=== PATIENT | female | born 1955 | race Caucasian/White ===

== ENCOUNTER 2020-09-09 10:23 | Outpatient (REF) | payer MEDICARE, OTHER, SELFPAY ==
--- NOTE | 2020-09-09 | US_ITS ---
EXAMINATION: US RETROPERITONEAL LIMITED (RENAL ONLY) CLINICAL INFORMATION: Renal stones. COMPARISON: Ultrasound renals only dated 03/08/2020 and 02/06/2020. KUB dated 02/14/2020 and 11/29/2019. CT abdomen and pelvis without contrast dated 02/22/2019. TECHNIQUE: Real-time imaging of the kidneys. FINDINGS: RIGHT KIDNEY: 11 x 3.8 x 4.5 cm (SAG x AP x TRV). The kidney is normal in size, contour, and echogenicity. Renal cortical thickness is normal. No focal parenchymal lesions or hydronephrosis. There are innumerable echogenic stones in the medulla questioning medullary calcinosis. The largest stone measures 1.9 x 0.8 x 0.7 cm in the upper pole. No caliectasis seen. LEFT KIDNEY: 10.3 x 4.2 x 5.2 cm (SAG x AP x TRV). The kidney is normal in size, contour, and echogenicity. Renal cortical thickness is normal. No focal parenchymal lesions or hydronephrosis. There are innumerable echogenic stones in the medulla questioning medullary calcinosis. The largest midpole stone measures 0.7 x 1.0 x 0.8 cm. US/US renal BI IMPRESSION: Bilateral medullary sponge kidney. Largest upper pole right renal and largest midpole left renal stones, as described above, without caliectasis or hydronephrosis.
== END 2020-09-09 10:24 | disposition home or self-care (01) ==
LOC: HO.US 10:23
PROVIDERS: Visit Provider Urology
DX: N20.0 Calculus of kidney (principal)
CPT/HCPCS: 76775

== ENCOUNTER → 2020-09-24 15:11 | Outpatient (BNVA) | payer MEDICARE, OTHER, SELFPAY | PROVIDERS: Visit Provider Urology | DX: Z13.89 Encounter for screening for other disorder (principal) | CPT/HCPCS: Q3014 ==

== ENCOUNTER 2020-10-02 06:51 | Day surgery (SDC) | payer MEDICARE, OTHER, SELFPAY ==
[2020-09-26 10:54] VITALS: BMI 29.9
--- NOTE | 2020-10-02 06:57 | XR_ITS ---
EXAMINATION: XR ABDOMEN KUB CLINICAL INDICATION: Stones COMPARISON: Previous KUB January 2020 and renal ultrasound August 2020 are not appreciated by KUB. and CT of the abdomen and pelvis January 2019 TECHNIQUE: AP view of the abdomen. FINDINGS: No renal stone is seen. The bilateral renal stones seen on ultrasound are not appreciated by KUB. There is a stable pelvic calcification, which when compared with previous CT scan represents a uterine calcification. There is a small stable left pelvic calcification probably representing a calcified phlebolith. Bowel gas pattern is normal. There is scoliosis and degenerative change of the spine. XR/XR KUB IMPRESSION: No renal stone appreciated by KUB
[2020-10-02 07:36] VITALS: BP 115/73; PULSE 76; RESP 16; TEMP 37; O2SAT 96
--- NOTE | 2020-10-02 08:17 | HO.ANESPROP2 ---
[facility], [facility] Past Medical History Medical History Arthritis Back pain Cervical cancer Elevated cholesterol Herniated disc, cervical History of colitis Renal stones Sleep apnea Thyroid disease Surgical History Surgical History H/O colonoscopy History of Hx of cystoscopy Hx of tonsillectomy Hx of total knee arthroplasty Social History Social History Alcohol intake: never Smoking Status: Never smoker Use of substances other than those prescribed or required for medical reasons: No Advance Directives Information Provided: No Meds Allergies Allergy/AdvReac Type Severity Reaction Status Date / Time celecoxib [From CELEBREX] Allergy Intermediate HIVES Unverified 05/16/20 16:30 ciprofloxacin [From CIPRO] Allergy Intermediate HIVES Verified 10/02/20 07:35 clindamycin [CLINDAMYCIN] Allergy Intermediate C-DIF Verified 10/02/20 07:35 hydrochlorothiazide Allergy Intermediate HIVES Unverified 05/16/20 16:30 [HYDROCHLOROTHIAZIDE] levofloxacin [From LEVAQUIN] Allergy Intermediate HIVES Unverified 05/16/20 16:30 Penicillins [PENICILLINS] Allergy Intermediate HIVES Unverified 05/16/20 16:30 Sulfa (Sulfonamide Allergy Intermediate HIVES Unverified 05/16/20 16:30 Antibiotics) [SULFA (SULFONAMIDE ANTIBIOTICS)] phenazopyridine [Pyridium] Allergy Mild Rash Verified 10/02/20 07:35 From TORADOL Allergy Intermediate ? LETHARGY Uncoded 05/16/20 16:30 Home Medications Medication Instructions Recorded Confirmed Type chlorthalidone 1 tab PO DAILY 09/26/20 09/26/20 History cyclobenzaprine 1 tab PO TID 09/26/20 09/26/20 History gabapentin 1 cap PO TID 09/26/20 09/26/20 History levothyroxine 25 mcg PO DAILY 09/26/20 09/26/20 History potassium citrate 1 tab PO TID 09/26/20 09/26/20 History pravastatin 1 tab PO DAILY 09/26/20 09/26/20 History Exam Exam Date and Time: October 02, 2020 0817 Height,Weight and Vital Signs: Height 5 ft 5 in Weight 81.647 kg Last Vital Signs Temp 98.6 F 10/02/20 07:36 Pulse 76 10/02/20 07:36 Resp 16 10/02/20 07:36 BP 115/73 10/02/20 07:36 Pulse Ox 96 10/02/20 07:36
--- NOTE | 2020-10-02 08:47 | MHC.SHP ---
Pre-Procedural Eval Section A The patient is an INPATIENT: No Changes since office visit: No Cold of Flu in the past 2 weeks, No New Medical Problems, No Changes in Medication and No Patient answered all questions Section B Chief Complaint: kidney stone Allergies: Allergies Allergy/AdvReac Type Severity Reaction Status Date / Time celecoxib [From CELEBREX] Allergy Intermediate HIVES Unverified 05/16/20 16:30 ciprofloxacin [From CIPRO] Allergy Intermediate HIVES Verified 10/02/20 07:35 clindamycin [CLINDAMYCIN] Allergy Intermediate C-DIF Verified 10/02/20 07:35 hydrochlorothiazide Allergy Intermediate HIVES Unverified 05/16/20 16:30 [HYDROCHLOROTHIAZIDE] levofloxacin [From LEVAQUIN] Allergy Intermediate HIVES Unverified 05/16/20 16:30 Penicillins [PENICILLINS] Allergy Intermediate HIVES Unverified 05/16/20 16:30 Sulfa (Sulfonamide Allergy Intermediate HIVES Unverified 05/16/20 16:30 Antibiotics) [SULFA (SULFONAMIDE ANTIBIOTICS)] phenazopyridine [Pyridium] Allergy Mild Rash Verified 10/02/20 07:35 From TORADOL Allergy Intermediate ? LETHARGY Uncoded 05/16/20 16:30 Plan Diagnosis/Plan: Unchanged I have reviewed the history and physical and performed a pertinent physical examination on my patient. No changes have occurred unless specified. Right ESWL
[2020-10-02] MEDS: Lactated Ringers 1,000 ML 20 ML IVCONT (08:48)
--- NOTE | 2020-10-02 09:03 | PM.OP ---
Brief Operative Note Date of Service: 10/02/20 Pre-op diagnosis: right renal stone Post-op diagnosis: same Procedure: right eswl Surgeon: Beau Cuevas MD Anesthesia: MAC Estimated blood loss (mL): 0 Pathology: none sent Condition: stable Disposition: same day
--- NOTE | 2020-10-02 09:05 | P.CONAN_ITS ---
[facility] Past Medical History Medical History Arthritis Back pain Cervical cancer Elevated cholesterol Herniated disc, cervical History of colitis Renal stones Sleep apnea Thyroid disease Surgical History Surgical History H/O colonoscopy History of Hx of cystoscopy Hx of tonsillectomy Hx of total knee arthroplasty Social History Social History Alcohol intake: never Smoking Status: Never smoker Use of substances other than those prescribed or required for medical reasons: No Advance Directives Information Provided: No Meds Allergies Allergy/AdvReac Type Severity Reaction Status Date / Time celecoxib [From CELEBREX] Allergy Intermediate HIVES Unverified 05/16/20 16:30 ciprofloxacin [From CIPRO] Allergy Intermediate HIVES Verified 10/02/20 07:35 clindamycin [CLINDAMYCIN] Allergy Intermediate C-DIF Verified 10/02/20 07:35 hydrochlorothiazide Allergy Intermediate HIVES Unverified 05/16/20 16:30 [HYDROCHLOROTHIAZIDE] levofloxacin [From LEVAQUIN] Allergy Intermediate HIVES Unverified 05/16/20 16:30 Penicillins [PENICILLINS] Allergy Intermediate HIVES Unverified 05/16/20 16:30 Sulfa (Sulfonamide Allergy Intermediate HIVES Unverified 05/16/20 16:30 Antibiotics) [SULFA (SULFONAMIDE ANTIBIOTICS)] phenazopyridine [Pyridium] Allergy Mild Rash Verified 10/02/20 07:35 From TORADOL Allergy Intermediate ? LETHARGY Uncoded 05/16/20 16:30 Home Medications Medication Instructions Recorded Confirmed Type chlorthalidone 1 tab PO DAILY 09/26/20 09/26/20 History cyclobenzaprine 1 tab PO TID 09/26/20 09/26/20 History gabapentin 1 cap PO TID 09/26/20 09/26/20 History levothyroxine 25 mcg PO DAILY 09/26/20 09/26/20 History potassium citrate 1 tab PO TID 09/26/20 09/26/20 History pravastatin 1 tab PO DAILY 09/26/20 09/26/20 History Exam Exam Date and Time: October 02, 2020 0905 Height,Weight and Vital Signs: Height 5 ft 5 in Weight 81.647 kg Last Vital Signs Temp 98.6 F 10/02/20 07:36 Pulse 76 10/02/20 07:36 Resp 16 10/02/20 07:36 BP 115/73 10/02/20 07:36 Pulse Ox 96 10/02/20 07:36 Airway Mallampati Class: II TM Dist: >3cm Neck ROM: Full Assessment and Plan Assessment Anesthesia Assessment: Anesthesia Plan Discussed and Chart Reviewed Final Anesthetic Review NPO: Yes ASA Class: II Final Preanesthetic Review: No Changes in Pt Med Stat, Meds/Allgs Chart Reviewed, Consent Obtained/Reviewed and Anes Risks/Benef Reviewed Patient Risk: Low Procedure Risk: Low Assessment/Block/Sedation in SS: Assess/Block/Sedation-SS Anesthetic Plan Anesthetic Plan: MAC: Disposition: Standard PACU
--- NOTE | 2020-10-02 09:09 | W.PM.OPN ---
Operative Note Operative Note Date of Service: 10/02/20 Narrative: PreOperative Diagnosis: right Renal stones Post Operative Diagnosis: right Renal stones Procedure: right ESWL Surgeon: Dr Beau Cuevas Anesthesia: mac/sedation Indications for procedure: They understand ESWL may be a staged procedure and subsequent intervention may be required based on imaging after ESWL. They also understand there is a risk of bleeding, infection, damage to adjacent organs. Procedure: After informed consent was verified the patient was brought to the operating room and placed in a supine position. Anesthesia was performed per protocol. Safety pause time-out was performed. Imaging was in the room and laterality confirmed. ESWL was performed. The 1st 500 shocks were performed at 60 hertz. These were performed with increasing power. Once maximum power was reached the rate was increased to 180 hertz. A total of 2500 shocks were given. Fluoroscopy showed stone disintegration. They tolerated procedure well and was transferred to the recovery area upon completion. linear ston on righty side in setting of MSK
[2020-10-02 09:26] VITALS: BP 101/67; PULSE 58; RESP 16; TEMP 36.6; O2SAT 95
[2020-10-02 09:41] VITALS: BP 110/70; PULSE 56; RESP 18; O2SAT 95
[2020-10-02 09:56] VITALS: BP 109/67; PULSE 53; RESP 18; O2SAT 94
[2020-10-02 10:11] VITALS: BP 105/75; PULSE 69; RESP 18; O2SAT 96
[2020-10-02 10:30] VITALS: TEMP 36.6
--- NOTE | 2020-10-02 10:43 | HO.POSTANES ---
Post Anesthesia Evaluation Post Anesthesia Evaluation Vital Signs: Vital Signs Temp Pulse Resp BP Pulse Ox 10/02/20 10:30 97.8 F 10/02/20 10:11 69 18 105/75 96 10/02/20 09:56 53 18 109/67 94 10/02/20 09:41 56 18 110/70 95 10/02/20 09:26 97.8 F 58 16 101/67 95 10/02/20 07:36 98.6 F 76 16 115/73 96 Anesthesia: Monitored Mental Status: Awake Pain Control: Satisfactory Nausea/Vomiting: None Hydration: Adequate Anesthesia-Related Issues: No Anes. Related Issues
== END 2020-10-02 11:09 | disposition home or self-care (01) ==
PROVIDERS: PCP Internal Medicine; Visit Provider Urology
PROC: (CPT 50590; principal; 2020-10-02 08:40)
DX: N20.0 Calculus of kidney (principal); Z87.442 Personal history of urinary calculi; G47.33 Obstructive sleep apnea (adult) (pediatric); Z99.89 Dependence on other enabling machines and devices; Z79.899 Other long term (current) drug therapy; Z88.0 Allergy status to penicillin; Z88.1 Allergy status to other antibiotic agents; Z88.2 Allergy status to sulfonamides; Z88.8 Allergy status to other drugs, medicaments and biological substances
CPT/HCPCS: 50590; 74018; J1885; J2405; J3010

== ENCOUNTER → 2020-10-29 08:55 | Outpatient (BNVA) | payer MEDICARE, OTHER, SELFPAY | PROVIDERS: PCP Internal Medicine; Visit Provider Urology | DX: N20.0 Calculus of kidney (principal) | CPT/HCPCS: 99212; Q3014 ==

== ENCOUNTER 2020-10-30 06:03 | Day surgery (SDC) | payer MEDICARE, OTHER, SELFPAY ==
[2020-10-24 12:21] VITALS: BMI 29.9
--- NOTE | 2020-10-29 10:08 | HO.ANESPROP2 ---
Documented by User: Alma Rosa Lyn 10/29/20 10:16 HPI - Anesthesia Eval Consult details Narrative: 65yo F for Left ESWL Last ESWL 10/02/20 with MAC: Fent 100, Prop 200, Zofran 4 PMFSH Active Problems Active Problems: All Active Problems (Updated 09/26/20 @ 10:53 by Manuela Lam) Renal stones (Acute) Past Medical History Medical History Arthritis Back pain Cervical cancer Elevated cholesterol Herniated disc, cervical History of colitis Renal stones Sleep apnea Thyroid disease Surgical History Surgical History H/O colonoscopy History of Hx of cystoscopy Hx of lithotripsy Hx of tonsillectomy Hx of total knee arthroplasty Social History Social History Alcohol intake: never Smoking Status: Never smoker Have you been hit, kicked, punched, or otherwise hurt by someone within the past year? If so, by whom?: No Advance Directives Information Provided: No Meds Allergies Allergy/AdvReac Type Severity Reaction Status Date / Time celecoxib [From CELEBREX] Allergy Intermediate HIVES Verified 10/30/20 06:10 ciprofloxacin [From CIPRO] Allergy Intermediate HIVES Verified 10/02/20 07:35 clindamycin [CLINDAMYCIN] Allergy Intermediate C-DIF Verified 10/02/20 07:35 hydrochlorothiazide Allergy Intermediate HIVES Verified 10/30/20 06:11 [HYDROCHLOROTHIAZIDE] levofloxacin [From LEVAQUIN] Allergy Intermediate HIVES Verified 10/30/20 06:10 Penicillins [PENICILLINS] Allergy Intermediate HIVES Verified 10/30/20 06:10 Sulfa (Sulfonamide Allergy Intermediate HIVES Verified 10/30/20 06:11 Antibiotics) [SULFA (SULFONAMIDE ANTIBIOTICS)] phenazopyridine [Pyridium] Allergy Mild Rash Verified 10/02/20 07:35 From TORADOL Allergy Intermediate ? LETHARGY Uncoded 05/16/20 16:30 Home Medications Medication Instructions Recorded Confirmed Last Taken Type chlorthalidone 1 tab PO DAILY 09/26/20 10/24/20 Unknown History cyclobenzaprine 1 tab PO TID 09/26/20 10/24/20 Unknown History gabapentin 1 cap PO TID 09/26/20 10/24/20 Unknown History levothyroxine 25 mcg PO DAILY 09/26/20 10/24/20 10/30/20 History potassium citrate 1 tab PO TID 09/26/20 10/24/20 Unknown History pravastatin 1 tab PO DAILY 09/26/20 10/24/20 Unknown History Tylenol 500 10/30/20 10/30/20 History Exam Exam Date and Time: October 29, 2020 1008 Height,Weight and Vital Signs: Height 5 ft 5 in Weight 81.647 kg Assessment and Plan Assessment Anesthesia Assessment: Chart Reviewed Documented by User: Sridhar Middleton 10/30/20 07:28 PMF Past Medical History Medical History Arthritis Back pain Cervical cancer Elevated cholesterol Herniated disc, cervical History of colitis Renal stones Sleep apnea Thyroid disease Surgical History Surgical History H/O colonoscopy History of Hx of cystoscopy Hx of lithotripsy Hx of tonsillectomy Hx of total knee arthroplasty Social History Social History Alcohol intake: never Smoking Status: Never smoker Have you been hit, kicked, punched, or otherwise hurt by someone within the past year? If so, by whom?: No Advance Directives Information Provided: No Meds Allergies Allergy/AdvReac Type Severity Reaction Status Date / Time celecoxib [From CELEBREX] Allergy Intermediate HIVES Verified 10/30/20 06:10 ciprofloxacin [From CIPRO] Allergy Intermediate HIVES Verified 10/02/20 07:35 clindamycin [CLINDAMYCIN] Allergy Intermediate C-DIF Verified 10/02/20 07:35 hydrochlorothiazide Allergy Intermediate HIVES Verified 10/30/20 06:11 [HYDROCHLOROTHIAZIDE] levofloxacin [From LEVAQUIN] Allergy Intermediate HIVES Verified 10/30/20 06:10 Penicillins [PENICILLINS] Allergy Intermediate HIVES Verified 10/30/20 06:10 Sulfa (Sulfonamide Allergy Intermediate HIVES Verified 10/30/20 06:11 Antibiotics) [SULFA (SULFONAMIDE ANTIBIOTICS)] phenazopyridine [Pyridium] Allergy Mild Rash Verified 10/02/20 07:35 From TORADOL Allergy Intermediate ? LETHARGY Uncoded 05/16/20 16:30 Home Medications Medication Instructions Recorded Confirmed Last Taken Type chlorthalidone 1 tab PO DAILY 09/26/20 10/24/20 Unknown History cyclobenzaprine 1 tab PO TID 09/26/20 10/24/20 Unknown History gabapentin 1 cap PO TID 09/26/20 10/24/20 Unknown History levothyroxine 25 mcg PO DAILY 09/26/20 10/24/20 10/30/20 History potassium citrate 1 tab PO TID 09/26/20 10/24/20 Unknown History pravastatin 1 tab PO DAILY 09/26/20 10/24/20 Unknown History Tylenol 500 10/30/20 10/30/20 History Exam Airway Mallampati Class: II TM Dist: >3cm Neck ROM: Full Loose/Missing/Broken Teeth: No Heart: [id number] Lungs: cta b/l Assessment and Plan Assessment Anesthesia Assessment: Anesthesia Plan Discussed, PAT Visit and Chart Reviewed Final Anesthetic Review NPO: Yes ASA Class: II Final Preanesthetic Review: No Changes in Pt Med Stat, Meds/Allgs Chart Reviewed, Consent Obtained/Reviewed and Anes Risks/Benef Reviewed Patient Risk: Low Procedure Risk: Low Assessment/Block/Sedation in SS: Assess/Block/Sedation-SS Anesthetic Plan Anesthetic Plan: GA and Agree w/ Assess. and Plan Disposition: Standard PACU
--- NOTE | ~2020-10-30 | XR_ITS ---
EXAMINATION: XR ABDOMEN KUB CLINICAL INDICATION: Nephrolithiasis. COMPARISON: None TECHNIQUE: AP view of the abdomen. FINDINGS: There is scattered stool and gas seen throughout the colon without any significant distention. No organomegaly. No radiopaque calculi. There is mild levoscoliosis at dorsolumbar junction. Mild facet joint arthropathy seen on the left at L4-L5 and L5-S1 disc levels. No lytic process. The paravertebral soft tissues are normal. XR/XR KUB IMPRESSION: Mild constipation. Levoscoliosis at dorsal lumbar junction.
[2020-10-30 06:25] VITALS: BP 124/76; PULSE 75; RESP 18; TEMP 36.6; O2SAT 98; BMI 11.0
[2020-10-30] MEDS: Lactated Ringers 1,000 ML 100 ML IVCONT (06:41)
--- NOTE | 2020-10-30 07:34 | MHC.SHP ---
Pre-Procedural Eval Section A Changes since office visit: No Cold of Flu in the past 2 weeks, No New Medical Problems, No Changes in Medication and No Patient answered all questions The History & Physical has been completed within 30 days and I have reviewed it.: Yes Section B Chief Complaint: kidnet stone Allergies: Allergies Allergy/AdvReac Type Severity Reaction Status Date / Time celecoxib [From CELEBREX] Allergy Intermediate HIVES Verified 10/30/20 06:10 ciprofloxacin [From CIPRO] Allergy Intermediate HIVES Verified 10/02/20 07:35 clindamycin [CLINDAMYCIN] Allergy Intermediate C-DIF Verified 10/02/20 07:35 hydrochlorothiazide Allergy Intermediate HIVES Verified 10/30/20 06:11 [HYDROCHLOROTHIAZIDE] levofloxacin [From LEVAQUIN] Allergy Intermediate HIVES Verified 10/30/20 06:10 Penicillins [PENICILLINS] Allergy Intermediate HIVES Verified 10/30/20 06:10 Sulfa (Sulfonamide Allergy Intermediate HIVES Verified 10/30/20 06:11 Antibiotics) [SULFA (SULFONAMIDE ANTIBIOTICS)] phenazopyridine [Pyridium] Allergy Mild Rash Verified 10/02/20 07:35 From TORADOL Allergy Intermediate ? LETHARGY Uncoded 05/16/20 16:30 Plan Diagnosis/Plan: Unchanged I have reviewed the history and physical and performed a pertinent physical examination on my patient. No changes have occurred unless specified. Left ESWL
--- NOTE | 2020-10-30 07:46 | PM.OP ---
Brief Operative Note Date of Service: 10/30/20 Pre-op diagnosis: left renal stone Post-op diagnosis: same Procedure: left eswl Surgeon: Beau Cuevas MD Anesthesia: MAC Estimated blood loss (mL): 0 Pathology: none sent Condition: stable Disposition: same day
--- NOTE | 2020-10-30 07:47 | W.PM.OPN ---
Operative Note Operative Note Date of Service: 10/30/20 Narrative: PreOperative Diagnosis: left Renal stones Post Operative Diagnosis: Renal stones Procedure: left ESWL Surgeon: Dr Beau Cuevas Anesthesia: mac/sedation Indications for procedure: They understand ESWL may be a staged procedure and subsequent intervention may be required based on imaging after ESWL. They also understand there is a risk of bleeding, infection, damage to adjacent organs. Medullary sponge kidney Procedure: After informed consent was verified the patient was brought to the operating room and placed in a supine position. Anesthesia was performed per protocol. Safety pause time-out was performed. Imaging was in the room and laterality confirmed. ESWL was performed. The 1st 500 shocks were performed at 60 hertz. These were performed with increasing power. Once maximum power was reached the rate was increased to 180 hertz. A total of 2500 shocks were given. Fluoroscopy showed stone disintegration. They tolerated procedure well and was transferred to the recovery area upon completion.
[2020-10-30 08:21] VITALS: BP 106/70; PULSE 61; RESP 20; TEMP 36.5; O2SAT 99
[2020-10-30 08:35] VITALS: BP 116/71; PULSE 59; RESP 20
[2020-10-30] MEDS: ondansetron HCL 4 MG/2 ML VIAL IVPUSH (08:45)
[2020-10-30] MEDS: Acetaminophen 325 MG TABLET 650 MG PO (08:54)
[2020-10-30 08:59] VITALS: BP 129/72; PULSE 56; RESP 20; O2SAT 98
[2020-10-30 09:35] VITALS: BP 133/85; PULSE 57; RESP 16; TEMP 36.5; O2SAT 97
== END 2020-10-30 10:10 | disposition home or self-care (01) ==
PROVIDERS: PCP Internal Medicine; Visit Provider Urology
PROC: (CPT 50590; principal; 2020-10-30 07:30)
DX: N20.0 Calculus of kidney (principal); Z87.442 Personal history of urinary calculi; Q61.5 Medullary cystic kidney; G47.33 Obstructive sleep apnea (adult) (pediatric); Z99.89 Dependence on other enabling machines and devices; Z79.899 Other long term (current) drug therapy; Z88.0 Allergy status to penicillin; Z88.1 Allergy status to other antibiotic agents; Z88.8 Allergy status to other drugs, medicaments and biological substances
CPT/HCPCS: 50590; 74018; J2250; J2405; J3010

== ENCOUNTER 2020-11-14 10:49 | Outpatient (REF) | payer MEDICARE, OTHER, SELFPAY ==
--- NOTE | ~2020-11-14 | US_ITS ---
EXAMINATION: US RETROPERITONEAL LIMITED (RENAL ONLY) CLINICAL INFORMATION: Calculus of kidney. COMPARISON: X-ray abdomen KUB 10/30/2020 and 10/02/2020. Renal ultrasound 09/09/2020 and 03/08/2020. CT abdomen and pelvis 02/22/2019. TECHNIQUE: Real-time imaging of the kidneys. FINDINGS: RIGHT KIDNEY: 10.5 x 4.5 x 4.7 cm (SAG x AP x TRV). The kidney is normal in size, contour, and echogenicity. Renal cortical thickness is normal. No focal parenchymal lesions. There are multiple echogenic stones. The largest stone measures 1.2 x 0.5 x 1.0 cm in the upper pole. No caliectasis or hydronephrosis seen. LEFT KIDNEY: 10.8 x 4.4 x 4.0 cm (SAG x AP x TRV). The kidney is normal in size, contour, and echogenicity. Renal cortical thickness is normal. No focal parenchymal lesions or hydronephrosis. There are multiple echogenic stones measuring 0.9 x 0.5 x 0.9 cm. The largest echogenic stone measures 0.9 x 0.5 x 0.9 cm. US/US renal BI IMPRESSION: Multiple small echogenic calculi and echogenic renal pyramids suggestive of medullary sponge kidney and medullary calcinosis. The largest calculus as measured above. No caliectasis or hydronephrosis seen.
== END 2020-11-14 10:50 | disposition home or self-care (01) ==
LOC: HO.US 10:49
PROVIDERS: Visit Provider Urology
DX: N20.0 Calculus of kidney (principal)
CPT/HCPCS: 76775

== ENCOUNTER → 2020-11-21 09:10 | Outpatient (BNVA) | payer MEDICARE, OTHER, SELFPAY | PROVIDERS: PCP Internal Medicine; Visit Provider Urology | DX: N20.0 Calculus of kidney (principal); Q61.5 Medullary cystic kidney | CPT/HCPCS: Q3014 ==

== ENCOUNTER 2020-12-02 10:55 | Day surgery (SDC) | payer MEDICARE, OTHER, SELFPAY ==
--- NOTE | 2020-11-29 13:40 | P.CONAN_ITS ---
Documented by User: Alma Rosa Lyn 11/29/20 13:41 HPI - Anesthesia Eval Consult details Narrative: 65yo F for Cystoscopy, Ureteroscopy, Laser Ablation s/p ESWL with TIVA 10/30/20 PMFSH Active Problems Active Problems: All Active Problems (Updated 11/21/20 @ 09:38 by Beau Cuevas MD) Medullary sponge kidney (Acute) Renal stones (Acute) Past Medical History Medical History Arthritis Back pain Cervical cancer Elevated cholesterol Herniated disc, cervical History of colitis Renal stones Sleep apnea Thyroid disease Surgical History Surgical History H/O colonoscopy History of Hx of cystoscopy Hx of lithotripsy Hx of tonsillectomy Hx of total knee arthroplasty Social History Social History Alcohol intake: never Smoking Status: Never smoker Use of substances other than those prescribed or required for medical reasons: No Have you been hit, kicked, punched, or otherwise hurt by someone within the past year? If so, by whom?: No Advance Directives: No Advance Directives Information Provided: Yes Meds Allergies Allergy/AdvReac Type Severity Reaction Status Date / Time celecoxib [From CELEBREX] Allergy Intermediate HIVES Verified 12/02/20 11:29 ciprofloxacin [From CIPRO] Allergy Intermediate HIVES Verified 12/02/20 11:29 clindamycin [CLINDAMYCIN] Allergy Intermediate C-DIF Verified 12/02/20 11:29 hydrochlorothiazide Allergy Intermediate HIVES Verified 12/02/20 11:29 [HYDROCHLOROTHIAZIDE] levofloxacin [From LEVAQUIN] Allergy Intermediate HIVES Verified 12/02/20 11:29 Penicillins [PENICILLINS] Allergy Intermediate HIVES Verified 12/02/20 11:29 Sulfa (Sulfonamide Allergy Intermediate HIVES Verified 12/02/20 11:29 Antibiotics) [SULFA (SULFONAMIDE ANTIBIOTICS)] phenazopyridine [Pyridium] Allergy Mild Rash Verified 12/02/20 11:29 From TORADOL Allergy Intermediate ? LETHARGY Uncoded 12/02/20 11:29 Home Medications Medication Instructions Recorded Confirmed Last Taken Type chlorthalidone 1 tab PO DAILY 09/26/20 10/24/20 Unknown History cyclobenzaprine 1 tab PO TID 09/26/20 10/24/20 Unknown History gabapentin 1 cap PO TID 09/26/20 10/24/20 Unknown History levothyroxine 25 mcg PO DAILY 09/26/20 10/24/20 10/30/20 History potassium citrate 1 tab PO TID 09/26/20 10/24/20 Unknown History pravastatin 1 tab PO DAILY 09/26/20 10/24/20 Unknown History Tylenol 500 10/30/20 10/30/20 History methylprednisolone 4 mg tablets in mg PO 11/21/20 Unknown History a dose pack Exam Exam Date and Time: November 29, 2020 1340 Assessment and Plan Assessment Anesthesia Assessment: Chart Reviewed Documented by User: Ena Thomas 12/02/20 13:34 [facility] Past Medical History Medical History Arthritis Back pain Cervical cancer Elevated cholesterol Herniated disc, cervical History of colitis Renal stones Sleep apnea Thyroid disease Surgical History Surgical History H/O colonoscopy History of Hx of cystoscopy Hx of lithotripsy Hx of tonsillectomy Hx of total knee arthroplasty Social History Social History Alcohol intake: never Smoking Status: Never smoker Use of substances other than those prescribed or required for medical reasons: No Have you been hit, kicked, punched, or otherwise hurt by someone within the past year? If so, by whom?: No Advance Directives: No Advance Directives Information Provided: Yes Meds Allergies Allergy/AdvReac Type Severity Reaction Status Date / Time celecoxib [From CELEBREX] Allergy Intermediate HIVES Verified 12/02/20 11:29 ciprofloxacin [From CIPRO] Allergy Intermediate HIVES Verified 12/02/20 11:29 clindamycin [CLINDAMYCIN] Allergy Intermediate C-DIF Verified 12/02/20 11:29 hydrochlorothiazide Allergy Intermediate HIVES Verified 12/02/20 11:29 [HYDROCHLOROTHIAZIDE] levofloxacin [From LEVAQUIN] Allergy Intermediate HIVES Verified 12/02/20 11:29 Penicillins [PENICILLINS] Allergy Intermediate HIVES Verified 12/02/20 11:29 Sulfa (Sulfonamide Allergy Intermediate HIVES Verified 12/02/20 11:29 Antibiotics) [SULFA (SULFONAMIDE ANTIBIOTICS)] phenazopyridine [Pyridium] Allergy Mild Rash Verified 12/02/20 11:29 From TORADOL Allergy Intermediate ? LETHARGY Uncoded 12/02/20 11:29 Home Medications Medication Instructions Recorded Confirmed Last Taken Type chlorthalidone 1 tab PO DAILY 09/26/20 10/24/20 Unknown History cyclobenzaprine 1 tab PO TID 09/26/20 10/24/20 Unknown History gabapentin 1 cap PO TID 09/26/20 10/24/20 Unknown History levothyroxine 25 mcg PO DAILY 09/26/20 10/24/20 10/30/20 History potassium citrate 1 tab PO TID 09/26/20 10/24/20 Unknown History pravastatin 1 tab PO DAILY 09/26/20 10/24/20 Unknown History Tylenol 500 10/30/20 10/30/20 History methylprednisolone 4 mg tablets in mg PO 11/21/20 Unknown History a dose pack Exam Airway Mallampati Class: II TM Dist: >3cm Neck ROM: Full Assessment and Plan Assessment Anesthesia Assessment: Anesthesia Plan Discussed and Chart Reviewed Final Anesthetic Review NPO: Yes ASA Class: II Final Preanesthetic Review: No Changes in Pt Med Stat, Meds/Allgs Chart Reviewed, Consent Obtained/Reviewed and Anes Risks/Benef Reviewed Patient Risk: Intermediate Procedure Risk: Low Assessment/Block/Sedation in SS: Assess/Block/Sedation-SS Anesthetic Plan Anesthetic Plan: GA Disposition: Standard PACU
[2020-12-02] VITALS (13 sets, daily range): BP systolic 119–158; BP diastolic 65–84; PULSE 62–74; RESP 10–20; TEMP 36.4–36.9; O2SAT 88–98; BMI 29.9
[2020-12-02] MEDS: Lactated Ringers 1,000 ML 100 ML IVCONT (12:05)
--- NOTE | 2020-12-02 13:38 | MHC.SHP ---
Pre-Procedural Eval Section A The patient is an INPATIENT: No Changes since office visit: No Cold of Flu in the past 2 weeks, No New Medical Problems, No Changes in Medication and No Patient answered all questions The History & Physical has been completed within 30 days and I have reviewed it.: Yes Section B Chief Complaint: Calculus of Kidney Allergies: Allergies Allergy/AdvReac Type Severity Reaction Status Date / Time celecoxib [From CELEBREX] Allergy Intermediate HIVES Verified 12/02/20 11:29 ciprofloxacin [From CIPRO] Allergy Intermediate HIVES Verified 12/02/20 11:29 clindamycin [CLINDAMYCIN] Allergy Intermediate C-DIF Verified 12/02/20 11:29 hydrochlorothiazide Allergy Intermediate HIVES Verified 12/02/20 11:29 [HYDROCHLOROTHIAZIDE] levofloxacin [From LEVAQUIN] Allergy Intermediate HIVES Verified 12/02/20 11:29 Penicillins [PENICILLINS] Allergy Intermediate HIVES Verified 12/02/20 11:29 Sulfa (Sulfonamide Allergy Intermediate HIVES Verified 12/02/20 11:29 Antibiotics) [SULFA (SULFONAMIDE ANTIBIOTICS)] phenazopyridine [Pyridium] Allergy Mild Rash Verified 12/02/20 11:29 From TORADOL Allergy Intermediate ? LETHARGY Uncoded 12/02/20 11:29 Plan Diagnosis/Plan: Unchanged (Right renal ureteroscopy laser lithotripsy) I have reviewed the history and physical and performed a pertinent physical examination on my patient. No changes have occurred unless specified.
--- NOTE | 2020-12-02 14:19 | PM.OP ---
Brief Operative Note Date of Service: 12/02/20 Pre-op diagnosis: Medullary sponge kidney Post-op diagnosis: same Procedure: Cystoscopy, right retrograde Right ureteroscopy laser lithotripsy Surgeon: Beau Cuevas MD Estimated blood loss (mL): 0 Pathology: none sent Condition: stable Disposition: same day
--- NOTE | 2020-12-02 14:20 | P.OP_ITS ---
Operative Note Operative Note Date of Service: 12/02/20 Narrative: PreOperative Diagnosis: Medullary sponge kidney Post Operative Diagnosis: Dose sponge kidney Procedure: - right cystoscopy, retrograde - right dilatation of ureteric orifice under fluoroscopy - right ureteroscopy, laser lithotripsy Surgeon: Dr Beau Cuevas Anesthesia: General Indications for procedure: Medullary sponge kidney Multiple prior procedures On most recent imaging shows small stones presumably subepithelial bilateral. Underwent left ESWL. On discussion suggested undergoing right ureteroscopy is stones were seen across multiple calices. She is willing to do this but does not want to have a stent placed. Procedure: After informed consent was verified patient was brought to the operating placed in supine position. Anesthesia was administered per protocol. Patient was placed in modified dorsal lithotomy position and prepped and draped in a sterile fashion. Safety pause time-out and side of surgery confirmed. Antibiotics confirmed. Twenty-two Ethiopian cystoscope placed per urethra. Both ureteric orifices normal position. The right ureteric orifice which appeared wide enough was cannulated and retrograde examination performed. No filling defects seen. Sensor guidewire placed up to level the renal pelvis. Rigid scope removed. [place] dilator used under fluoroscopy to dilate right ureter. The flexible ureteral scope was placed over the wire up to level renal pelvis. The renal pelvis was examined. In the upper calyx upper middle calyx and lower calyx epithelial stones were seen. In all areas we used a low powered laser to open the epithelium and released the stones. Quite a significant amount of small stone debris was formed. There was also some redness around the base of papillae in some of the calices. Unsure of pathology. Once all of these had been on route and there were greater than 15 small stones decision was made to remove ureteral scope. These should all pass easily however there is a small chance that could bunched together. She tolerated procedure well was extubated in operating room transferred in stable condition to the recovery area. From a stone perspective she is on combination of chlorthalidone and potassium citrate. Would recommend adding vitamin B6 and allopurinol. May need to change chlorthalidone to indapamide as this has less calcium attenuation long-term effect. Pathology: None Drains: None
[2020-12-02] MEDS: fentaNYL citrate/PF 100 MCG/2 ML VIAL 50 MCG IVPUSH ×2 (14:49→14:57)
[2020-12-02] MEDS: ondansetron HCL 4 MG/2 ML VIAL IVPUSH (14:52)
[2020-12-02] MEDS: oxyCODONE HCl Immed Release 5 MG TABLET PO (15:47)
== END 2020-12-02 16:59 | disposition home or self-care (01) ==
PROVIDERS: PCP Internal Medicine; Visit Provider Urology
PROC: (CPT 52353; principal; 2020-12-02 13:30)
DX: N20.0 Calculus of kidney (principal); G47.33 Obstructive sleep apnea (adult) (pediatric); Z85.41 Personal history of malignant neoplasm of cervix uteri; E03.9 Hypothyroidism, unspecified; Q61.5 Medullary cystic kidney
CPT/HCPCS: 52353; C1769; J0690; J1100; J2405; J2550; J3010; Q9967

== ENCOUNTER 2020-12-05 15:46 | Emergency (ER) | payer MEDICARE, OTHER, SELFPAY ==
--- NOTE | ~2020-12-05 | XR_ITS ---
[id number] RenuJuve brenner EXAMINATION: PORTABLE CHEST 1 VIEW CLINICAL INFORMATION: Fever. COMPARISON: 10/20/2019. TECHNIQUE: Portable frontal view of the chest was obtained. FINDINGS: The lungs are hypoexpanded with minimal basilar markings reflecting scarring or atelectasis, similar to the prior study. No focal infiltrate, effusion, edema, or pneumothorax. Cardiac and mediastinal silhouettes are within normal limits for technique. No acute bony abnormality seen. Cervical spine hardware partially XR/XR chest 1V IMPRESSION: Chronic appearing changes similar to prior study without acute finding
--- NOTE | ~2020-12-05 | US_ITS ---
PATIENT NAME: Juve Licona PATIENT DATE OF : 1955 ACCESSION NUMBER: [id number] EXAMINATION: US RETROPERITONEAL LIMITED (RENAL ONLY) CLINICAL INFORMATION: Pain. COMPARISON: Renal ultrasound 11/14/2020 TECHNIQUE: Ultrasound of both kidneys was performed FINDINGS: RIGHT KIDNEY: 11.5 x 5.5 x 5.6 cm (SAG x AP x TRV). The kidney is normal in size, contour, and echogenicity. Renal cortical thickness is normal. Lower pole nonobstructing 4 x 3 mm calculus is present. No focal parenchymal lesions. No hydronephrosis. LEFT KIDNEY: 12.0 x 4.5 x 4.5 cm (SAG x AP x TRV). The kidney is normal in size, contour, and echogenicity. Renal cortical thickness is normal. 3 renal calculi are noted one in the upper pole mid pole and lower pole measuring 4 x 3 mm, 4 x 3 mm and 2 x 2 mm respectively. No focal parenchymal lesions. No hydronephrosis. US/US renal BI IMPRESSION: Echogenic foci in both kidneys, left greater than right as suggesting renal stones. These have been seen in the past. No evidence of obstruction..
[2020-12-05 15:47] VITALS: BP 120/57; PULSE 113; RESP 16; TEMP 37.9; O2SAT 95; BMI 29.9
[2020-12-05 16:22] LABS: MANUAL DIFF FLAG NO
[2020-12-05 16:24] LABS: Basophils Percent Auto 0.1 % (0-2); Eosinophils Percent Auto 0.1 % (0-4); Hematocrit 38.7 % (37-47); Hemoglobin 13.1 g/dl (12.0-16.0); Imm Gran Abs Auto 0.11 X10*3/uL (0.00-0.03); Imm Gran Pct Auto 0.6 % (0.0-0.4); Lymphocytes Percent Auto 5.3 % (20-40); Mean Corpuscular HGB Conc 33.9 g/dl (31.0-35.0); Mean Corpuscular Hemoglobin 31.2 pg (27.0-33.0); Mean Corpuscular Volume 92.1 fL (80-98); Mean Platelet Volume 10.8 fL (9.4-12.3); Monocytes Absolute Auto 1.4 X10*3/uL (0.1-1.2); Neutrophils Percent Auto 86.9 % (45-73); Platelet Count 155 X10*3/uL (160-400); White Blood Count 19.6 X10*3/uL (4.8-10.8)
[2020-12-05 16:36] LABS: Lactic Acid 0.9 mmol/L (0.5-2.0)
--- NOTE | 2020-12-05 16:42 | ED.FEVER ---
HPI - Fever General Chief Complaint: Fever Stated Complaint: ?Kidney infection Time Seen by Provider: 12/05/20 16:38 Source: patient Mode of arrival: ambulatory Limitations: no limitations History of Present Illness HPI Narrative: 65-year-old female came in for evaluation of a fever after urological procedure 3 days ago. Patient had right cystoscopy with dilatation of ureteral cough is under fluoroscopy with laser lithotripsy done 3 days ago under general anesthesia, reportedly in operative report that the stone was removed with a lot of small callus formed and recovery, patient has been complaining of bilateral flank pain but patient has a chronic flank pain not a chronic issue with her kidney, patient also been complaining of fluctuation of fever and chills, with nausea and vomiting, in no severe abdominal pain all of diarrhea. Because patient's tachycardia and fever and leukocytosis has are and patient meeting criteria for SIRS, will start the patient on IV clothes I said, and ceftriaxone patient has multiple drug allergies patient been taking Keflex at home. Related Data Home Medications Medication Instructions Recorded Confirmed chlorthalidone 1 tab PO DAILY 09/26/20 10/24/20 cyclobenzaprine 1 tab PO TID 09/26/20 10/24/20 gabapentin 1 cap PO TID 09/26/20 10/24/20 levothyroxine 25 mcg PO DAILY 09/26/20 10/24/20 potassium citrate 1 tab PO TID 09/26/20 10/24/20 pravastatin 1 tab PO DAILY 09/26/20 10/24/20 Tylenol 500 10/30/20 methylprednisolone 4 mg tablets in mg PO 11/21/20 a dose pack Previous Rx's Medication Instructions Recorded prochlorperazine maleate 10 mg 10 mg PO TID PRN 30 Days #90 tab 08/08/20 tablet pyridoxine (vitamin B6) [Vitamin 100 mg PO DAILY 90 Days #90 tab 10/02/20 B-6] tamsulosin 0.4 mg PO BEDTIME #14 cap 10/02/20 tramadol 50 mg PO Q6H PRN #14 tab 10/02/20 tamsulosin 0.4 mg PO BEDTIME #30 cap 10/30/20 allopurinol 100 mg PO DAILY 90 Days #90 tab 12/02/20 cephalexin 500 mg capsule 500 mg PO TID 5 Days #15 cap 12/04/20 Allergies Allergy/AdvReac Type Severity Reaction Status Date / Time celecoxib [From CELEBREX] Allergy Intermediate HIVES Verified 12/02/20 11:29 ciprofloxacin [From CIPRO] Allergy Intermediate HIVES Verified 12/02/20 11:29 clindamycin [CLINDAMYCIN] Allergy Intermediate C-DIF Verified 12/02/20 11:29 hydrochlorothiazide Allergy Intermediate HIVES Verified 12/02/20 11:29 [HYDROCHLOROTHIAZIDE] levofloxacin [From LEVAQUIN] Allergy Intermediate HIVES Verified 12/02/20 11:29 Penicillins [PENICILLINS] Allergy Intermediate HIVES Verified 12/02/20 11:29 Sulfa (Sulfonamide Allergy Intermediate HIVES Verified 12/02/20 11:29 Antibiotics) [SULFA (SULFONAMIDE ANTIBIOTICS)] phenazopyridine [Pyridium] Allergy Mild Rash Verified 12/02/20 11:29 From TORADOL Allergy Intermediate ? LETHARGY Uncoded 12/02/20 11:29 Review of Systems Review of Systems: All other systems are reviewed and are negative Constitutional: Reports as per HPI and Reports no additional constitutional complaints Eyes: Reports as per HPI and Reports no additional eye complaints Reports system reviewed and no additional complaints, except as documented Cardiovascular: Reports as per HPI and Reports no additional cardiovascular complaints Respiratory: Reports as per HPI and Reports no additional respiratory complaints Gastrointestinal: Reports as per HPI and Reports no additional gastrointestinal complaints Genitourinary: Reports no additional female genitourinary complaints Musculoskeletal: Reports no additional musculoskeletal complaints Skin/Breast: Reports system reviewed and no additional complaints, except as docu Psychiatric: Reports no additional psychiatric complaints Endocrine: Reports no additional endocrine complaints Hematologic/Lymphatic: Reports no additional hematologic/lymphatic complaints Allergic/Immunologic: Reports no additional allergic/immunologic complaints Reports system reviewed and no additional complaints, except as documented and Reports Abnormal speech present [facility] Past Medical History Medical History Arthritis Back pain Cervical cancer Elevated cholesterol Herniated disc, cervical History of colitis Renal stones Sleep apnea Thyroid disease Surgical History H/O colonoscopy History of Hx of cystoscopy Hx of lithotripsy Hx of tonsillectomy Hx of total knee arthroplasty Social History Social History Alcohol intake: never Smoking Status: Never smoker Advance Directives: No Advance Directives Information Provided: Yes Physical Exam Vital Signs: Vital Signs: Last Vital Signs Temp 97.8 F 12/05/20 21:09 Pulse 74 12/05/20 21:09 Resp 16 12/05/20 21:09 BP 119/75 12/05/20 21:09 Pulse Ox 98 12/05/20 21:09 Body Mass Index 29.9 Vital signs have been reviewed as appeared to be correct. Blood pressure normal. Heart rate elevated. Respiration rate normal. Temperature febrile . Oxygen saturation normal. Appearance: Alert. Oriented X3. No acute distress. Head: Normal external exam. Normocephalic. Atraumatic. No Aragon signs noted. No raccoon eyes noted Eyes: PERRLA. EOMI. Conjunctiva and sclera normal. Eyelids normal. ENT: TM's Normal. Pharynx normal. Uvula midline. Moist mucous membranes. No trismus noted. No drooling noted. No muffled voice noted. Neck: Normal inspection. Neck supple. FROM. No adenopathy. Thyroid Normal. No meningeal signs. No neck mass noted. CVS: Normal heart rate and rhythm. Heart sound normal. No murmurs noted. Pulses normal throughout. Respiratory: No respiratory distress. Painless inspiration. Breath sounds normal. No wheezes/rales/rhonchi noted. Chest nontender. No accessory muscle usage noted or decreased air movement noted. Abdomen: Soft and nontender. Bowel sounds normal in all 4 quadrants. No distention noted. No organomegaly noted. No visible injury noted. Back: No CVA tenderness. Full range of motion noted. Skin: Skin warm and dry. Normal skin color. Normal skin turgor. No rashes/lesions/lacerations noted. Extremities: No lower extremity edema. Extremities exhibit normal range of motion. Extremities nontender. Neuro: Oriented X 3. No motor deficit. No sensory deficit. Reflexes normal. Course Course Course Narrative: Assessment and plan. 65-year-old female with a history of kidney stones, patient just had lithotripsy done 3 days ago. Patient came in with a fever and not feeling well overall. 1. Leukocytosis could be secondary to stress reaction after the surgery, no source of infection found today. 2. Hypokalemia that was repleted by p.o. potassium. The case discussed with Dr. Cuevas who is okay to discharge the patient home and follow up with his office next week patient was instructed to continue with Keflex as prescribed 3 times a day for the next 7 days, and drink plenty of fluids. Patient overall feels better with good appetite. MDM - Fever Lab Data Attestation: I reviewed the patient's lab results. Result diagrams: 12/05/20 16:14 12/05/20 16:14 Labs: Lab Results 12/05/20 12/05/20 12/05/20 Range/Units 16:14 16:14 16:14 WBC 19.6 H (4.8-10.8) X10*3/uL RBC 4.20 (4.20-5.50) X10*6/uL Hgb 13.1 (12.0-16.0) g/dl Hct 38.7 (37-47) % MCV 92.1 (80-98) fL MCH 31.2 (27.0-33.0) pg MCHC 33.9 (31.0-35.0) g/dl RDW 13.0 (11.0-16.0) % Plt Count 155 L (160-400) X10*3/uL MPV 10.8 (9.4-12.3) fL Immature Gran % (Auto) 0.6 H (0.0-0.4) % Neut % (Auto) 86.9 H (45-73) % Lymph % (Auto) 5.3 L (20-40) % Pope % (Auto) 7.0 (2-11) % Eos % (Auto) 0.1 (0-4) % Baso % (Auto) 0.1 (0-2) % Lymph # (Auto) 1.0 L (1.2-4.9) X10*3/uL Pope # (Auto) 1.4 H (0.1-1.2) X10*3/uL Eos # (Auto) 0.0 (0.0-0.4) X10*3/uL Baso # (Auto) 0.0 (0.0-0.2) X10*3/uL Abs Immat Gran (auto) 0.11 H (0.00-0.03) X10*3/uL Absolute Neuts (auto) 17.0 H (2.0-8.3) X10*3/uL Absolute Nucleated RBC 0.000 (0.0-0.012) X10*3/uL Nucleated RBC % (auto) 0.0 (0.0-0.2) /100WBC Hold Blue Top Sodium 131 L (135-145) mmol/L Potassium 2.9 L (3.3-5.1) mmol/L Chloride 94 L (96-108) mmol/L Carbon Dioxide 26 (22-29) mmol/L Anion Gap 14 (12-20) BUN 22 H (9-16) mg/dL Creatinine 1.32 (0.5-1.4) mg/dL Estim Creat Clear Calc 43.6 Estimated GFR 40 Random Glucose 123 H (60-115) mg/dL Lactic Acid 0.9 (0.5-2.0) mmol/L Calcium 9.0 (8.4-10.2) mg/dL Total Bilirubin 0.8 (0.0-1.0) mg/dL Direct Bilirubin 0.3 (0.0-0.5) mg/dL AST 31 (5-31) U/L ALT 19 (0-31) U/L Alkaline Phosphatase 64 (39-117) U/L Total Protein 6.8 (6.5-8.0) g/dL Albumin 4.3 (3.5-5.0) g/dL Lipase 60 (8-78) U/L Urine Color Urine Appearance Urine pH (5.0-8.0) Ur Specific [place] (1.005-1.025) Urine Protein (NEG-TRACE) MG/DL Urine Glucose (UA) (NEG) MG/DL Urine Ketones (NEG) MG/DL Urine Blood (NEG) Urine Nitrite (NEG) Ur Leukocyte Esterase (NEG) Urine RBC (0) /HPF Urine WBC (0-4) /HPF Ur Squamous Epith Cells /LPF Urine Bacteria /LPF COVID-19 (RICHARD) (Negative) COVID-19 Clin Com 12/05/20 12/05/20 12/05/20 Range/Units 16:14 16:14 17:40 WBC (4.8-10.8) X10*3/uL RBC (4.20-5.50) X10*6/uL Hgb (12.0-16.0) g/dl Hct (37-47) % MCV (80-98) fL MCH (27.0-33.0) pg MCHC (31.0-35.0) g/dl RDW (11.0-16.0) % Plt Count (160-400) X10*3/uL MPV (9.4-12.3) fL Immature Gran % (Auto) (0.0-0.4) % Neut % (Auto) (45-73) % Lymph % (Auto) (20-40) % Pope % (Auto) (2-11) % Eos % (Auto) (0-4) % Baso % (Auto) (0-2) % Lymph # (Auto) (1.2-4.9) X10*3/uL Pope # (Auto) (0.1-1.2) X10*3/uL Eos # (Auto) (0.0-0.4) X10*3/uL Baso # (Auto) (0.0-0.2) X10*3/uL Abs Immat Gran (auto) (0.00-0.03) X10*3/uL Absolute Neuts (auto) (2.0-8.3) X10*3/uL Absolute Nucleated RBC (0.0-0.012) X10*3/uL Nucleated RBC % (auto) (0.0-0.2) /100WBC Hold Blue Top SEE NOTE Sodium (135-145) mmol/L Potassium (3.3-5.1) mmol/L Chloride (96-108) mmol/L Carbon Dioxide (22-29) mmol/L Anion Gap (12-20) BUN (9-16) mg/dL Creatinine (0.5-1.4) mg/dL Estim Creat Clear Calc Estimated GFR Random Glucose (60-115) mg/dL Lactic Acid (0.5-2.0) mmol/L Calcium (8.4-10.2) mg/dL Total Bilirubin (0.0-1.0) mg/dL Direct Bilirubin (0.0-0.5) mg/dL AST (5-31) U/L ALT (0-31) U/L Alkaline Phosphatase (39-117) U/L Total Protein (6.5-8.0) g/dL Albumin (3.5-5.0) g/dL Lipase (8-78) U/L Urine Color YELLOW Urine Appearance HAZY Urine pH 6.5 (5.0-8.0) Ur Specific [place] 1.010 (1.005-1.025) Urine Protein 1+ H (NEG-TRACE) MG/DL Urine Glucose (UA) NEG (NEG) MG/DL Urine Ketones NEG (NEG) MG/DL Urine Blood 3+ H (NEG) Urine Nitrite NEG (NEG) Ur Leukocyte Esterase NEG (NEG) Urine RBC 76-150 H (0) /HPF Urine WBC 1-4 (0-4) /HPF Ur Squamous Epith Cells TRACE /LPF Urine Bacteria TRACE /LPF COVID-19 (RICHARD) Negative (Negative) COVID-19 Clin Com See Note Imaging Data US - abdomen: Radiologist's impression: Multiple renal stones with no evidence of ureteric obstruction. Discharge Plan Discharge Clinical Impression: Renal stones, Leukocytosis, Acute hypokalemia Patient Disposition: Home, Self-Care Instructions: Kidney Stones (ED) Prescriptions: No Action prochlorperazine maleate 10 mg tablet 10 mg PO TID PRN (Reason: nausea and vomiting) 30 Days Qty: 90 RF: 6 cephalexin 500 mg capsule 500 mg PO TID 5 Days Qty: 15 RF: 0 pravastatin 40 mg tablet 1 tab PO DAILY RF: 0 chlorthalidone 25 mg tablet 1 tab PO DAILY RF: 0 levothyroxine 25 mcg tablet 25 mcg PO DAILY RF: 0 potassium citrate 10 mEq (1,080 mg) tablet extended release 1 tab PO TID RF: 0 gabapentin 100 mg capsule 1 cap PO TID RF: 0 cyclobenzaprine 5 mg tablet 1 tab PO TID RF: 0 tramadol 50 mg tablet 50 mg PO Q6H PRN (Reason: pain (scale score 1-3)) Qty: 14 RF: 0 tamsulosin 0.4 mg capsule 0.4 mg PO BEDTIME Qty: 14 RF: 0 pyridoxine (vitamin B6) [Vitamin B-6] 100 mg tablet 100 mg PO DAILY 90 Days Qty: 90 RF: 0 Tylenol 500 RF: 0 tamsulosin 0.4 mg capsule 0.4 mg PO BEDTIME Qty: 30 RF: 0 allopurinol 100 mg tablet 100 mg PO DAILY 90 Days Qty: 90 RF: 1 Referrals: Beau Cuevas MD [Physician] - 2 days Physician,Unknown [Primary Care Provider] - 2 days
[2020-12-05 16:48] VITALS: BP 103/64; PULSE 91; RESP 18; TEMP 37.4; O2SAT 94
[2020-12-05 16:48] LABS: Anion Gap 14 (12-20); Blood Urea Nitrogen 22 mg/dL (9-16); Carbon Dioxide 26 mmol/L (22-29); Chloride 94 mmol/L (96-108); Creatinine Clr Calc Pharmacy 43.6; Estimated Glomerular Filt Rate 40; Glucose Random 123 mg/dL (60-115); Potassium 2.9 mmol/L (3.3-5.1); Sodium 131 mmol/L (135-145)
[2020-12-05 17:11] LABS: COVID-19 Test Negative (Negative); IDNOW Serial# 9DD0AD1C
[2020-12-05 17:17] LABS: Alanine Aminotransferase 19 U/L (0-31); Albumin Level 4.3 g/dL (3.5-5.0); Alkaline Phosphatase 64 U/L (39-117); Aspartate Amino Transferase 31 U/L (5-31); Bilirubin Direct 0.3 mg/dL (0.0-0.5); Bilirubin Total 0.8 mg/dL (0.0-1.0); Lipase 60 U/L (8-78); Total Protein 6.8 g/dL (6.5-8.0)
[2020-12-05] MEDS: cefTRIAXone sodium 1 GM in 0.9 % Sodium Chloride 50 ML IV (17:34)
[2020-12-05] MEDS: 0.9 % Sodium Chloride 1,000 ML 999 ML IVCONT (18:16)
[2020-12-05 18:23] LABS: Glucose Urine UA NEG (NEG); Leukocyte Esterase Urine NEG (NEG); Nitrite Urine NEG (NEG); PH 6.5 (5.0-8.0); Urine Blood 3+ (NEG); Urine Ketones NEG (NEG); Urine Protein 1+ MG/DL (NEG-TRACE)
[2020-12-05 18:27] LABS: Appearance Urine HAZY; Color Urine YELLOW
[2020-12-05 18:35] VITALS: BP 98/59; PULSE 75; RESP 18; TEMP 36.8; O2SAT 95
[2020-12-05 18:38] LABS: Bacteria Urine TRACE /LPF; Squamous Epithelial Cell Urine TRACE /LPF
[2020-12-05 21:09] VITALS: BP 119/75; PULSE 74; RESP 16; TEMP 36.6; O2SAT 98
[2020-12-05] MEDS: Potassium Chloride Packet 20 MEQ PACKET 40 MEQ PO (23:06)
== END 2020-12-05 23:10 | disposition home or self-care (01) ==
PROVIDERS: Emergency Provider Emergency Medicine
DX: N20.0 Calculus of kidney (principal); D72.829 Elevated white blood cell count, unspecified; E87.6 Hypokalemia; R50.9 Fever, unspecified; Z20.822 Contact with and (suspected) exposure to COVID-19; Z98.890 Other specified postprocedural states; Z87.442 Personal history of urinary calculi; Z85.41 Personal history of malignant neoplasm of cervix uteri
CPT/HCPCS: 36415; 71045; 76775; 80048; 80076; 81001; 83605; 83690; 85025; 87040; 87635; 96361; 96365; 99284; J0696

== ENCOUNTER → 2020-12-11 10:53 | Outpatient (BNVA) | payer MEDICARE, OTHER, SELFPAY | PROVIDERS: Visit Provider Urology | DX: Q61.5 Medullary cystic kidney (principal); N20.0 Calculus of kidney; Z87.442 Personal history of urinary calculi | CPT/HCPCS: 99212 ==

== ENCOUNTER 2020-12-27 16:07 | Outpatient (REF) | payer MEDICARE, OTHER, SELFPAY ==
[2021-01-03 17:31] LABS: URO-Brushite 24 Hr Urine 1.91 (<2.00); URO-Calcium 24 Hr Urine 156 mg/day (<250.0); URO-Calcium Oxalat 24 Hr Urine 0.54 (<2.00); URO-Citric Acid 24 Hr Urine 352 mg/day (>320); URO-Creatinine 24 Hr Urine 829 mg/day (600-1800); URO-Magnesium 24 Hr Urine 88 mg/day (>60.0); URO-Oxalate 24 Hr Urine 18 mg/day (<45); URO-Phosphorus 24 Hr Urine 773 mg/day (<1100); URO-Potassium 24 Hr Urine 100 mEq/day (19-135); URO-Sodium 24 Hr Urine 108 mEq/day (<200); URO-Sodium Urate 24 Hr Urine 0.62 (<2.00); URO-Sulfate 24 Hr Urine 7 mmol/day (<30); URO-Total Volume 2.73 L/day (>2.00); URO-Uric Acid 24 Hr Urine 0.09 (<2.00); URO-Uric Acid 24 Hr Urine 459 mg/day (<700)
== END 2020-12-27 16:08 | disposition home or self-care (01) ==
LOC: HO.LNP 16:07
PROVIDERS: Visit Provider Urology
DX: N20.0 Calculus of kidney (principal); Q61.5 Medullary cystic kidney
CPT/HCPCS: 82340; 82507; 82570; 83735; 83945; 83986; 84105; 84133; 84300; 84392; 84560

== ENCOUNTER 2021-03-27 08:01 | Outpatient (REF) | payer MEDICARE, OTHER, SELFPAY ==
--- NOTE | ~2021-03-27 | US_ITS ---
EXAMINATION: US RETROPERITONEAL LIMITED (RENAL ONLY) CLINICAL INFORMATION: Calculus of kidney. COMPARISON: Renal ultrasound 12/05/2020, KUB 10/30/2020, CT abdomen and pelvis noncontrast 02/22/2019. TECHNIQUE: Real-time imaging of the kidneys. FINDINGS: RIGHT KIDNEY: 11.2 x 4.5 x 5.8 cm (SAG x AP x TRV). No hydronephrosis or caliectasis. Normal renal parenchymal thickness and echogenicity. There are hyperechoic specular echoes in the medullary portion of the kidneys, similar to prior imaging. LEFT KIDNEY: 11.2 x 3.6 x 4.6 cm (SAG x AP x TRV). No hydronephrosis or caliectasis. Normal renal parenchymal thickness and echogenicity. There are hyperechoic specular echoes in the medullary portion of the kidneys, similar to prior imaging. US/US renal BI IMPRESSION: 1. No hydronephrosis or caliectasis. 2. Bilateral medullary nephrolithiasis similar to prior imaging.
== END 2021-03-27 08:02 | disposition home or self-care (01) ==
LOC: HO.US 08:01
PROVIDERS: PCP Internal Medicine; Visit Provider Urology
DX: Q61.5 Medullary cystic kidney (principal); N20.0 Calculus of kidney
CPT/HCPCS: 76775

== ENCOUNTER → 2021-04-16 15:41 | Outpatient (BNVA) | payer MEDICARE, OTHER, SELFPAY | PROVIDERS: Visit Provider Urology | DX: Q61.5 Medullary cystic kidney (principal) | CPT/HCPCS: Q3014 ==

== ENCOUNTER 2021-06-23 15:23 | Day surgery (SDC) | payer MEDICARE, OTHER, SELFPAY ==
[2021-06-23] VITALS (8 sets, daily range): BP systolic 124–163; BP diastolic 77–92; PULSE 66–70; RESP 12–17; TEMP 36.3–36.9; O2SAT 97–100; BMI 30.9; BMI 31.0
--- NOTE | ~2021-06-23 | FL_ITS ---
EXAMINATION: XR FLUOROSCOPY WITH IMAGES CLINICAL INFORMATION: Right kidney stone. COMPARISON: Ultrasound of 03/27/2021. TECHNIQUE: Fluoroscopy performed by Dr. Beau Cuevas. Fluoroscopy time: 51.1 seconds Dose: 18.72 mGy Images: 2 FINDINGS: 2 C-arm images performed one showing opacification of a nondilated upper collecting system and the second showing distal portion of a pigtail stent. FL/FL guidance in OR IMPRESSION: Intraoperative C-arm views as described.
--- NOTE | 2021-06-23 15:33 | P.CONAN_ITS ---
[facility] [place] Active Problems Active Problems: All Active Problems (Updated 12/06/20 @ 00:01 by Fernanda Mo) Medullary sponge kidney (Acute) Renal stones (Acute) Past Medical History Medical History Arthritis Back pain Cervical cancer Elevated cholesterol Herniated disc, cervical History of colitis Renal stones Sleep apnea Thyroid disease Surgical History Surgical History H/O colonoscopy History of Hx of cystoscopy Hx of lithotripsy Hx of tonsillectomy Hx of total knee arthroplasty History of Problems with Anesthesia: Yes (PONV) Social History Social History Alcohol intake: never Advance Directives: No Advance Directives Information Provided: Yes Meds Allergies Allergy/AdvReac Type Severity Reaction Status Date / Time celecoxib [From CELEBREX] Allergy Intermediate HIVES Verified 04/16/21 15:41 ciprofloxacin [From CIPRO] Allergy Intermediate HIVES Verified 04/16/21 15:41 clindamycin [CLINDAMYCIN] Allergy Intermediate C-DIF Verified 04/16/21 15:41 hydrochlorothiazide Allergy Intermediate HIVES Verified 04/16/21 15:41 [HYDROCHLOROTHIAZIDE] levofloxacin [From LEVAQUIN] Allergy Intermediate HIVES Verified 04/16/21 15:41 Penicillins [PENICILLINS] Allergy Intermediate HIVES Verified 04/16/21 15:41 Sulfa (Sulfonamide Allergy Intermediate HIVES Verified 04/16/21 15:41 Antibiotics) [SULFA (SULFONAMIDE ANTIBIOTICS)] phenazopyridine [Pyridium] Allergy Mild Rash Verified 04/16/21 15:41 From TORADOL Allergy Intermediate ? LETHARGY Uncoded 12/02/20 11:29 Home Medications Medication Instructions Recorded Confirmed Last Taken Type chlorthalidone 25 mg tablet 1 tab PO DAILY 09/26/20 10/24/20 Unknown History cyclobenzaprine 5 mg tablet 1 tab PO TID 09/26/20 10/24/20 Unknown History gabapentin 100 mg capsule 1 cap PO TID 09/26/20 10/24/20 Unknown History levothyroxine 25 mcg tablet 25 mcg PO DAILY 09/26/20 10/24/20 10/30/20 History potassium citrate 10 mEq (1,080 1 tab PO TID 09/26/20 10/24/20 Unknown History mg) tablet,extended release pravastatin 40 mg tablet 1 tab PO DAILY 09/26/20 10/24/20 Unknown History Tylenol 500 10/30/20 10/30/20 History methylprednisolone 4 mg tablets in mg PO 11/21/20 Unknown History a dose pack Exam Exam Date and Time: June 23, 2021 1533 Airway Mallampati Class: II TM Dist: >3cm Neck ROM: Full Loose/Missing/Broken Teeth: No Heart: RRR Lungs: CTA Assessment and Plan Assessment Anesthesia Assessment: Anesthesia Plan Discussed and Chart Reviewed Final Anesthetic Review History of Problems with Anesthesia: Yes (PONV) NPO: Yes ASA Class: II Final Preanesthetic Review: Meds/Allgs Chart Reviewed, Consent Obtained/Reviewed and Anes Risks/Benef Reviewed Patient Risk: Low Procedure Risk: Low Anesthetic Plan Anesthetic Plan: GA Disposition: Standard PACU
--- NOTE | 2021-06-23 16:05 | MHC.SHP ---
Pre-Procedural Eval Section A Date of Service: 06/23/21 Section B Chief Complaint: kidney stone Details of Present Illness: Persistent left flank pain over the weekend. Known Medullary sponge kidney former. Prior procedure on right side with clean out. Given persistent pain on left side she wanted to proceed with intervention. She has undergone multiple prior ureteroscopy in understands the risks, benefits and alternatives therapy. Relevant Social History: None Present Medications: see Short Stay Collaborative assessment Medical History: Significant History History of Previous Operations: Relevant previous surgery/procedure and date(s) Allergies: Allergies Allergy/AdvReac Type Severity Reaction Status Date / Time celecoxib [From CELEBREX] Allergy Intermediate HIVES Verified 04/16/21 15:41 ciprofloxacin [From CIPRO] Allergy Intermediate HIVES Verified 04/16/21 15:41 clindamycin [CLINDAMYCIN] Allergy Intermediate C-DIF Verified 04/16/21 15:41 hydrochlorothiazide Allergy Intermediate HIVES Verified 04/16/21 15:41 [HYDROCHLOROTHIAZIDE] levofloxacin [From LEVAQUIN] Allergy Intermediate HIVES Verified 04/16/21 15:41 Penicillins [PENICILLINS] Allergy Intermediate HIVES Verified 04/16/21 15:41 Sulfa (Sulfonamide Allergy Intermediate HIVES Verified 04/16/21 15:41 Antibiotics) [SULFA (SULFONAMIDE ANTIBIOTICS)] phenazopyridine [Pyridium] Allergy Mild Rash Verified 04/16/21 15:41 From TORADOL Allergy Intermediate ? LETHARGY Uncoded 12/02/20 11:29 Review of Systems Sugical H&P ROS: Negative: Constitution, Cardiovascular, Respiratory, Neurological, Psychiatric, Hem-Onc, Allergic/Immunologic, Gastrointestinal, Genitourinary, Musculoskeletal, Integumentary, Endocrine and Eyes/Ears/Nose/Throat Exam Surgical H&P Exam: Normal: HEENT, Normal: Heart, Normal: Lungs, Normal: Extremities, Normal: Abdomen, Normal: Skin and Normal: Neurological Plan Diagnosis/Plan: Unchanged (Cystoscopy, left retrograde left ureteroscopy, laser lithotripsy, stent placement stone basket) I have reviewed the history and physical and performed a pertinent physical examination on my patient. No changes have occurred unless specified.
--- NOTE | 2021-06-23 17:05 | P.OP_ITS ---
Operative Note Operative Note Date of Service: 06/23/21 Narrative: PreOperative Diagnosis: Left renal stones Medullary sponge kidney Post Operative Diagnosis: Left renal stones, Medullary sponge kidney Procedure: - cystoscopy, leftretrograde - left dilatation of ureteric orifice under fluoroscopy - flexible ureteroscopy, laser lithotripsy of multiple calices with multiple submucosal stones - left stent placement Surgeon: Dr Beau Cuevas Anesthesia: General Indications for procedure: Juve is a well-known Medullary sponge kidney stone former. Previous procedure on right side with laser of submucosal stones. She had called with pain on Wednesday and this was persistent again today. Recommend for intervention given the inconsistency that imaging provides regarding her current stone status. She has undergone ureteroscopy many times in the past. Procedure: After informed consent was verified patient was brought to the operating placed in supine position. Anesthesia was administered per protocol. Patient was placed in modified dorsal lithotomy position and prepped and draped in a sterile fashion. Safety pause time-out and side of surgery confirmed. Antibiotics confirmed. Twenty-two Wallisian cystoscope inserted per urethra. 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 Left ureteric orifice cannulated and retrograde examination was performed. No clear filling defects seen. Sensor wire placed to the level renal pelvis. Shmuel dilator used to dilate ureter. Flexible digital ureteroscopy performed over the wire up into the left renal pelvis. Every single calyx had submucosal stones in the order of 2-3 mm. Many of these were broken with the laser. Stones found in 3 of the for calices there were examined. Everyone had minimum 3 submucosal stones up to 6 submucosal stones per calyceal. There were many small stone fragments floating around the kidney by the time of completion. At completion sensor guidewire was placed through the flexible ureteral scope. The scope was removed. A 6 Wallisian by 24 cm double-J stent was placed under combination direct and fluoroscopic visualization. Good coil seen in the bladder and in the renal pelvis. The bladder was emptied of fluid. Juve tolerated the procedure well was extubated in operating room transferred in stable condition to the recovery area. Pathology: Stones Drains: 6 Wallisian by 24 cm double-J stent
[2021-06-23] MEDS: Acetaminophen 325 MG TABLET 650 MG PO (17:45)
[2021-06-23] MEDS: Prochlorperazine Edisylate 10 MG/2 ML VIAL IVPUSH (17:53)
== END 2021-06-23 18:22 | disposition home or self-care (01) ==
PROVIDERS: PCP Internal Medicine; Visit Provider Urology
PROC: (CPT 52356; principal; 2021-06-23 16:50)
DX: N20.0 Calculus of kidney (principal); Z87.442 Personal history of urinary calculi; Q61.5 Medullary cystic kidney; G47.33 Obstructive sleep apnea (adult) (pediatric); Z85.41 Personal history of malignant neoplasm of cervix uteri; Z88.0 Allergy status to penicillin; Z88.1 Allergy status to other antibiotic agents; Z88.2 Allergy status to sulfonamides; Z88.8 Allergy status to other drugs, medicaments and biological substances; E03.9 Hypothyroidism, unspecified
CPT/HCPCS: 52356; C1769; C2617; J0690; J1100; J2250; J3010; Q9967

== ENCOUNTER → 2021-07-01 12:59 | Outpatient (BNVA) | payer MEDICARE, OTHER, SELFPAY | PROVIDERS: PCP Internal Medicine; Visit Provider Urology | DX: Q61.5 Medullary cystic kidney (principal) | CPT/HCPCS: 52310; 99212 ==

== ENCOUNTER 2021-11-11 13:27 | Outpatient (REF) | payer MEDICARE, OTHER, SELFPAY ==
--- NOTE | ~2021-11-11 | US_ITS ---
EXAMINATION: US RETROPERITONEAL LIMITED (RENAL ONLY) CLINICAL INFORMATION: Medullary cystic kidney. Recent lithotripsy right kidney November 2020 and left kidney April 2021. COMPARISON: Ultrasound renal 03/27/2021 and 12/05/2020. XR KUB 10/30/2020 and 10/02/2020. TECHNIQUE: Real-time imaging of the kidneys. FINDINGS: RIGHT KIDNEY: 10.5 x 4.8 x 3.9 cm (SAG x AP x TRV). The kidney is normal in size, contour, and echogenicity. Renal cortical thickness is normal. No focal parenchymal lesions or hydronephrosis. There are multiple nonobstructive echogenic calculi. The largest calculi in upper pole measures 0.71 x 0.31 x 0.40 cm. LEFT KIDNEY: 11.7 x 3.9 x 4.2 cm (SAG x AP x TRV). The kidney is normal in size, contour, and echogenicity. Renal cortical thickness is normal. No focal parenchymal lesions or hydronephrosis. There are multiple echogenic calculi visualized. The largest calculi in upper pole measures 0.8 x 0.59 x 0.67 cm in the lower pole. US/US renal BI IMPRESSION: Bilateral nonobstructive echogenic small renal calculi. No caliectasis or hydronephrosis.
== END 2021-11-11 13:28 | disposition home or self-care (01) ==
LOC: HO.US 13:27
PROVIDERS: Visit Provider Urology
DX: Q61.5 Medullary cystic kidney (principal)
CPT/HCPCS: 76775

== ENCOUNTER → 2021-11-26 10:52 | Outpatient (BNVA) | payer MEDICARE, OTHER, SELFPAY | PROVIDERS: PCP Internal Medicine; Visit Provider Urology | DX: Q61.5 Medullary cystic kidney (principal); N20.0 Calculus of kidney | CPT/HCPCS: 99212 ==

== ENCOUNTER → 2022-01-06 08:36 | Outpatient (BNVA) | payer MEDICARE, OTHER, SELFPAY | PROVIDERS: PCP Internal Medicine; Visit Provider Urology | DX: Q61.5 Medullary cystic kidney (principal); N20.0 Calculus of kidney | CPT/HCPCS: Q3014 ==

== ENCOUNTER 2022-01-12 11:53 | Day surgery (SDC) | payer MEDICARE, OTHER, SELFPAY ==
--- NOTE | 2022-01-09 10:35 | P.CONAN_ITS ---
Documented by User: Alma Rosa Nicholson NP 01/09/22 10:37 HPI - Anesthesia Eval Consult details Narrative: 66yo F for Left Cystoscopy, Ureteroroscopy, Retro, Laser, possible stent s/p same 05/2021 with GA-LMA 4 (multiple uro procedures in past) *Mutliple Med Allergies* PMFSH Active Problems Active Problems: All Active Problems (Updated 01/06/22 @ 15:16 by Silvana Hennessy, RN) Renal stones (Acute) Medullary sponge kidney (Acute) Past Medical History Medical History (Updated 01/06/22 @ 15:16 by Silvana Hennessy, RN) Arthritis Back pain Cervical cancer Elevated cholesterol Herniated disc, cervical History of colitis PONV (postoperative nausea and vomiting) Renal stones Sleep apnea Thyroid disease Surgical History Surgical History (Updated 01/06/22 @ 15:20 by Silvana Hennessy, JAMIE) H/O colonoscopy History of Hx of cystoscopy Hx of lithotripsy Hx of tonsillectomy Hx of total knee arthroplasty History of Problems with Anesthesia: Yes (PONV) Social History Social History Alcohol intake: never Patient Tobacco Use Status: Never used Tobacco Are you DNR?: No Advance Directives: No Advance Directives Information Provided: Yes Meds Allergies Allergy/AdvReac Type Severity Reaction Status Date / Time celecoxib [From CELEBREX] Allergy Intermediate HIVES Verified 01/06/22 08:38 ciprofloxacin [From CIPRO] Allergy Intermediate HIVES Verified 01/06/22 08:38 clindamycin [CLINDAMYCIN] Allergy Intermediate C-DIF Verified 01/06/22 08:38 hydrochlorothiazide Allergy Intermediate HIVES Verified 01/06/22 08:38 [HYDROCHLOROTHIAZIDE] levofloxacin [From LEVAQUIN] Allergy Intermediate HIVES Verified 01/06/22 08:38 Penicillins [PENICILLINS] Allergy Intermediate HIVES Verified 01/06/22 08:38 Sulfa (Sulfonamide Allergy Intermediate HIVES Verified 01/06/22 08:38 Antibiotics) [SULFA (SULFONAMIDE ANTIBIOTICS)] phenazopyridine [Pyridium] Allergy Mild Rash Verified 01/06/22 08:38 From TORADOL Allergy Intermediate ? LETHARGY Uncoded 01/06/22 08:38 Home Medications Medication Instructions Recorded Confirmed Last Taken Type chlorthalidone 25 mg tablet 1 tab PO DAILY 09/26/20 01/06/22 06/23/21 09:30 History levothyroxine 25 mcg tablet 25 mcg PO DAILY 09/26/20 01/06/22 01/12/22 History potassium citrate 10 mEq (1,080 1 tab PO TID 09/26/20 01/06/22 06/23/21 09:30 History mg) tablet,extended release pravastatin 40 mg tablet 1 tab PO DAILY 09/26/20 01/06/22 Unknown History acetaminophen 500 mg tablet 1,000 mg PO Q6H PRN 01/06/22 01/06/22 01/12/22 History Exam Exam Date and Time: January 09, 2022 1035 Assessment and Plan Assessment Anesthesia Assessment: Chart Reviewed Final Anesthetic Review History of Problems with Anesthesia: Yes (PONV) Documented by User: Reuben Still MD 01/12/22 16:47 HPI - Anesthesia Eval Consult details Narrative: 66yo F for Left Cystoscopy, Ureteroroscopy, Retro, Laser, possible stent s/p same 05/2021 with GA-LMA 4 (multiple uro procedures in past) *Mutliple Med Allergies* cervical vertebrae herniation s/p fusion , some left sided residual weakness . [facility] Past Medical History Medical History (Updated 01/06/22 @ 15:16 by Silvana Hennessy, JAMIE) Arthritis Back pain Cervical cancer Elevated cholesterol Herniated disc, cervical History of colitis PONV (postoperative nausea and vomiting) Renal stones Sleep apnea Thyroid disease Family History Family history of problems with anesthesia: No Surgical History Surgical History (Updated 01/06/22 @ 15:20 by Silvana Hennessy, JAMIE) H/O colonoscopy History of Hx of cystoscopy Hx of lithotripsy Hx of tonsillectomy Hx of total knee arthroplasty Social History Social History Alcohol intake: never Patient Tobacco Use Status: Never used Tobacco Are you DNR?: No Advance Directives: No Advance Directives Information Provided: Yes Meds Allergies Allergy/AdvReac Type Severity Reaction Status Date / Time celecoxib [From CELEBREX] Allergy Intermediate HIVES Verified 01/06/22 08:38 ciprofloxacin [From CIPRO] Allergy Intermediate HIVES Verified 01/06/22 08:38 clindamycin [CLINDAMYCIN] Allergy Intermediate C-DIF Verified 01/06/22 08:38 hydrochlorothiazide Allergy Intermediate HIVES Verified 01/06/22 08:38 [HYDROCHLOROTHIAZIDE] levofloxacin [From LEVAQUIN] Allergy Intermediate HIVES Verified 01/06/22 08:38 Penicillins [PENICILLINS] Allergy Intermediate HIVES Verified 01/06/22 08:38 Sulfa (Sulfonamide Allergy Intermediate HIVES Verified 01/06/22 08:38 Antibiotics) [SULFA (SULFONAMIDE ANTIBIOTICS)] phenazopyridine [Pyridium] Allergy Mild Rash Verified 01/06/22 08:38 From TORADOL Allergy Intermediate ? LETHARGY Uncoded 01/06/22 08:38 Home Medications Medication Instructions Recorded Confirmed Last Taken Type chlorthalidone 25 mg tablet 1 tab PO DAILY 09/26/20 01/06/22 06/23/21 09:30 History levothyroxine 25 mcg tablet 25 mcg PO DAILY 09/26/20 01/06/22 01/12/22 History potassium citrate 10 mEq (1,080 1 tab PO TID 09/26/20 01/06/22 06/23/21 09:30 History mg) tablet,extended release pravastatin 40 mg tablet 1 tab PO DAILY 09/26/20 01/06/22 Unknown History acetaminophen 500 mg tablet 1,000 mg PO Q6H PRN 01/06/22 01/06/22 01/12/22 History Exam Airway Mallampati Class: IV TM Dist: >3cm Neck ROM: Limited Loose/Missing/Broken Teeth: Yes (Chipped) Heart: S1 S2 Lungs: b/l breath sounds Assessment and Plan Assessment Anesthesia Assessment: Anesthesia Plan Discussed Final Anesthetic Review Family History of Problems with Anesthesia: No NPO: Yes ASA Class: III Final Preanesthetic Review: Meds/Allgs Chart Reviewed, Consent Obtained/Reviewed and Anes Risks/Benef Reviewed Patient Risk: Intermediate Procedure Risk: Intermediate Anesthetic Plan Anesthetic Plan: GA Disposition: Standard PACU
[2022-01-12] VITALS (11 sets, daily range): BP systolic 121–144; BP diastolic 62–77; PULSE 57–72; RESP 14–18; TEMP 36.3–36.6; O2SAT 93–99; BMI 29.9
--- NOTE | ~2022-01-12 | FL_ITS ---
EXAMINATION: SINGLE C-ARM VIEW CLINICAL INFORMATION: Kidney stone COMPARISON: November 11, 2021 TECHNIQUE: Fluoroscopy performed by Dr. Cuevas. Fluoroscopy time: 43.6 seconds DLP: 14.87 mGy Images: 1 FINDINGS: Single C-arm view demonstrates a left ureteral stent distal aspect overlying the pelvis. FL/FL guidance in OR IMPRESSION: Intraoperative C-arm view demonstrating ureteral stent overlying the pelvis.
[2022-01-12 12:22] LABS: Hematocrit 39.4 % (37.0-47.0); Hemoglobin 12.9 g/dl (12.0-16.0); Mean Corpuscular HGB Conc 32.7 g/dl (31.0-35.0); Mean Corpuscular Hemoglobin 31.1 pg (27.0-33.0); Mean Corpuscular Volume 94.9 fL (80.0-98.0); Mean Platelet Volume 11.1 fL (9.4-12.3); Platelet Count 193 X10*3/uL (160-400); Red Blood Count 4.15 X10*6/uL (4.20-5.50); White Blood Count 5.9 X10*3/uL (4.8-10.8)
[2022-01-12 12:35] LABS: Anion Gap 11 (12-20); Blood Urea Nitrogen 18 mg/dL (9-16); Calcium 9.5 mg/dL (8.4-10.2); Carbon Dioxide 29 mmol/L (22-29); Chloride 104 mmol/L (96-108); Creatinine Clr Calc Pharmacy 53.6; Estimated Glomerular Filt Rate 52; Glucose Fasting 98 mg/dL (60-99); Potassium 3.9 mmol/L (3.3-5.1); Sodium 140 mmol/L (135-145)
[2022-01-12] MEDS: Lactated Ringers 1,000 ML 100 ML IVCONT (12:35)
[2022-01-12] MEDS: Acetaminophen 325 MG TABLET 650 MG PO (14:34)
--- NOTE | 2022-01-12 16:53 | W.PM.OPN ---
Operative Note Operative Note Date of Service: 01/12/22 Narrative: PreOperative Diagnosis: pain on left side with known Medullary sponge kidney and stones Post Operative Diagnosis: Medullary sponge kidney with stones submucosal Procedure: - cystoscopy, left retrograde - left dilatation of ureteric orifice under fluoroscopy - left ureteroscopy, laser lithotripsy - left stent placement Surgeon: Dr Beau Cuevas Anesthesia: General Indications for procedure: known Medullary sponge kidney. Recurrent stone former. Left flank increase in baseline discomfort. Concern regarding recurrence stones. Imaging always shows multiple 7 mm clusters. Plan for ureteroscopy with laser lithotripsy for verification. Procedure: After informed consent was verified patient was brought to the operating placed in supine position. Anesthesia was administered per protocol. Patient was placed in modified dorsal lithotomy position and prepped and draped in a sterile fashion. Safety pause time-out and side of surgery confirmed. Antibiotics confirmed. 22 Bulgarian cystoscope was inserted per urethra. Bladder was normal in its entirety. Both ureteric orifices were in normal position. The Left ureteric orifice was cannulated and a retrograde examination was performed. no filling defects seen . A Glidewire was placed up to the level of the renal pelvis under fluoroscopy. The rigid cystoscope was removed and the inner cannula of ureteric access sheath was used under fluoroscopy to dilate the ureteric orifice. The ureteric access sheath was placed and the inner cannula with access wire removed. The digital flexible ureteral scope was placed. the renal pelvis and all associated calices were examined in detail. Submucosal stones lay within all calices. There were a glomerulations throughout the kidney. Using a 270 micron laser fiber areas of submucosal stone was lasered to release in free stone debris. This occurred and all calices. When complete there were many small stones floating within the kidney. A decision was made for stent placement. A 6 Bulgarian by 24 cm double-J stent was placed into the renal pelvis and bladder under a combination of fluoroscopy and direct visualization. The bladder was emptied. The patient tolerated the procedure well and was extubated in the operating room, and transferred in stable condition to the recovery area. Pathology: no stones Drains: 6 Bulgarian by 24 cm double-J stent
== END 2022-01-12 19:09 | disposition home or self-care (01) ==
PROVIDERS: Nurse Practitioner; PCP Internal Medicine; Visit Provider Urology
PROC: (CPT 52356; principal; 2022-01-12 14:20)
DX: N20.0 Calculus of kidney (principal); Q61.5 Medullary cystic kidney; Z87.442 Personal history of urinary calculi; E03.9 Hypothyroidism, unspecified; E78.00 Pure hypercholesterolemia, unspecified; G47.33 Obstructive sleep apnea (adult) (pediatric); Z99.89 Dependence on other enabling machines and devices; Z79.899 Other long term (current) drug therapy; Z88.0 Allergy status to penicillin; Z88.1 Allergy status to other antibiotic agents; Z88.8 Allergy status to other drugs, medicaments and biological substances
CPT/HCPCS: 52356; 36415; 80048; 85027; C1758; C1769; C1894; C2617; J0690; J1100; J2250; J2405; J2550; J3010; Q9967

== ENCOUNTER → 2022-01-23 13:56 | Outpatient (BNVA) | payer MEDICARE, OTHER, SELFPAY | PROVIDERS: PCP Internal Medicine; Visit Provider Urology | DX: Q61.5 Medullary cystic kidney (principal) | CPT/HCPCS: 52310; 99212 ==

== ENCOUNTER 2022-02-16 09:31 | Outpatient (REF) | payer MEDICARE, OTHER, SELFPAY ==
--- NOTE | ~2022-02-16 | XR_ITS ---
EXAMINATION: XR ABDOMEN KUB CLINICAL INDICATION: Calculus of kidney. COMPARISON: CT abdomen 02/24/2019 and ultrasound 11/14/2021. TECHNIQUE: AP view of the abdomen. FINDINGS: The bowel gas pattern is nonspecific. There is scattered stool in the colon. There is no organomegaly. No radiopaque gallstones or radiopaque renal calculi seen. There is dense calcification in the pelvis question stone versus calcification. There is mild scoliosis of dorsolumbar spine. XR/XR KUB IMPRESSION: Mild constipation. No acute process seen. Dense calcification in the midpelvis question bladder stone versus phlebolith. No radiopaque calculi were seen in the bladder on the previous CT ultrasound exam 02/24/2019.
== END 2022-02-16 09:32 | disposition home or self-care (01) ==
LOC: HO.XRAY 09:31
PROVIDERS: PCP Internal Medicine; Visit Provider Urology
DX: N20.0 Calculus of kidney (principal); Q61.5 Medullary cystic kidney
CPT/HCPCS: 74018

== ENCOUNTER → 2022-03-25 09:27 | Outpatient (BNVA) | payer MEDICARE, OTHER, SELFPAY | PROVIDERS: PCP Internal Medicine; Visit Provider Urology | DX: N20.0 Calculus of kidney (principal); Q61.5 Medullary cystic kidney; Z46.6 Encounter for fitting and adjustment of urinary device | CPT/HCPCS: 99212 ==

== ENCOUNTER 2022-08-14 12:18 | Outpatient (REF) | payer MEDICARE, OTHER, SELFPAY ==
--- NOTE | ~2022-08-14 | US_ITS ---
EXAMINATION: US RETROPERITONEAL LIMITED (RENAL ONLY) CLINICAL INFORMATION: Medullary cystic kidney. Recent history of lithotripsy. COMPARISON: X-ray abdomen KUB 02/16/2022. Renal ultrasound 11/11/2021 and 03/27/2021. CT abdomen and pelvis 02/22/2019. TECHNIQUE: Real-time imaging of the kidneys. FINDINGS: RIGHT KIDNEY: 9.9 x 4.0 x 5.1 cm (SAG x AP x TRV). The kidney is normal in size, contour, and echogenicity. Renal cortical thickness is normal. No focal parenchymal lesions or hydronephrosis. There are clusters of echogenic tiny stones without caliectasis. They measure 8 x 8 mm and 1.2 x 1.0 cm. LEFT KIDNEY: 10.6 x 3.4 x 4.7 cm (SAG x AP x TRV). The kidney is normal in size, contour, and echogenicity. Renal cortical thickness is normal. No focal parenchymal lesions or hydronephrosis. There are small echogenic clustered areas midpole. They measure 9 x 7 mm, 8 x 9 mm, 5 x 6 mm, and 6 x 5 mm. There is no caliectasis seen. US/US renal BI IMPRESSION: Bilateral small echogenic clusters of stones without caliectasis or hydronephrosis.
== END 2022-08-14 12:19 | disposition home or self-care (01) ==
LOC: HO.US 12:18
PROVIDERS: PCP Internal Medicine; Visit Provider Urology
DX: Q61.5 Medullary cystic kidney (principal)
CPT/HCPCS: 76775

== ENCOUNTER → 2022-08-18 11:12 | Outpatient (BNVA) | payer MEDICARE, OTHER, SELFPAY | PROVIDERS: PCP Internal Medicine; Visit Provider Urology | DX: Q61.5 Medullary cystic kidney (principal) | CPT/HCPCS: Q3014 ==

== ENCOUNTER 2022-11-26 09:19 | Outpatient (REF) | payer MEDICARE, OTHER, SELFPAY ==
--- NOTE | ~2022-11-26 | US_ITS ---
EXAMINATION: US RETROPERITONEAL LIMITED (RENAL ONLY) CLINICAL INFORMATION: Medullary sponge kidney status post multiple ESWLs. COMPARISON: 08/14/2022 ultrasound as well as KUB of 02/16/2022, and CT of 02/22/2019. TECHNIQUE: Bilateral renal ultrasound. FINDINGS: RIGHT KIDNEY: 11.9 x 5.4 x 4.5 cm (SAG x AP x TRV). Right kidney is of normal size. No hydronephrosis is identified. No definite increased cortical echotexture is seen. No significant cortical thinning is noted. There are multiple punctate echogenic foci seen within the upper pole, midpole, and lower pole regions. Within the upper pole, there is a 4 mm calculus. Within the upper pole, there is a second 4 mm calculus. Within the interpolar region, there is a 4 mm calculus. All are nonobstructive. Renal cortical thickness is normal. No abnormal masses appreciated. LEFT KIDNEY: 10.7 x 3.4 x 5.4 cm (SAG x AP x TRV). Left kidney is of normal size. No suspicious masses appreciated. No hydronephrosis; however, the proximal ureter is prominent. There are some focal areas of cortical thinning present. There are numerous calcifications present which are nonobstructive. A few of the largest clusters are listed: - In the lateral mid pole, there is a 6 x 12 x 7 mm grouping - In the lower pole, there is a 7 x 11 x 4 mm grouping - In the upper pole, there is a 1.4 x 1.6 x 0.6 cm grouping US/US renal BI IMPRESSION: Numerous bilateral nonobstructing renal calculi. Focal regions of cortical thinning within the left kidney.
== END 2022-11-26 09:20 | disposition home or self-care (01) ==
LOC: HO.US 09:19
PROVIDERS: Visit Provider Urology
DX: Q61.5 Medullary cystic kidney (principal)
CPT/HCPCS: 76775

== ENCOUNTER → 2022-11-27 09:19 | Outpatient (BNVA) | payer MEDICARE, OTHER, SELFPAY | PROVIDERS: PCP Internal Medicine; Visit Provider Urology | DX: N20.0 Calculus of kidney (principal) | CPT/HCPCS: Q3014 ==

== ENCOUNTER 2022-11-30 14:08 | Day surgery (SDC) | payer MEDICARE, OTHER, SELFPAY ==
--- NOTE | ~2022-11-30 | FL_ITS ---
EXAMINATION: XR FLUOROSCOPY WITH IMAGES CLINICAL INFORMATION: Bilateral nonobstructing radiopaque renal calculi. COMPARISON: None available. TECHNIQUE: Fluoroscopy Supervised By: Dr. Mason Yanez Fluoroscopy Time: 86.2 seconds Cumulative Dose: 29.34 mGy-cm Images: 3 FINDINGS: 3 digital images obtained of left kidney and the ureter. The initial images reveal pelvicalyceal system opacified with contrast. No intraluminal filling defects seen. The subsequent and the last images reveal a ureteral stent with the distal end in the bladder. The proximal end is not in the [id number]. FL/FL guidance in OR IMPRESSION: Fluoroscopy guidance was provided to Dr. Mason Yanez during procedure.
[2022-11-30 14:17] VITALS: BMI 29.1
[2022-11-30 14:30] VITALS: BP 145/78; PULSE 61; RESP 16; TEMP 36.4; O2SAT 99
[2022-11-30] MEDS: Lactated Ringers 1,000 ML 50 ML IVCONT (14:40)
--- NOTE | 2022-11-30 15:47 | P.HPSUR_ITS ---
Pre-Procedural Eval Section A Date of Service: 11/30/22 The patient is an INPATIENT: No Changes since office visit: No Cold of Flu in the past 2 weeks, No New Medical Problems, No Changes in Medication and No Patient answered all questions The History & Physical has been completed within 30 days and I have reviewed it.: Yes Section B Chief Complaint: Calculus of kidney Allergies: Allergies Allergy/AdvReac Type Severity Reaction Status Date / Time celecoxib [From CELEBREX] Allergy Intermediate HIVES Verified 11/27/22 09:21 ciprofloxacin [From CIPRO] Allergy Intermediate HIVES Verified 11/27/22 09:21 clindamycin [CLINDAMYCIN] Allergy Intermediate C-DIF Verified 11/27/22 09:21 hydrochlorothiazide Allergy Intermediate HIVES Verified 11/27/22 09:21 [HYDROCHLOROTHIAZIDE] levofloxacin [From LEVAQUIN] Allergy Intermediate HIVES Verified 11/27/22 09:21 Penicillins [PENICILLINS] Allergy Intermediate HIVES Verified 11/27/22 09:21 Sulfa (Sulfonamide Allergy Intermediate HIVES Verified 11/27/22 09:21 Antibiotics) [SULFA (SULFONAMIDE ANTIBIOTICS)] phenazopyridine [Pyridium] Allergy Mild Rash Verified 11/27/22 09:21 cefazolin Allergy Itching Verified 11/30/22 14:43 From TORADOL Allergy Intermediate ? LETHARGY Uncoded 11/27/22 09:21 Review of Systems Sugical H&P ROS: Negative: Constitution, Cardiovascular, Respiratory, Neurological, Psychiatric, Hem-Onc, Allergic/Immunologic, Gastrointestinal, Genitourinary, Musculoskeletal, Integumentary, Endocrine and Eyes /Ears/Nose/Throat Exam Surgical H&P Exam: Normal: HEENT, Normal: Heart, Normal: Lungs, Normal: Extremities, Normal: Abdomen, Normal: Skin and Normal: Neurological Plan Diagnosis/Plan: Unchanged ( cystoscopy, left retrograde, left ureteroscopy with laser lithotripsy, possible stent) I have reviewed the history and physical and performed a pertinent physical examination on my patient. No changes have occurred unless specified. Time Spent With Patient Time: Total time managing care of this patient today ____ minutes.
--- NOTE | 2022-11-30 16:09 | HO.ANESPROP2 ---
HPI - Anesthesia Eval Consult details Narrative: 67 F for cystoscopy Ureteroroscopy , Laser, possible stent Denies any cardiac history. Functional status greater than 4 METS s/p same 05/2021 with GA-LMA 4 (multiple uro procedures in past) *Mutliple Med Allergies* cervical? vertebrae herniation s/p? fusion ,? some left sided? residual weakness . PMFSH Active Problems Active Problems: All Active Problems (Updated 01/06/22 @ 15:16 by Silvana Hennessy RN) Renal stones (Acute) Medullary sponge kidney (Acute) Past Medical History Medical History Arthritis Back pain Cervical cancer Elevated cholesterol Herniated disc, cervical History of colitis PONV (postoperative nausea and vomiting) Renal stones Sleep apnea Thyroid disease Functional capacity: independent ambulation Family History Family history of problems with anesthesia: No Surgical History Surgical History H/O colonoscopy History of Hx of cystoscopy Hx of fusion of cervical spine Hx of lithotripsy Hx of tonsillectomy Hx of total knee arthroplasty History of Problems with Anesthesia: Yes (PONV) Social History Social History Alcohol intake: never Patient Tobacco Use Status: Never used Tobacco Meds Allergies Allergy/AdvReac Type Severity Reaction Status Date / Time celecoxib [From CELEBREX] Allergy Intermediate HIVES Verified 11/27/22 09:21 ciprofloxacin [From CIPRO] Allergy Intermediate HIVES Verified 11/27/22 09:21 clindamycin [CLINDAMYCIN] Allergy Intermediate C-DIF Verified 11/27/22 09:21 hydrochlorothiazide Allergy Intermediate HIVES Verified 11/27/22 09:21 [HYDROCHLOROTHIAZIDE] levofloxacin [From LEVAQUIN] Allergy Intermediate HIVES Verified 11/27/22 09:21 Penicillins [PENICILLINS] Allergy Intermediate HIVES Verified 11/27/22 09:21 Sulfa (Sulfonamide Allergy Intermediate HIVES Verified 11/27/22 09:21 Antibiotics) [SULFA (SULFONAMIDE ANTIBIOTICS)] phenazopyridine [Pyridium] Allergy Mild Rash Verified 11/27/22 09:21 cefazolin Allergy Itching Verified 11/30/22 14:43 From TORADOL Allergy Intermediate ? LETHARGY Uncoded 11/27/22 09:21 Active Medications: Current Medications Lactated Ringer's (Lr) 1,000 mls @ 50 mls/hr IVCONT .Q20H MARIE Last Admin: 11/30/22 14:40 Dose: 50 mls/hr Home Medications Medication Instructions Recorded Confirmed Last Taken Type chlorthalidone 25 mg tablet 1 tab PO DAILY 09/26/20 08/18/22 06/23/21 09:30 History levothyroxine 25 mcg tablet 25 mcg PO DAILY 09/26/20 08/18/22 11/30/22 08:00 History potassium citrate 10 mEq (1,080 1 tab PO TID 09/26/20 08/18/22 06/23/21 09:30 History mg) tablet,extended release pravastatin 40 mg tablet 1 tab PO DAILY 09/26/20 08/18/22 Unknown History acetaminophen 500 mg tablet 1,000 mg PO Q6H PRN Pain 01/06/22 08/18/22 11/30/22 08:00 History COVID-19 antigen test (Flowflex #1 ea 03/24/22 08/18/22 Unknown History COVID-19 Antigen Home Test kit) Exam Exam Date and Time: November 30, 2022 1609 Height,Weight and Vital Signs: Height 5 ft 5 in Weight 79.379 kg Last Vital Signs Temp 97.5 F 11/30/22 14:30 Pulse 61 11/30/22 14:30 Resp 16 11/30/22 14:30 BP 145/78 H 11/30/22 14:30 Pulse Ox 99 11/30/22 14:30 O2 Del Method Room Air 11/30/22 14:30 Airway Mallampati Class: III TM Dist: >3cm Neck ROM: Full Loose/Missing/Broken Teeth: Yes (crowns , fillings ) Assessment and Plan Assessment Anesthesia Assessment: Anesthesia Plan Discussed and Chart Reviewed Final Anesthetic Review Family History of Problems with Anesthesia: No History of Problems with Anesthesia: Yes (PONV) NPO: Yes ASA Class: III Final Preanesthetic Review: Meds/Allgs Chart Reviewed, Consent Obtained/Reviewed and Anes Risks/Benef Reviewed Patient Risk: Intermediate Procedure Risk: Intermediate Anesthetic Plan Anesthetic Plan: GA Disposition: Standard PACU
--- NOTE | 2022-11-30 16:56 | W.PM.OPN ---
Operative Note Operative Note Date of Service: 11/30/22 Narrative: PreOperative Diagnosis: Pain on left side with known Medullary sponge kidney and stones Post Operative Diagnosis: Medullary sponge kidney with stones submucosal Procedure: - cystoscopy, left retrograde - left dilatation of ureteric orifice under fluoroscopy - left ureteroscopy, laser lithotripsy - left stent placement Surgeon: Dr Beau Cuevas Anesthesia: General Indications for procedure: Known Medullary sponge kidney. Recurrent stone former. Left flank increase in baseline discomfort. Concern regarding recurrence stones. US imaging always shows multiple clusters Procedure: After informed consent was verified patient was brought to the operating placed in supine position. Anesthesia was administered per protocol. Patient was placed in modified dorsal lithotomy position and prepped and draped in a sterile fashion. Safety pause time-out and side of surgery confirmed. Antibiotics confirmed. 22 Montenegrin cystoscope was inserted per urethra. Bladder was normal in its entirety. Both ureteric orifices were in normal position. The Left ureteric orifice was cannulated and a retrograde examination was performed. Narrowing at UPJ with mild hydro. A glidewire was placed up to the level of the renal pelvis under fluoroscopy. There was some discharge of debris with wire placement The rigid cystoscope was removed and the inner cannula of ureteric access sheath was used under fluoroscopy to dilate the ureteric orifice. The ureteric access sheath was placed and the inner cannula with access wire removed. The digital flexible ureteral scope was placed. The renal pelvis and all associated calices were examined in detail. Submucosal stones lay within all calices. There were a glomerulations throughout the kidney. Using a 270 micron laser fiber areas of submucosal stone was lasered to release in free stone debris. This occurred and all calices. When complete there were many small stones floating within the kidney. A decision was made for stent placement. A 6 Montenegrin by 26 cm double-J stent was placed into the renal pelvis and bladder under a combination of fluoroscopy and direct visualization. The bladder was emptied. The patient tolerated the procedure well and was extubated in the operating room, and transferred in stable condition to the recovery area. Pathology: No stones Drains: 6 Montenegrin by 24 cm double-J stent
[2022-11-30 17:11] VITALS: BP 150/85; PULSE 59; RESP 18; TEMP 36.2; O2SAT 100
[2022-11-30 17:16] VITALS: BP 136/88; PULSE 53; RESP 18; O2SAT 100
[2022-11-30 17:21] VITALS: BP 136/88; PULSE 57; RESP 18; O2SAT 98
[2022-11-30 17:26] VITALS: BP 141/93; PULSE 63; RESP 18; O2SAT 97
[2022-11-30 17:41] VITALS: BP 142/80; PULSE 59; RESP 18; O2SAT 97
== END 2022-11-30 18:12 | disposition home or self-care (01) ==
PROVIDERS: PCP Internal Medicine; Visit Provider Urology
PROC: (CPT 52356; principal; 2022-11-30 15:05)
DX: N20.0 Calculus of kidney (principal); Q61.5 Medullary cystic kidney; Z87.442 Personal history of urinary calculi; E03.9 Hypothyroidism, unspecified; E78.00 Pure hypercholesterolemia, unspecified; G47.33 Obstructive sleep apnea (adult) (pediatric); Z85.41 Personal history of malignant neoplasm of cervix uteri; Z88.0 Allergy status to penicillin; Z88.2 Allergy status to sulfonamides; Z88.1 Allergy status to other antibiotic agents; Z88.8 Allergy status to other drugs, medicaments and biological substances
CPT/HCPCS: 52356; C1758; C1769; C1894; C2617; J0131; J1100; J1580; J2250; Q9967

== ENCOUNTER → 2022-12-18 14:49 | Outpatient (BNVA) | payer MEDICARE, OTHER, SELFPAY | PROVIDERS: PCP Internal Medicine; Visit Provider Urology | DX: Q61.5 Medullary cystic kidney (principal) | CPT/HCPCS: 52310; 99212 ==

== ENCOUNTER → 2023-02-17 15:31 | Outpatient (BNVA) | payer MEDICARE, OTHER, SELFPAY | PROVIDERS: PCP Internal Medicine; Visit Provider Urology | DX: Q61.5 Medullary cystic kidney (principal) | CPT/HCPCS: 99212 ==

== ENCOUNTER 2023-08-03 08:04 | Outpatient (REF) | payer MEDICARE, OTHER, SELFPAY ==
--- NOTE | ~2023-08-03 | US_ITS ---
EXAMINATION: US RETROPERITONEAL LIMITED (RENAL ONLY) CLINICAL INFORMATION: Medullary cystic kidney. COMPARISON: Renal ultrasound 11/26/2022 and 08/14/2022. X-ray abdomen KUB 02/16/2022. CT abdomen and pelvis 02/22/2019. TECHNIQUE: Real-time imaging of the kidneys. FINDINGS: RIGHT KIDNEY: 11.6 x 4.3 x 4.1 cm (SAG x AP x TRV). The kidney is normal in size, contour, and echogenicity. Renal cortical thickness is normal. No focal parenchymal lesions or hydronephrosis. At the upper pole, a 6 mm nonobstructing calculus is seen. At the interpolar aspect, a 5 mm nonobstructing calculus is seen. Proximal ureterectasis is questioned. LEFT KIDNEY: 10.7 x 4.6 x 5.8 cm (SAG x AP x TRV). The kidney is normal in size, contour, and echogenicity. Renal cortical thickness is normal. No focal parenchymal lesions or hydronephrosis. At the upper pole, 6 mm, 8 mm and 1.0 cm nonobstructing calculi are seen. At the interpolar aspect, a 7 mm nonobstructing calculus is seen. At the lower pole, an 8 mm nonobstructing calculus is seen. US/US renal BI IMPRESSION: There are nonobstructing bilateral calculi. No hydronephrosis is seen bilaterally. Mild proximal right ureterectasis is questioned.
== END 2023-08-03 08:05 | disposition home or self-care (01) ==
LOC: HO.US 08:04
PROVIDERS: Absent Provider Internal Medicine Nephrology; PCP Internal Medicine; Visit Provider Urology
DX: Q61.5 Medullary cystic kidney (principal)
CPT/HCPCS: 76775

== ENCOUNTER 2023-08-18 15:37 | Outpatient (AMB) | payer MEDICARE, OTHER, SELFPAY ==
--- NOTE | 2023-08-18 15:43 | A.OFFVIS_ITS ---
Intake Intake Visit Reasons: 6M Litho/US(set) Intake Note: Patient is present for a follow-up on Litholink Results: Urology Med: Vitamin b6 Antibiotic Allergy: Trimethoprim. Penicillins, Sulfa, Levofloxacin, Clindamycin, Cipro Blood Thinner: None Medical Doctor Nuclear Medicine Required: No Accompanied by: Self / Same As Patient Allergies celecoxib [From CELEBREX] Allergy (Intermediate, Verified 08/18/23 15:44) HIVES ciprofloxacin [From CIPRO] Allergy (Intermediate, Verified 08/18/23 15:44) HIVES clindamycin [CLINDAMYCIN] Allergy (Intermediate, Verified 08/18/23 15:44) C-DIF hydrochlorothiazide [HYDROCHLOROTHIAZIDE] Allergy (Intermediate, Verified 08/18/23 15:44) HIVES levofloxacin [From LEVAQUIN] Allergy (Intermediate, Verified 08/18/23 15:44) HIVES Penicillins [PENICILLINS] Allergy (Intermediate, Verified 08/18/23 15:44) HIVES Sulfa (Sulfonamide Antibiotics) [SULFA (SULFONAMIDE ANTIBIOTICS)] Allergy (Intermediate, Verified 08/18/23 15:44) HIVES trimethoprim Allergy (Intermediate, Verified 08/18/23 15:44) Angioedema phenazopyridine [Pyridium] Allergy (Mild, Verified 08/18/23 15:44) Rash cefazolin Allergy (Verified 08/18/23 15:44) Itching From TORADOL Allergy (Intermediate, Uncoded 08/18/23 15:44) ? LETHARGY Medication List - Last Reconciled 08/18/23 by Beau Cuevas MD acetaminophen 1,000 mg PO Q6H PRN chlorthalidone 1 tab PO DAILY COVID-19 antigen test (Flowflex COVID-19 Antigen Home Test kit) As directed levothyroxine 25 mcg PO DAILY metronidazole 0.75% topical potassium citrate ER 1 tab PO TID pravastatin 1 tab PO DAILY prochlorperazine maleate 10 mg PO TID PRN 30 days pyridoxine (vitamin B6) (Vitamin B-6) 100 mg PO DAILY 90 days trimethoprim 100 mg PO Q12H 5 days HPI HPI Comments History of Present Illness Details Juve is a pleasant female. She is a patient of Dr Herron. She is seen for the following urologic conditions - Nephrology - Dr Gonzalez - nephrolithiasis - Medullary sponge kidney She has been happy to access 24 hour urine result on [employer] portal. Has printed copy for Dr. Carlos Che link follow-up Review of current results - good urine output, calcium okay at 01: 50, sodium 135 could be around 100, cit rate 280 despite supplementation, oxalate 36, pH 7.5 Refilled potassium citrate Discussed imaging result - ultrasound with stone Calcium phosphate saturation normal range Has chlorthalidone from Nephrology 6 month review repeat 24 hour urine and imaging with KUB and ultrasound Nephrolithiasis Patient with medullary sponge kidney who is a chronic stone former with a h istory of multiple ESWL as the patient does not tolerate stents. Imaging - US 09/19 1.9 cm right renal stone was 0.8 cm left renal stone - 11/17 US right renal stone 1.2 cm, left renal stone 6 mm - 03/19 renal ultrasound bilateral Medullary sponge no clear definitive stones - 12/19 renal ultrasound Medullary sponge kidney 6 mm stones bilateral - 08/20 renal ultrasound Medullary sponge kidney bilateral submucosal calcifications - 07/22 renal ultrasound - bilateral stones Medullary sponge kidney left worse than right Interventions - 11/17 ESWL left and right side separate. - 12/18 right ureteroscopy - significant amount of imbedded stone material with post pyelonephritis requiring IV antibiotics - 06/19 left ureteroscopy with similar amount of imbedded stone as right side - 01/18 left ureteroscopy with imbedded stone 24 hour urines - 01/17 great urine output, normal calcium, normal oxalate, normal sodium, borderline citrate - 3 L urine output - add potassium citrate PFSH Medical History Arthritis Back pain Cervical cancer Elevated cholesterol Herniated disc, cervical History of colitis PONV (postoperative nausea and vomiting) Renal stones Sleep apnea Thyroid disease Surgical History H/O colonoscopy History of Hx of cystoscopy Hx of fusion of cervical spine Hx of lithotripsy Hx of tonsillectomy Hx of total knee arthroplasty Social History Alcohol intake: never Patient Tobacco Use Status: Never used Tobacco Review of Systems Const Denies chills and Denies fever(s) Card Reports no additional complaints and Denies syncope Resp Denies cough GI Denies abdominal pain and Denies heartburn Reports as per HPI and Denies change in libido Neuro Denies syncope Psych Denies change in libido Endo Denies change in libido Physical Exam Const General: cooperative, healthy appearing, comfortable and no acute distress Orientation/consciousness: patient oriented x3 HEENT Face and sinus: Yes normal facial exam Mouth: moist mucous membranes Neck Neck: Yes normal visual inspection, Yes full ROM and Yes trachea midline Chest Chest palpation & inspection: normal inspection of the chest Resp Effort & Inspection: normal respiratory effort, able to speak in complete sentences and no respiratory distress GI Inspection: Yes normal to inspection Back/Spine/Pelvis Cervical Spine: normal cervical lordosis Thoracic/Lumbar Spine: thoracic and lumbar spine normal to inspection Skin General skin exam: no rashes or lesions noted Neuro General: patient oriented x3, gait normal, tone normal and moves all extremities Extrem General: Yes normal to inspection and Yes capillary refill normal Results AMB Urinalysis, Automated UA Leukoctes 0 Melany/uL Last Edit by HSARI Gama on 08/18/23 16:04 UA Nitrite Negative Last Edit by SHARI Gama on 08/18/23 16:04 UA Urobilinogen 0.2 mg/dL Last Edit by SHARI Gama on 08/18/23 16:0 4 UA Protein 0 mg/dL Last Edit by SHARI Gama on 08/18/23 16:04 UA pH 8.0 Last Edit by SHARI Gama on 08/18/23 16:04 UA Blood 0 Jonathan/uL Last Edit by SHARI Gama on 08/18/23 16:04 UA Specific [place] 1.010 Last Edit by SHARI Gama on 08/18/23 16: 04 UA Ketone Negative Last Edit by SHARI Gama on 08/18/23 16:04 UA Bilirubin 0 mg/dL Last Edit by SHARI Gama on 08/18/23 16:04 UA Glucose 0 mg/dL Last Edit by SHARI Gama on 08/18/23 16:04 Results Reviewed Results Reviewed: Laboratory Last Values Urine pH (Auto) 8.0 08/18/23 15:59 Specific [place] (Auto) 1.010 08/18/23 15:59 Urine Protein (Auto) 0 mg/dL 08/18/23 15:59 Glucose (UA)(Auto) 0 mg/dL 08/18/23 15:59 Urine Ketones (Auto) Negative 08/18/23 15:59 Urine Blood (Auto) 0 Jonathan/uL 08/18/23 15:59 Urine Nitrite (Auto) Negative 08/18/23 15:59 Urine Bilirubin (Auto) 0 mg/dL 08/18/23 15:59 Urine Urobilinogen (Auto) 0.2 mg/dL 08/18/23 15:59 Leukocyte Esterase (Auto) 0 Melany/uL 08/18/23 15:59 Assessment & Plan Assessment & Plan (1) Medullary sponge kidney: Code(s): Q61.5 - Medullary cystic kidney (2) Renal stones: Code(s): N20.0 - Calculus of kidney Plan Six month follow-up imaging Orders: Orders US renal BI 6 Months Q61.5 - Medullary cystic kidney AMB Urinalysis Automated Today Z13.9 - Encounter for screening, unspecified XR KUB 6 Months Q61.5 - Medullary cystic kidney Medications: Changed From potassium citrate ER 1 tab PO TID Q61.5 - Medullary cystic kidney To potassium citrate ER 20 mEq (2 x 10 mEq (1,080 mg)) PO TID 90 days 540 tabs 1RF Q61.5 - Medullary cystic kidney Patient Instructions: Imaging studies, laboratory and physical exam results were discussed and reviewed in detail. No major barriers to patient understanding were identified. An opportunity to ask questions regarding the treatment plan was provided. All questions were answered. The patient expressed understanding and agreement with the above treatment plan. The patient is aware they should contact our office by phone for worsening of their current condition or the appearance of new urologic symptoms. Compliance is encouraged with any medications and followup testing that is ordered. It is a privilege to participate in the urologic care of your patient. If you have any questions or concerns regarding treatment for the above conditions, or other urologic issues, please do not hesitate to contact me. The office telephone contact is [phone]. This note is constructed using voice recognition software. While every effort has been made to ensure accuracy cryogenic transport driver errors may have been included. Yours sincerely, Dr Beau Cuevas MD, [facility] - Urology Providers of Expert, Compassionate Care for the Genitourinary System Coding Level of Care Code Est Pt Level 4 (34489) Diagnoses Medullary sponge kidney Q61.5 Renal stones N20.0
== END 2023-08-18 16:31 | disposition home or self-care (01) ==
LOC: HO.HUSH 15:37
PROVIDERS: PCP Internal Medicine; Visit Provider Urology
DX: Q61.5 Medullary cystic kidney (principal); N20.0 Calculus of kidney; Z13.9 Encounter for screening, unspecified
CPT/HCPCS: 99214

== ENCOUNTER → 2023-08-18 15:37 | Outpatient (BNVA) | payer MEDICARE, OTHER, SELFPAY | PROVIDERS: PCP Internal Medicine; Visit Provider Urology | DX: Q61.5 Medullary cystic kidney (principal); N20.0 Calculus of kidney | CPT/HCPCS: 81003; 99212 ==

== ENCOUNTER 2023-10-04 13:32 | Day surgery (SDC) | payer MEDICARE, OTHER, SELFPAY ==
[2023-10-04] VITALS (8 sets, daily range): BP systolic 126–165; BP diastolic 71–87; PULSE 58–67; RESP 12–18; TEMP 36.6–36.9; O2SAT 90–98
--- NOTE | ~2023-10-04 | FL_ITS ---
EXAMINATION: XR FLUOROSCOPY WITH IMAGES CLINICAL INFORMATION: Left ureteroscopy. Bilateral nonobstructing renal calculi. COMPARISON: Renal ultrasound 08/03/2023. Fluoroscopic guidance in OR of 11/30/2022. TECHNIQUE: Fluoroscopy Supervised By: Dr. Beau Cuevas. Fluoroscopy Time: 5.1 seconds. Cumulative Dose: 1.53 mGy. DAP: 9 Gycm2. Images: 0. FINDINGS: Fluoroscopic guidance provided in OR for left ureteroscopy, cystoscopy. Images are not available for interpretation. FL/FL guidance in OR IMPRESSION: Fluoroscopic guidance provided in OR for left ureteroscopy, cystoscopy. Images are not available for interpretation.
--- NOTE | 2023-10-04 14:44 | HO.ANESPROP2 ---
[facility] Active Problems Active Problems: All Active Problems (Updated 01/06/22 @ 15:16 by Silvana Hennessy RN) Renal stones (Acute) Medullary sponge kidney (Acute) Past Medical History Medical History Arthritis Back pain Cervical cancer Elevated cholesterol Herniated disc, cervical History of colitis PONV (postoperative nausea and vomiting) Renal stones Sleep apnea Thyroid disease Family History Family history of problems with anesthesia: No Surgical History Surgical History H/O colonoscopy History of Hx of cystoscopy Hx of fusion of cervical spine Hx of lithotripsy Hx of tonsillectomy Hx of total knee arthroplasty History of Problems with Anesthesia: Yes (PONV) Social History Social History Alcohol intake: never Patient Tobacco Use Status: Never used Tobacco Use of substances other than those prescribed or required for medical reasons: No Are you DNR?: No Advance Directives: No Advance Directives Information Provided: Yes Meds Allergies Allergy/AdvReac Type Severity Reaction Status Date / Time celecoxib [From CELEBREX] Allergy Intermediate HIVES Verified 10/04/23 13:56 ciprofloxacin [From CIPRO] Allergy Intermediate HIVES Verified 10/04/23 13:56 clindamycin [CLINDAMYCIN] Allergy Intermediate C-DIF Verified 10/04/23 13:56 hydrochlorothiazide Allergy Intermediate HIVES Verified 10/04/23 13:56 [HYDROCHLOROTHIAZIDE] levofloxacin [From LEVAQUIN] Allergy Intermediate HIVES Verified 10/04/23 13:56 Penicillins [PENICILLINS] Allergy Intermediate HIVES Verified 10/04/23 13:56 Sulfa (Sulfonamide Allergy Intermediate HIVES Verified 10/04/23 13:56 Antibiotics) [SULFA (SULFONAMIDE ANTIBIOTICS)] trimethoprim Allergy Intermediate Angioedema Verified 10/04/23 13:56 phenazopyridine [Pyridium] Allergy Mild Rash Verified 10/04/23 13:56 cefazolin Allergy Itching Verified 10/04/23 13:56 From TORADOL Allergy Intermediate ? LETHARGY Uncoded 10/04/23 13:56 Active Medications: Current Medications Vancomycin HCl 1,500 mg/ (Sodium Chloride) 500 mls @ 333.333 mls/hr IV PREOP ONE Stop: 10/04/23 15:59 Home Medications Medication Instructions Recorded Confirmed Last Taken Type chlorthalidone 25 mg tablet 1 tab PO DAILY 09/26/20 10/04/23 06/23/21 09:30 History levothyroxine 25 mcg tablet 25 mcg PO DAILY 09/26/20 10/04/23 10/04/23 06:30 History pravastatin 40 mg tablet 1 tab PO DAILY 09/26/20 10/04/23 Unknown History acetaminophen 500 mg tablet 1,000 mg PO Q6H PRN Pain 01/06/22 10/04/23 10/04/23 06:30 History COVID-19 antigen test (Flowflex #1 ea 03/24/22 08/18/23 Unknown History COVID-19 Antigen Home Test kit) metronidazole 0.75 % topical gel topical 02/17/23 08/18/23 Unknown History Exam Height,Weight and Vital Signs: Height 5 ft 5 in Weight 81.647 kg Last Vital Signs Temp 98.4 F 10/04/23 14:08 Pulse 65 10/04/23 14:08 Resp 16 10/04/23 14:08 BP 147/76 H 10/04/23 14:08 Pulse Ox 94 10/04/23 14:08 O2 Del Method Room Air 10/04/23 14:08 Airway Mallampati Class: II TM Dist: >3cm Neck ROM: Full Heart: rrr Lungs: cta Assessment and Plan Assessment Anesthesia Assessment: Anesthesia Plan Discussed and Chart Reviewed Final Anesthetic Review Family History of Problems with Anesthesia: No History of Problems with Anesthesia: Yes (PONV) NPO: Yes ASA Class: II Final Preanesthetic Review: No Changes in Pt Med Stat and Meds/Allgs Chart Reviewed Patient Risk: Intermediate Procedure Risk: Intermediate Anesthetic Plan Anesthetic Plan: GA Disposition: Standard PACU
[2023-10-04] MEDS: vancomycin HCL 1,500 MG in 0.9 % Sodium Chloride 500 ML 333.33 MG IV (14:49)
[2023-10-04] MEDS: Lactated Ringers 1,000 ML 80 ML IVCONT (15:34)
--- NOTE | 2023-10-04 16:18 | P.CONAN_ITS ---
[facility] Active Problems Active Problems: All Active Problems (Updated 01/06/22 @ 15:16 by Silvana Hennessy RN) Renal stones (Acute) Medullary sponge kidney (Acute) Past Medical History Medical History PONV (postoperative nausea and vomiting) Herniated disc, cervical Arthritis Back pain Thyroid disease History of colitis Sleep apnea Elevated cholesterol Cervical cancer Renal stones Functional capacity: independent ambulation Family History Family history of problems with anesthesia: No Surgical History Surgical History Hx of fusion of cervical spine Hx of lithotripsy Hx of tonsillectomy Hx of total knee arthroplasty H/O colonoscopy Hx of cystoscopy History of History of Problems with Anesthesia: Yes (PONV) Social History Social History Alcohol intake: never Patient Tobacco Use Status: Never used Tobacco Use of substances other than those prescribed or required for medical reasons: No Are you DNR?: No Advance Directives: No Advance Directives Information Provided: Yes Meds Allergies Allergy/AdvReac Type Severity Reaction Status Date / Time celecoxib [From CELEBREX] Allergy Intermediate HIVES Verified 10/04/23 13:56 ciprofloxacin [From CIPRO] Allergy Intermediate HIVES Verified 10/04/23 13:56 clindamycin [CLINDAMYCIN] Allergy Intermediate C-DIF Verified 10/04/23 13:56 hydrochlorothiazide Allergy Intermediate HIVES Verified 10/04/23 13:56 [HYDROCHLOROTHIAZIDE] levofloxacin [From LEVAQUIN] Allergy Intermediate HIVES Verified 10/04/23 13:56 Penicillins [PENICILLINS] Allergy Intermediate HIVES Verified 10/04/23 13:56 Sulfa (Sulfonamide Allergy Intermediate HIVES Verified 10/04/23 13:56 Antibiotics) [SULFA (SULFONAMIDE ANTIBIOTICS)] trimethoprim Allergy Intermediate Angioedema Verified 10/04/23 13:56 phenazopyridine [Pyridium] Allergy Mild Rash Verified 10/04/23 13:56 cefazolin Allergy Itching Verified 10/04/23 13:56 From TORADOL Allergy Intermediate ? LETHARGY Uncoded 10/04/23 13:56 Active Medications: Current Medications Lactated Ringer's (Lr) 1,000 mls @ 80 mls/hr IVCONT .[id number] MARIE Last Admin: 10/04/23 15:34 Dose: 80 mls/hr Oxycodone HCl (Oxycodone Hcl Immed Release 5 Mg Tablet) 5 mg PO ONCE PRN PRN Reason: Pain, Severe (Pain Scale 7-10) Home Medications Medication Instructions Recorded Confirmed Last Taken Type chlorthalidone 25 mg tablet 1 tab PO DAILY 09/26/20 10/04/23 06/23/21 09:30 History levothyroxine 25 mcg tablet 25 mcg PO DAILY 09/26/20 10/04/23 10/04/23 06:30 History pravastatin 40 mg tablet 1 tab PO DAILY 09/26/20 10/04/23 Unknown History acetaminophen 500 mg tablet 1,000 mg PO Q6H PRN Pain 01/06/22 10/04/23 10/04/23 06:30 History COVID-19 antigen test (Flowflex #1 ea 03/24/22 08/18/23 Unknown History COVID-19 Antigen Home Test kit) metronidazole 0.75 % topical gel topical 02/17/23 08/18/23 Unknown History Exam Height,Weight and Vital Signs: Height 5 ft 5 in Weight 81.647 kg Last Vital Signs Temp 98.4 F 10/04/23 14:08 Pulse 65 10/04/23 14:08 Resp 16 10/04/23 14:08 BP 147/76 H 10/04/23 14:08 Pulse Ox 94 10/04/23 14:08 O2 Del Method Room Air 10/04/23 14:08 Airway Mallampati Class: II TM Dist: >3cm Neck ROM: Full Heart: RRR Lungs: CTA Assessment and Plan Assessment Anesthesia Assessment: Anesthesia Plan Discussed Final Anesthetic Review Family History of Problems with Anesthesia: No History of Problems with Anesthesia: Yes (PONV) NPO: Yes ASA Class: II Final Preanesthetic Review: Meds/Allgs Chart Reviewed, Consent Obtained/Reviewed and Anes Risks/Benef Reviewed Patient Risk: Low Procedure Risk: Low Anesthetic Plan Anesthetic Plan: GA Disposition: Standard PACU
--- NOTE | 2023-10-04 16:40 | MHC.SHP ---
Pre-Procedural Eval Section A - 24 Hr Update-Section A only Date of Service: 10/04/23 The patient is an INPATIENT: No Changes since office visit: No Cold of Flu in the past 2 weeks, No New Medical Problems, No Changes in Medication and No Patient answered all questions The patient has been examined within 24 hours of the surgical procedure. The History & Physical has been completed within 30 days and I have reviewed it.: No Section B - Complete if H&P > 30 days Chief Complaint: Medullary cystic kidney Details of Present Illness: Left renal pain Relevant Family History (Specify if Yes): No Relevant Social History: None Present Medications: see Short Stay Collaborative assessment Medical History: No relevant PMH History of Previous Operations: Relevant previous surgery/procedure and date(s) Allergies: Allergies Allergy/AdvReac Type Severity Reaction Status Date / Time celecoxib [From CELEBREX] Allergy Intermediate HIVES Verified 10/04/23 13:56 ciprofloxacin [From CIPRO] Allergy Intermediate HIVES Verified 10/04/23 13:56 clindamycin [CLINDAMYCIN] Allergy Intermediate C-DIF Verified 10/04/23 13:56 hydrochlorothiazide Allergy Intermediate HIVES Verified 10/04/23 13:56 [HYDROCHLOROTHIAZIDE] levofloxacin [From LEVAQUIN] Allergy Intermediate HIVES Verified 10/04/23 13:56 Penicillins [PENICILLINS] Allergy Intermediate HIVES Verified 10/04/23 13:56 Sulfa (Sulfonamide Allergy Intermediate HIVES Verified 10/04/23 13:56 Antibiotics) [SULFA (SULFONAMIDE ANTIBIOTICS)] trimethoprim Allergy Intermediate Angioedema Verified 10/04/23 13:56 phenazopyridine [Pyridium] Allergy Mild Rash Verified 10/04/23 13:56 cefazolin Allergy Itching Verified 10/04/23 13:56 From TORADOL Allergy Intermediate ? LETHARGY Uncoded 10/04/23 13:56 Review of Systems Sugical H&P ROS: Negative: Constitution, Cardiovascular, Respiratory, Neurological, Psychiatric, Hem-Onc, Allergic/Immunologic, Gastrointestinal, Genitourinary, Musculoskeletal, Integumentary, Endocrine and Eyes/Ears/Nose/Throat Exam Surgical H&P Exam: Normal: HEENT, Normal: Heart, Normal: Lungs, Normal: Extremities, Normal: Abdomen, Normal: Skin and Normal: Neurological Plan Diagnosis/Plan: Unchanged (Cystoscopy, left retrograde, left ureteroscopy with laser lithotripsy stent placement) I have reviewed the history and physical and performed a pertinent physical examination on my patient. No changes have occurred unless specified. Time Spent With Patient Time: Total time managing care of this patient today ____ minutes.
--- NOTE | 2023-10-04 16:54 | P.CONAN_ITS ---
[facility] Active Problems Active Problems: All Active Problems Renal stones (Acute) Medullary sponge kidney (Acute) Past Medical History Medical History PONV (postoperative nausea and vomiting) Herniated disc, cervical Arthritis Back pain Thyroid disease History of colitis Sleep apnea Elevated cholesterol Cervical cancer Renal stones Functional capacity: independent ambulation Family History Family history of problems with anesthesia: No Surgical History Surgical History Hx of fusion of cervical spine Hx of lithotripsy Hx of tonsillectomy Hx of total knee arthroplasty H/O colonoscopy Hx of cystoscopy History of History of Problems with Anesthesia: Yes (PONV) Social History Social History Alcohol intake: never Patient Tobacco Use Status: Never used Tobacco Use of substances other than those prescribed or required for medical reasons: No Are you DNR?: No Advance Directives: No Advance Directives Information Provided: Yes Meds Allergies Allergy/AdvReac Type Severity Reaction Status Date / Time celecoxib [From CELEBREX] Allergy Intermediate HIVES Verified 10/04/23 13:56 ciprofloxacin [From CIPRO] Allergy Intermediate HIVES Verified 10/04/23 13:56 clindamycin [CLINDAMYCIN] Allergy Intermediate C-DIF Verified 10/04/23 13:56 hydrochlorothiazide Allergy Intermediate HIVES Verified 10/04/23 13:56 [HYDROCHLOROTHIAZIDE] levofloxacin [From LEVAQUIN] Allergy Intermediate HIVES Verified 10/04/23 13:56 Penicillins [PENICILLINS] Allergy Intermediate HIVES Verified 10/04/23 13:56 Sulfa (Sulfonamide Allergy Intermediate HIVES Verified 10/04/23 13:56 Antibiotics) [SULFA (SULFONAMIDE ANTIBIOTICS)] trimethoprim Allergy Intermediate Angioedema Verified 10/04/23 13:56 phenazopyridine [Pyridium] Allergy Mild Rash Verified 10/04/23 13:56 cefazolin Allergy Itching Verified 10/04/23 13:56 From TORADOL Allergy Intermediate ? LETHARGY Uncoded 10/04/23 13:56 Active Medications: Current Medications Lactated Ringer's (Lr) 1,000 mls @ 80 mls/hr IVCONT .[id number] MARIE Last Admin: 10/04/23 15:34 Dose: 80 mls/hr Oxycodone HCl (Oxycodone Hcl Immed Release 5 Mg Tablet) 5 mg PO ONCE PRN PRN Reason: Pain, Severe (Pain Scale 7-10) Home Medications Medication Instructions Recorded Confirmed Last Taken Type chlorthalidone 25 mg tablet 1 tab PO DAILY 09/26/20 10/04/23 06/23/21 09:30 History levothyroxine 25 mcg tablet 25 mcg PO DAILY 09/26/20 10/04/23 10/04/23 06:30 History pravastatin 40 mg tablet 1 tab PO DAILY 09/26/20 10/04/23 Unknown History acetaminophen 500 mg tablet 1,000 mg PO Q6H PRN Pain 01/06/22 10/04/23 10/04/23 06:30 History COVID-19 antigen test (Flowflex #1 ea 03/24/22 08/18/23 Unknown History COVID-19 Antigen Home Test kit) metronidazole 0.75 % topical gel topical 02/17/23 08/18/23 Unknown History Exam Height,Weight and Vital Signs: Height 5 ft 5 in Weight 81.647 kg Last Vital Signs Temp 98.4 F 10/04/23 14:08 Pulse 65 10/04/23 14:08 Resp 16 10/04/23 14:08 BP 147/76 H 10/04/23 14:08 Pulse Ox 94 10/04/23 14:08 O2 Del Method Room Air 10/04/23 14:08 Airway Mallampati Class: II TM Dist: >3cm Neck ROM: Full Heart: RRR Lungs: CTA Assessment and Plan Final Anesthetic Review Family History of Problems with Anesthesia: No History of Problems with Anesthesia: Yes (PONV) ASA Class: II Final Preanesthetic Review: Meds/Allgs Chart Reviewed, Consent Obtained/Reviewed and Anes Risks/Benef Reviewed Patient Risk: Low Procedure Risk: Low Anesthetic Plan Anesthetic Plan: GA Disposition: Standard PACU
--- NOTE | 2023-10-04 17:19 | PC.NURSE ---
Patient in preop resting. Complained of redness and itchiness around torso. Face observed to be mildly red. No other symptoms noted. IV Vancomycin antibiotics stopped. Dr. Cuevas made aware of adverse reaction. This medication added as allergy per him. No additional preop antibiotics needed. Dr. Guaman and Juan OR Nurse made aware.
--- NOTE | 2023-10-04 17:36 | W.PM.OPN ---
Operative Note Operative Note Date of Service: 10/04/23 Narrative: PreOperative Diagnosis: Left renal stones Post Operative Diagnosis: Left small renal stones Procedure: - cystoscopy, left retrograde - left dilatation of ureteric orifice under fluoroscopy - left ureteroscopy, laser lithotripsy Surgeon: Dr Beau Cuevas Anesthesia: General Indications for procedure: Persistent left flank pain in setting of Medullary sponge kidney and known stones on renal ultrasound. Procedure: After informed consent was verified patient was brought to the operating placed in supine position. Anesthesia was administered per protocol. Patient was placed in modified dorsal lithotomy position and prepped and draped in a sterile fashion. Safety pause time-out and side of surgery confirmed. Antibiotics confirmed. 22 [place] cystoscope was inserted per urethra. Bladder was normal in its entirety. Both ureteric orifices were in normal position. The left ureteric orifice was cannulated and a retrograde examination was performed. No filling defects seen. A Sensor guidewire was placed up to the level of the renal pelvis under fluoroscopy. The rigid cystoscope was removed and the inner cannula of ureteric access sheath was used under fluoroscopy to dilate the ureteric orifice. The ureteric access sheath was placed and the inner cannula with access wire removed. The digital flexible ureteral scope was placed. Small stones encountered submucosally in all calices. Using a small laser 272. Submucosal stones were addressed. There status suggest in the Medullary sponge kidney population submucosal stones cause inflammation which may be a major source of pain and discomfort. At the completion of the stone procedure the sheath and scope were gently removed allowing full evaluation of the ureter on removal. There was no evidence of any mucosal disruption or tear that can often happen with ureteric sheath placement. Due to the intact nature of the mucosa were decision was made not to place stent The bladder was emptied. The patient tolerated the procedure well and was extubated in the operating room, and transferred in stable condition to the recovery area. Pathology: None Drains: None
[2023-10-04] MEDS: ondansetron HCL 4 MG/2 ML VIAL IVPUSH (18:20)
[2023-10-04] MEDS: Acetaminophen 325 MG TABLET 650 MG PO (18:36)
== END 2023-10-04 19:03 | disposition home or self-care (01) ==
PROVIDERS: PCP Internal Medicine; Visit Provider Urology
PROC: 0TJB8ZZ Inspection of Bladder, Via Natural or Artificial Opening Endoscopic (ICD-10-PCS; CPT 52000; principal; 2023-10-04 15:40)
DX: N20.0 Calculus of kidney (principal); Q61.5 Medullary cystic kidney; Z87.442 Personal history of urinary calculi; G47.33 Obstructive sleep apnea (adult) (pediatric); Z79.899 Other long term (current) drug therapy; Z88.0 Allergy status to penicillin; Z88.1 Allergy status to other antibiotic agents; Z88.2 Allergy status to sulfonamides; Z88.8 Allergy status to other drugs, medicaments and biological substances; Z85.41 Personal history of malignant neoplasm of cervix uteri; E78.00 Pure hypercholesterolemia, unspecified; E03.9 Hypothyroidism, unspecified; Z98.890 Other specified postprocedural states; Z98.1 Arthrodesis status
CPT/HCPCS: 52353; C1894; J1885; J2250; J2405; J2704; J3010; J3371; Q9967

== ENCOUNTER → 2023-10-04 13:32 | Outpatient (BNV) | payer MEDICARE, OTHER, SELFPAY | PROVIDERS: PCP Internal Medicine; Visit Provider Urology | DX: N20.0 Calculus of kidney (principal) | CPT/HCPCS: 52353; 74420 ==

== ENCOUNTER 2023-11-09 09:49 | Outpatient (AMB) | payer MEDICARE, OTHER, SELFPAY ==
--- NOTE | 2023-11-09 09:50 | A.OFFVIS_ITS ---
Intake Vital Signs 11/09/23 10:20 Height 5 ft 5 in Weight 180 lb BMI 30.0 Intake Visit Reasons: History of total left knee replacement Intake Note: Juve is a 68 year old female who presents as a new patient who wants to reestablish care with Dr. Jang. Patient is here for a follow up after her Left TKA in 2018 DR. She reports mild intermittent discomfort. She denies any locking or giving way. She continues to do yoga and walk for exercise. What is up Allergies celecoxib [From CELEBREX] Allergy (Intermediate, Verified 10/04/23 13:56) HIVES ciprofloxacin [From CIPRO] Allergy (Intermediate, Verified 10/04/23 13:56) HIVES clindamycin [CLINDAMYCIN] Allergy (Intermediate, Verified 10/04/23 13:56) C-DIF hydrochlorothiazide [HYDROCHLOROTHIAZIDE] Allergy (Intermediate, Verified 10/04/23 13:56) HIVES levofloxacin [From LEVAQUIN] Allergy (Intermediate, Verified 10/04/23 13:56) HIVES Penicillins [PENICILLINS] Allergy (Intermediate, Verified 10/04/23 13:56) HIVES Sulfa (Sulfonamide Antibiotics) [SULFA (SULFONAMIDE ANTIBIOTICS)] Allergy (Intermediate, Verified 10/04/23 13:56) HIVES trimethoprim Allergy (Intermediate, Verified 10/04/23 13:56) Angioedema phenazopyridine [Pyridium] Allergy (Mild, Verified 10/04/23 13:56) Rash sulfamethoxazole [From Bactrim] Allergy (Mild, Verified 11/09/23 10:23) rash cefazolin Allergy (Verified 10/04/23 13:56) Itching vancomycin Adverse Reaction (Verified 10/04/23 17:19) Rash From TORADOL Allergy (Intermediate, Uncoded 10/04/23 13:56) ? LETHARGY Medication List - Last Reconciled 11/09/23 by Aleksander Jang MD acetaminophen 1,000 mg PO Q6H PRN chlorthalidone 1 tab PO DAILY COVID-19 antigen test (Flowflex COVID-19 Antigen Home Test kit) As directed levothyroxine 25 mcg PO DAILY metronidazole 0.75% topical potassium citrate ER 20 mEq (2 x 10 mEq (1,080 mg)) PO TID 90 days pravastatin 1 tab PO DAILY prochlorperazine maleate 10 mg PO TID PRN 30 days pyridoxine (vitamin B6) (Vitamin B-6) 100 mg PO DAILY 90 days tamsulosin 0.4 mg PO BEDTIME 14 days tramadol 50 mg PO Q6H PRN trimethoprim 100 mg PO Q12H 5 days PFSH Medical History PONV (postoperative nausea and vomiting) Herniated disc, cervical Arthritis Back pain Thyroid disease History of colitis Sleep apnea Elevated cholesterol Cervical cancer Renal stones Surgical History Hx of fusion of cervical spine Hx of lithotripsy Hx of tonsillectomy Hx of total knee arthroplasty H/O colonoscopy Hx of cystoscopy History of Social History Alcohol intake: never Patient Tobacco Use Status: Never used Tobacco Current occupational status: retired Physical Exam Vital Signs: BMI result Body Mass Index 30.0 Const Other: Well-nourished well-developed very friendly female awake alert and oriented x3 in no acute distress Extrem Other: Bilateral lower extremity examination shows good capillary refill, no skin lesions noted, normal sensation light touch Knee examination shows that the surgical incision is well healed no erythema, full active extension and flexion to 125 degrees, her patella tracks well Results Reviewed Results Reviewed: X-rays of the patient's left knee show a total knee arthroplasty in good position with no signs of loosening, no acute Assessment & Plan Assessment & Plan (1) History of total left knee replacement: Code(s): Z96.652 - Presence of left artificial knee joint Plan Ms. Licona continues to do well after undergoing left total knee replacement surgery. She will continue with her exercise program. She does know to take antibiotics before any dental work. She will contact me prior to her annual follow-up appointment should any questions or concerns arise. Feel free to call me time should questions regarding her orthopedic management arise. I spent 22 minutes in reviewing the patient's records and imaging studies, sarah mckinley the patient and documenting in the medical record. Medications: New azithromycin Take two tabs (500 mg) one hour before any dental work 500 mg (2 x 250 mg) PO ONCE 10 tabs 3RF Coding Level of Care Code New Pt Level 2 (16740) Diagnoses History of total left knee replacement Z96.652
== END 2023-11-09 10:44 | disposition home or self-care (01) ==
PROVIDERS: PCP Internal Medicine; Visit Provider Orthopaedic Surgery
DX: Z47.89 Encounter for other orthopedic aftercare (principal); Z96.652 Presence of left artificial knee joint
CPT/HCPCS: 99203; 99213

== ENCOUNTER 2023-11-09 14:46 | Outpatient (REF) | payer MEDICARE, OTHER, SELFPAY ==
--- NOTE | ~2023-11-09 | XR_ITS ---
EXAMINATION: XR KNEE, LEFT CLINICAL INFORMATION: Pain in left knee. COMPARISON: None available. TECHNIQUE: 3 views of the left knee. FINDINGS: Status post total knee arthroplasty. Hardware appears intact. Trace joint effusion. Alignment is preserved. XR/XR knee LT 3V IMPRESSION: Status post total knee arthroplasty. Hardware appears intact. Trace joint effusion.
== END 2023-11-09 14:47 | disposition home or self-care (01) ==
LOC: HO.HOSX 14:46
PROVIDERS: Visit Provider Orthopaedic Surgery
DX: M25.562 Pain in left knee (principal); Z96.652 Presence of left artificial knee joint; Z79.899 Other long term (current) drug therapy
CPT/HCPCS: 73562; 99202

== ENCOUNTER 2023-12-07 11:26 | Day surgery (SDC) | payer MEDICARE, OTHER, SELFPAY ==
[2023-12-03 13:13] VITALS: BMI 32.3
--- NOTE | 2023-12-06 11:53 | P.CONAN_ITS ---
HPI - Anesthesia Eval Consult details Narrative: 68yo F for Colonoscopy s/p cysto 09/2023 with [facility] 4 *Mutliple Med Allergies* cervical? vertebrae herniation s/p? fusion ,? some left sided? residual weakness . PMFSH Active Problems Active Problems: All Active Problems Right knee pain (Acute) Medullary sponge kidney (Acute) Renal stones (Acute) Past Medical History Medical History PONV (postoperative nausea and vomiting) Herniated disc, cervical Arthritis Back pain Thyroid disease History of colitis Sleep apnea Elevated cholesterol Cervical cancer Renal stones Family History Family history of problems with anesthesia: No Surgical History Surgical History (Updated 12/03/23 @ 13:11 by Manuela Lam RN) Hx of fusion of cervical spine Hx of lithotripsy Hx of tonsillectomy Hx of total knee arthroplasty H/O colonoscopy Hx of cystoscopy History of History of Problems with Anesthesia: Yes Social History Social History Alcohol intake: never Patient Tobacco Use Status: Never used Tobacco Current occupational status: retired Meds Allergies Allergy/AdvReac Type Severity Reaction Status Date / Time cefazolin Allergy Intermediate Itching Verified 12/03/23 13:12 celecoxib [From CELEBREX] Allergy Intermediate HIVES Verified 10/04/23 13:56 ciprofloxacin [From CIPRO] Allergy Intermediate HIVES Verified 10/04/23 13:56 clindamycin [CLINDAMYCIN] Allergy Intermediate C-DIF Verified 10/04/23 13:56 hydrochlorothiazide Allergy Intermediate HIVES Verified 10/04/23 13:56 [HYDROCHLOROTHIAZIDE] levofloxacin [From LEVAQUIN] Allergy Intermediate HIVES Verified 10/04/23 13:56 Penicillins [PENICILLINS] Allergy Intermediate HIVES Verified 10/04/23 13:56 Sulfa (Sulfonamide Allergy Intermediate HIVES Verified 10/04/23 13:56 Antibiotics) [SULFA (SULFONAMIDE ANTIBIOTICS)] trimethoprim Allergy Intermediate Angioedema Verified 10/04/23 13:56 phenazopyridine [Pyridium] Allergy Mild Rash Verified 10/04/23 13:56 sulfamethoxazole Allergy Mild rash Verified 11/09/23 10:23 [From Bactrim] vancomycin AdvReac Intermediate Rash Verified 12/03/23 13:12 From TORADOL Allergy Intermediate ? LETHARGY Uncoded 10/04/23 13:56 Home Medications ?Medication ?Instructions ?Recorded ?Confirmed ?Last Taken ?Type chlorthalidone 25 mg tablet 1 tab PO DAILY 09/26/20 12/03/23 06/23/21 09:30 History levothyroxine 25 mcg tablet 25 mcg PO DAILY 09/26/20 12/03/23 10/04/23 06:30 Hi story pravastatin 40 mg tablet 1 tab PO DAILY 09/26/20 12/03/23 Unknown History acetaminophen 500 mg tablet 1,000 mg PO Q6H PRN Pain 01/06/22 12/03/23 10/04/23 06:30 History COVID-19 antigen test (Flowflex #1 ea 03/24/22 11/09/23 Unknown History COVID-19 Antigen Home Test kit) metronidazole 0.75 % topical gel topical 02/17/23 11/09/23 Unknown History Exam Height,Weight and Vital Signs: Height 5 ft 4.5 in Weight 86.636 kg Assessment and Plan Assessment Anesthesia Assessment: Chart Reviewed Final Anesthetic Review Family History of Problems with Anesthesia: No History of Problems with Anesthesia: Yes
[2023-12-07 12:05] VITALS: BMI 32.1
--- NOTE | 2023-12-07 12:21 | PC.NURSE ---
while patient was at home she stated she was hypotensive, diaphorectic, headache, denies loss of vision. drank two large glasses of water and then started to feel better and her pressure increased. neuros intact, clear speech, 2mm bilateral reactive pupils, equal hand grasps, negative arm drift. lungs clear. bp 150/86 sitting up in chair upon arrival. headaceh remains no vision loss. 04/08.
[2023-12-07 12:29] VITALS: BP 140/96; PULSE 71; RESP 16; TEMP 37.2; O2SAT 97
[2023-12-07] MEDS: Lactated Ringers 1,000 ML 100 ML IVCONT (12:38)
--- NOTE | 2023-12-07 13:20 | MHC.SHP ---
Pre-Procedural Eval Section A - 24 Hr Update-Section A only Date of Service: 12/07/23 Section B - Complete if H&P > 30 days Chief Complaint: screening Details of Present Illness: see H&P no changes Relevant Family History (Specify if Yes): No Relevant Social History: None Present Medications: see Short Stay Collaborative assessment Medical History: No relevant PMH History of Previous Operations: No relevant previous surgery Allergies: Allergies Allergy/AdvReac Type Severity Reaction Status Date / Time cefazolin Allergy Intermediate Itching Verified 12/03/23 13:12 celecoxib [From CELEBREX] Allergy Intermediate HIVES Verified 10/04/23 13:56 ciprofloxacin [From CIPRO] Allergy Intermediate HIVES Verified 10/04/23 13:56 clindamycin [CLINDAMYCIN] Allergy Intermediate C-DIF Verified 10/04/23 13:56 hydrochlorothiazide Allergy Intermediate HIVES Verified 10/04/23 13:56 [HYDROCHLOROTHIAZIDE] levofloxacin [From LEVAQUIN] Allergy Intermediate HIVES Verified 10/04/23 13:56 Penicillins [PENICILLINS] Allergy Intermediate HIVES Verified 10/04/23 13:56 Sulfa (Sulfonamide Allergy Intermediate HIVES Verified 10/04/23 13:56 Antibiotics) [SULFA (SULFONAMIDE ANTIBIOTICS)] trimethoprim Allergy Intermediate Angioedema Verified 10/04/23 13:56 phenazopyridine [Pyridium] Allergy Mild Rash Verified 10/04/23 13:56 sulfamethoxazole Allergy Mild rash Verified 11/09/23 10:23 [From Bactrim] vancomycin AdvReac Intermediate Rash Verified 12/03/23 13:12 From TORADOL Allergy Intermediate ? LETHARGY Uncoded 10/04/23 13:56 Review of Systems Sugical H&P ROS: Negative: Constitution, Cardiovascular, Respiratory, Neurological, Psychiatric, Hem-Onc, Allergic/Immunologic, Gastrointestinal, Genitourinary, Musculoskeletal, Integumentary, Endocrine and Eyes/Ears/Nose/Throat Exam Surgical H&P Exam: Normal: HEENT, Normal: Heart, Normal: Lungs, Normal: Extremities, Normal: Abdomen, Normal: Skin and Normal: Neurological Plan Diagnosis/Plan: Unchanged I have reviewed the history and physical and performed a pertinent physical examination on my patient. No changes have occurred unless specified. Time Spent With Patient Time: Total time managing care of this patient today ____ minutes.
[2023-12-07 14:01] VITALS: BP 92/57; PULSE 59; RESP 16; TEMP 36.7; O2SAT 95
[2023-12-07 14:19] VITALS: BP 128/79; PULSE 68; RESP 17; TEMP 36.2; O2SAT 99
--- NOTE | 2023-12-07 23:00 | OP_ITS ---
DATE OF SERVICE: 12/07/2023 SURGEON: Emmanuel Roach MD INDICATIONS: Colon cancer screening. PREOPERATIVE DIAGNOSIS: POSTOPERATIVE DIAGNOSIS: PROCEDURE PERFORMED: Colonoscopy to the terminal ileum. ESTIMATED BLOOD LOSS: COMPLICATIONS: ANESTHESIA: Monitored anesthesia care. ASSISTANTS: SPECIMENS: DESCRIPTION OF PROCEDURE: A history and physical was performed. The risks and benefits of the procedure were explained to the patient. The informed consent was obtained. The patient was placed in the left lateral decubitus position. A digital rectal exam was performed and was found to be normal. The Olympus pediatric video colonoscope was introduced into the rectum and advanced to the cecum. The cecum was identified by transillumination, palpation, and identification of the ileocecal valve. Examination was performed. The scope was removed. She tolerated the procedure well and was returned to the recovery area in stable condition. FINDINGS: The terminal ileum was examined and appeared normal. The visualized colonic mucosa was normal. The quality of the prep was good. There was moderate diverticulosis scattered throughout the colon. Retroflexed examination showed some internal hemorrhoids. No polyps were identified. IMPRESSION: Normal colonoscopy. RECOMMENDATION: 1. Follow up as needed. 2. Repeat colonoscopy is recommended in 5 years for FH colon polyps.. MD DESIRE Gregg/ELOY / [phone] MTDD
== END 2023-12-07 15:00 | disposition home or self-care (01) ==
PROVIDERS: PCP Internal Medicine; Visit Provider Internal Medicine Gastroenterology
PROC: 0DJD8ZZ Inspection of Lower Intestinal Tract, Via Natural or Artificial Opening Endoscopic (ICD-10-PCS; CPT 45378; principal; 2023-12-07 14:50)
DX: Z12.11 Encounter for screening for malignant neoplasm of colon (principal); Z83.719 Family history of colon polyps, unspecified; K57.30 Diverticulosis of large intestine without perforation or abscess without bleeding; K64.8 Other hemorrhoids; K22.4 Dyskinesia of esophagus; I10 Essential (primary) hypertension; E78.5 Hyperlipidemia, unspecified; Q61.5 Medullary cystic kidney; Z87.442 Personal history of urinary calculi; G47.33 Obstructive sleep apnea (adult) (pediatric); Z79.899 Other long term (current) drug therapy
CPT/HCPCS: G0105; J2704

== ENCOUNTER 2024-02-10 10:13 | Outpatient (REF) | payer MEDICARE, OTHER, SELFPAY ==
--- NOTE | ~2024-02-10 | US_ITS ---
EXAMINATION: US RETROPERITONEAL LIMITED (RENAL ONLY) CLINICAL INFORMATION: Medullary cystic kidney. COMPARISON: Renal ultrasound 08/03/2023 and 11/26/2022. X-ray KUB 02/10/2024 and 02/16/2022. TECHNIQUE: Real-time imaging of the kidneys. FINDINGS: RIGHT KIDNEY: 11.5 x 4.3 x 3.9 cm (SAG x AP x TRV). The kidney is normal in size, contour, and echogenicity. Renal cortical thickness is normal. At least 4 echogenic foci are noted throughout the right kidney ranging in size from 4 to 7 mm consistent with nonobstructing calculi. No focal parenchymal lesions or hydronephrosis. LEFT KIDNEY: 10.3 x 3.6 x 3.3 cm (SAG x AP x TRV). The kidney is normal in size, contour, and echogenicity. Renal cortical thickness is normal. There are at least 4 echogenic foci are seen scattered throughout the kidney ranging in size from 4 to 6 mm consistent with nonobstructing calculi. No focal parenchymal lesions or hydronephrosis. US/US renal BI IMPRESSION: Bilateral nonobstructing renal calculi.
--- NOTE | ~2024-02-10 | XR_ITS ---
EXAMINATION: XR ABDOMEN KUB CLINICAL INDICATION: Medullary cystic kidney. COMPARISON: August 03, 2023 renal ultrasound, February 16, 2022 KUB. TECHNIQUE: 2 AP views of the abdomen. FINDINGS: Levoscoliosis of the lumbar spine with multilevel degenerative changes. Mild degenerative changes in bilateral hips and sacroiliac joints. 1.5 cm coarse calcification in the pelvis of indeterminate etiology, possibly representing a calcified fibroid was present on radiograph of February 16, 2022. Redemonstration of dense calcification just to the left of the L2 vertebral body. Moderate amount of stool in the colon. Nonobstructive bowel gas pattern. No definitive radiopaque renal calculi appreciated, although visualization is limited due to overlying bowel. XR/XR KUB IMPRESSION: 1. No definitive radiopaque renal calculi appreciated, although visualization is limited due to overlying bowel. 2. A 1.5 cm coarse calcification in the pelvis of indeterminate etiology, possibly representing a calcified fibroid was present on radiograph of February 16, 2022..
== END 2024-02-10 10:14 | disposition home or self-care (01) ==
LOC: HO.US 10:13
PROVIDERS: PCP Internal Medicine; Visit Provider Urology
DX: Q61.5 Medullary cystic kidney (principal)
CPT/HCPCS: 74018; 76775

== ENCOUNTER 2024-02-22 14:40 | Outpatient (AMB) | payer MEDICARE, OTHER, SELFPAY ==
--- NOTE | 2024-02-22 14:24 | A.OFFVIS_ITS ---
Intake Visit Reasons: Follow up- US/litho/KUB Intake Note: Patient is present for f/u US/Litho/KUB Urology Medication: Vitamin B6. Potassium Antibiotic Allergy:Cipro, Clindamycin, Levofloxacin, Penicillins, Sulfa,Trimethromprim, Vancomycin Blood Thinner:None Allergies cefazolin Allergy (Intermediate, Verified 02/22/24 14:55) Itching celecoxib [From CELEBREX] Allergy (Intermediate, Verified 02/22/24 14:55) HIVES ciprofloxacin [From CIPRO] Allergy (Intermediate, Verified 02/22/24 14:55) HIVES clindamycin [CLINDAMYCIN] Allergy (Intermediate, Verified 02/22/24 14:55) C-DIF hydrochlorothiazide [HYDROCHLOROTHIAZIDE] Allergy (Intermediate, Verified 02/22/24 14:55) HIVES levofloxacin [From LEVAQUIN] Allergy (Intermediate, Verified 02/22/24 14:55) HIVES Penicillins [PENICILLINS] Allergy (Intermediate, Verified 02/22/24 14:55) HIVES Sulfa (Sulfonamide Antibiotics) [SULFA (SULFONAMIDE ANTIBIOTICS)] Allergy (Intermediate, Verified 02/22/24 14:55) HIVES trimethoprim Allergy (Intermediate, Verified 02/22/24 14:55) Angioedema phenazopyridine [Pyridium] Allergy (Mild, Verified 02/22/24 14:55) Rash sulfamethoxazole [From Bactrim] Allergy (Mild, Verified 02/22/24 14:55) rash vancomycin Adverse Reaction (Intermediate, Verified 02/22/24 14:55) Rash From TORADOL Allergy (Intermediate, Uncoded 02/22/24 14:55) ? LETHARGY HPI Comments Details: Juve is a pleasant female. She is a patient of Dr Herron. She is seen for the following urologic conditions - Nephrology - Dr Gonzalez - nephrolithiasis - Medullary sponge kidney Discussed current imaging More stone burden right side stone burden has slurred substantially with combination therapy using potassium citrate, chlorthalidone, vitamin B6 Recently repeated 24 hour urine but results not back Has chlorthalidone from Nephrology 6 month review repeat 24 hour urine and imaging with KUB and ultrasound Nephrolithiasis Patient with medullary sponge kidney who is a chronic stone former with a history of multiple ESWL as the patient does not tolerate stents. Imaging - US 09/19 1.9 cm right renal stone was 0.8 cm left renal stone - 11/17 US right renal stone 1.2 cm, left renal stone 6 mm - 03/19 renal ultrasound bilateral Medullary sponge no clear definitive stones - 12/19 renal ultrasound Medullary sponge kidney 6 mm stones bilateral - 08/20 renal ultrasound Medullary sponge kidney bilateral submucosal calcifications - 07/22 renal ultrasound - bilateral stones Medullary sponge kidney left worse than right - 02/20 renal ultrasound bilateral stones, Medullary sponge kidney, up to 7 mm right, 6 mm left Interventions - 11/17 ESWL left and right side separate. - 12/18 right ureteroscopy - significant amount of imbedded stone material with post pyelonephritis requiring IV antibiotics - 06/19 left ureteroscopy with similar amount of imbedded stone as right side - 01/18 left ureteroscopy with imbedded stone 24 hour urines - 01/17 great urine output, normal calcium, normal oxalate, normal sodium, borderline citrate - 3 L urine output - add potassium citrate - 08/21 good urine output, calcium okay at 01:50, sodium 135 could be around 100, citrate 280 despite supplementation, oxalate 36, pH 7.5 PFSH Medical History PONV (postoperative nausea and vomiting) Herniated disc, cervical Arthritis Back pain Thyroid disease History of colitis Sleep apnea Elevated cholesterol Cervical cancer Renal stones Surgical History (Updated 12/03/23 @ 13:11 by Manuela Lam RN) Hx of fusion of cervical spine Hx of lithotripsy Hx of tonsillectomy Hx of total knee arthroplasty H/O colonoscopy Hx of cystoscopy History of Social History Alcohol intake: never Patient Tobacco Use Status: Never used Tobacco Current occupational status: retired Review of Systems Const Denies chills and Denies fever(s) Card Reports no additional complaints and Denies syncope Resp Denies cough GI Denies abdominal pain and Denies heartburn Reports as per HPI and Denies change in libido Neuro Denies syncope Psych Denies change in libido Endo Denies change in libido Physical Exam Const General: cooperative, healthy appearing, comfortable and no acute distress Orientation/consciousness: patient oriented x3 HEENT Face and sinus: Yes normal facial exam Mouth: moist mucous membranes Neck Neck: Yes normal visual inspection, Yes full ROM and Yes trachea midline Chest Chest palpation & inspection: normal inspection of the chest Resp Effort & Inspection: normal respiratory effort, able to speak in complete sentences and no respiratory distress GI Inspection: Yes normal to inspection Back/Spine/Pelvis Cervical Spine: normal cervical lordosis Thoracic/Lumbar Spine: thoracic and lumbar spine normal to inspection Skin General skin exam: no rashes or lesions noted Neuro General: patient oriented x3, gait normal, tone normal and moves all extremities Extrem General: Yes normal to inspection and Yes capillary refill normal Assessment & Plan Assessment & Plan (1) Medullary sponge kidney: Code(s): Q61.5 - Medullary cystic kidney Category: Medical Plan Six-month follow-up Patient Instructions: Imaging studies, laboratory and physical exam results were discussed and reviewed in detail. No major barriers to patient understanding were identified. An opportunity to ask questions regarding the treatment plan was provided. All questions were answered. The patient expressed understanding and agreement with the above treatment plan. The patient is aware they should contact our office by phone for worsening of their current condition or the appearance of new urologic symptoms. Compliance is encouraged with any medications and followup testing that is ordered. It is a privilege to participate in the urologic care of your patient. If you have any questions or concerns regarding treatment for the above conditions, or other urologic issues, please do not hesitate to contact me. The office telephone contact is [phone]. This note is constructed using voice recognition software. While every effort has been made to ensure accuracy coding tech errors may have been included. Yours sincerely, Dr Beau Cuevas MD, [facility] - Urology Providers of Expert, Compassionate Care for the Genitourinary System Coding Level of Care Code Est Pt Level 4 (06565) Diagnoses Medullary sponge kidney Q61.5
== END 2024-02-22 15:28 | disposition home or self-care (01) ==
PROVIDERS: PCP Internal Medicine; Visit Provider Urology
DX: Q61.5 Medullary cystic kidney (principal)
CPT/HCPCS: 99213

== ENCOUNTER → 2024-02-22 14:40 | Outpatient (BNVA) | payer MEDICARE, OTHER, SELFPAY | PROVIDERS: PCP Internal Medicine; Visit Provider Urology | DX: Q61.5 Medullary cystic kidney (principal) | CPT/HCPCS: 99212 ==

== ENCOUNTER 2024-03-30 09:48 | Outpatient (AMB) | payer MEDICARE, OTHER, SELFPAY ==
--- NOTE | 2024-03-30 09:49 | A.OFFVIS_ITS ---
Intake Visit Reasons: 4w follow up(Litho Results) Intake Note: Patient is Present for Telephone Follow Up Litholink results Urology Med: Vitamin B6, Tamsulosin Antibiotic Allergy: Cipro, Clindamycin, Levofloxacin,Penicillins,Sulfa, Trimethroprim, Vancomycin Blood Thinner:None Repair Service Dispatcher Required: No Allergies cefazolin Allergy (Intermediate, Verified 03/30/24 09:53) Itching celecoxib [From CELEBREX] Allergy (Intermediate, Verified 03/30/24 09:53) HIVES ciprofloxacin [From CIPRO] Allergy (Intermediate, Verified 03/30/24 09:53) HIVES clindamycin [CLINDAMYCIN] Allergy (Intermediate, Verified 03/30/24 09:53) C-DIF hydrochlorothiazide [HYDROCHLOROTHIAZIDE] Allergy (Intermediate, Verified 03/30/24 09:53) HIVES levofloxacin [From LEVAQUIN] Allergy (Intermediate, Verified 03/30/24 09:53) HIVES Penicillins [PENICILLINS] Allergy (Intermediate, Verified 03/30/24 09:53) HIVES Sulfa (Sulfonamide Antibiotics) [SULFA (SULFONAMIDE ANTIBIOTICS)] Allergy (Intermediate, Verified 03/30/24 09:53) HIVES trimethoprim Allergy (Intermediate, Verified 03/30/24 09:53) Angioedema phenazopyridine [Pyridium] Allergy (Mild, Verified 03/30/24 09:53) Rash sulfamethoxazole [From Bactrim] Allergy (Mild, Verified 03/30/24 09:53) rash vancomycin Adverse Reaction (Intermediate, Verified 03/30/24 09:53) Rash From TORADOL Allergy (Intermediate, Uncoded 03/30/24 09:53) ? LETHARGY HPI Comments Details: Juve is a pleasant female. She is a patient of Dr Herron. She is seen for the following urologic conditions - Nephrology - Dr Gonzalez - nephrolithiasis - Medullary sponge kidney Telemedicine Evaluation 15 min Consultation Doximity Eugenia Video attempted Discussed recent 24 hour urine Good urine output, low sodium, low calcium, average oxalate Main issue we talked about was citrate. Despite 60 mEq daily citrate less than 300. She is on maximal tolerated citrate therapy. Previously had tried powder but associated with diarrhea. Continue surveillance imaging More stone burden right side stone burden has slurred substantially with combination therapy using potassium citrate, chlorthalidone, vitamin B6 Has chlorthalidone from Nephrology Nephrolithiasis Patient with medullary sponge kidney who is a chronic stone former with a history of multiple ESWL as the patient does not tolerate stents. Imaging - US 09/19 1.9 cm right renal stone was 0.8 cm left renal stone - 11/17 US right renal stone 1.2 cm, left renal stone 6 mm - 03/19 renal ultrasound bilateral Medullary sponge no clear definitive stones - 12/19 renal ultrasound Medullary sponge kidney 6 mm stones bilateral - 08/20 renal ultrasound Medullary sponge kidney bilateral submucosal calcifications - 07/22 renal ultrasound - bilateral stones Medullary sponge kidney left worse than right - 02/20 renal ultrasound bilateral stones, Medullary sponge kidney, up to 7 mm right, 6 mm left Interventions - 11/17 ESWL left and right side separate. - 12/18 right ureteroscopy - significant amount of imbedded stone material with post pyelonephritis requiring IV antibiotics - 06/19 left ureteroscopy with similar amount of imbedded stone as right side - 01/18 left ureteroscopy with imbedded stone - 10/23 left ureteroscopy with small intubated submucosal stones 24 hour urines - 01/17 great urine output, normal calcium, normal oxalate, normal sodium, borderline citrate - 3 L urine output - add potassium citrate - 08/21 good urine output, calcium okay at 01:50, sodium 135 could be around 100, citrate 280 despite supplementation, oxalate 36, pH 7.5 PFSH Medical History PONV (postoperative nausea and vomiting) Herniated disc, cervical Arthritis Back pain Thyroid disease History of colitis Sleep apnea Elevated cholesterol Cervical cancer Renal stones Surgical History (Updated 12/03/23 @ 13:11 by Manuela Lam RN) Hx of fusion of cervical spine Hx of lithotripsy Hx of tonsillectomy Hx of total knee arthroplasty H/O colonoscopy Hx of cystoscopy History of Social History Alcohol intake: never Patient Tobacco Use Status: Never used Tobacco Current occupational status: retired Review of Systems Const All systems reviewed & are unremarkable except as noted in HPI and below Reports no additional complaints Resp Reports no additional complaints GI Reports no additional complaints Reports as per HPI Musc Reports no additional complaints Physical Exam Telemedicine evaluation Appropriate responses Regular breathing rate and rhythm HEENT Head: Yes normal to inspection Ears: hearing grossly normal bilaterally Eyes General: appearance normal, both eyes and all related structures Neck Neck: Yes normal visual inspection Chest Chest palpation & inspection: normal inspection of the chest Resp Effort & Inspection: normal respiratory effort and able to speak in complete sentences Telehealth Telehealth Telehealth Platform: [employer] Location of provider rendering services: practice address Location of patient: address on file Patient Identification confirmed using: Name, : Yes Telehealth method: video Patient verbally consented to treatment: Yes Patient verbally consented to billing insurance company: Yes Patient informed of any privacy concerns related to visit: Yes Minutes spent on Phone/Video with Pt.: 15 Assessment & Plan Assessment & Plan (1) Medullary sponge kidney: Code(s): Q61.5 - Medullary cystic kidney Category: Medical Plan Six month follow-up Orders: Orders US renal BI 6 Months Q61.5 - Medullary cystic kidney Patient Instructions: Imaging studies, laboratory and physical exam results were discussed and reviewed in detail. No major barriers to patient understanding were identified. An opportunity to ask questions regarding the treatment plan was provided. All questions were answered. The patient expressed understanding and agreement with the above treatment plan. The patient is aware they should contact our office by phone for worsening of their current condition or the appearance of new urologic symptoms. Compliance is encouraged with any medications and followup testing that is ordered. It is a privilege to participate in the urologic care of your patient. If you have any questions or concerns regarding treatment for the above conditions, or other urologic issues, please do not hesitate to contact me. The office telephone contact is [phone]. This note is constructed using voice recognition software. While every effort has been made to ensure accuracy student truck driver errors may have been included. Yours sincerely, Dr Beau Cuevas MD, [facility] - Urology Providers of Expert, Compassionate Care for the Genitourinary System Coding Level of Care Code Tele Est Pt Level 3 (76201) Diagnoses Medullary sponge kidney Q61.5
== END 2024-03-30 10:34 | disposition home or self-care (01) ==
LOC: HO.HUSH 09:48
PROVIDERS: PCP Internal Medicine; Visit Provider Urology
DX: Q61.5 Medullary cystic kidney (principal)
CPT/HCPCS: 99213

== ENCOUNTER → 2024-03-30 09:48 | Outpatient (BNVA) | payer MEDICARE, OTHER, SELFPAY | PROVIDERS: PCP Internal Medicine; Visit Provider Urology ==

== ENCOUNTER 2024-06-21 09:39 | Outpatient (AMB) | payer MEDICARE, OTHER, SELFPAY ==
--- NOTE | 2024-06-21 09:39 | A.OFFVIS_ITS ---
Intake Visit Reasons: discuss procedure Intake Note: Patient is present for Telephone follow up for Procedure Discussion Urology Med: Vitamin B6, Tamsulosin, Potassium Antibiotic Allergy: Cefazosin, Cipro, Clindamycin, Levofloxacin, Penicillins, Sulfa Blood Thinner: None Patient states today that she needs a procedure done sooner than anticipated. Patient reporting pain in left kidney, lots of pressure, and lower back pain. Box Press Operator Required: No Accompanied by: Self / Same As Patient Allergies cefazolin Allergy (Intermediate, Verified 06/21/24 09:39) Itching celecoxib [From CELEBREX] Allergy (Intermediate, Verified 06/21/24 09:39) HIVES ciprofloxacin [From CIPRO] Allergy (Intermediate, Verified 06/21/24 09:39) HIVES clindamycin [CLINDAMYCIN] Allergy (Intermediate, Verified 06/21/24 09:39) C-DIF hydrochlorothiazide [HYDROCHLOROTHIAZIDE] Allergy (Intermediate, Verified 06/21/24 09:39) HIVES levofloxacin [From LEVAQUIN] Allergy (Intermediate, Verified 06/21/24 09:39) HIVES Penicillins [PENICILLINS] Allergy (Intermediate, Verified 06/21/24 09:39) HIVES Sulfa (Sulfonamide Antibiotics) [SULFA (SULFONAMIDE ANTIBIOTICS)] Allergy (Intermediate, Verified 06/21/24 09:39) HIVES trimethoprim Allergy (Intermediate, Verified 06/21/24 09:39) Angioedema phenazopyridine [Pyridium] Allergy (Mild, Verified 06/21/24 09:39) Rash sulfamethoxazole [From Bactrim] Allergy (Mild, Verified 06/21/24 09:39) rash vancomycin Adverse Reaction (Intermediate, Verified 06/21/24 09:39) Rash From TORADOL Allergy (Intermediate, Uncoded 06/21/24 09:39) ? LETHARGY HPI Comments Details: Juve is a pleasant female. She is a patient of Dr Herron. She is seen for the following urologic conditions - Nephrology - Dr Gonzalez - nephrolithiasis - Medullary sponge kidney Telemedicine Evaluation 15 min Consultation Doximity Eugenia Video attempted Pain has been progressing on left side Would like to undergo ureteroscopy - prior ureteroscopy showed small imbedded submucosal stones Recent 24 hour urine Good urine output, low sodium, low calcium, average oxalate Main issue we talked about was citrate. Despite 60 mEq daily citrate less than 300. She is on maximal tolerated citrate therapy. Previously had tried powder but associated with diarrhea. Continue surveillance imaging More stone burden right side stone burden has slowed substantially with combination therapy using potassium citrate, chlorthalidone, vitamin B6 Has chlorthalidone from Nephrology Nephrolithiasis Patient with medullary sponge kidney who is a chronic stone former with a history of multiple ESWL as the patient does not tolerate stents. Imaging - US 09/19 1.9 cm right renal stone was 0.8 cm left renal stone - 11/17 US right renal stone 1.2 cm, left renal stone 6 mm - 03/19 renal ultrasound bilateral Medullary sponge no clear definitive stones - 12/19 renal ultrasound Medullary sponge kidney 6 mm stones bilateral - 08/20 renal ultrasound Medullary sponge kidney bilateral submucosal calcifications - 07/22 renal ultrasound - bilateral stones Medullary sponge kidney left worse than right - 02/20 renal ultrasound bilateral stones, Medullary sponge kidney, up to 7 mm right, 6 mm left Interventions - 11/17 ESWL left and right side separate. - 12/18 right ureteroscopy - significant amount of imbedded stone material with post pyelonephritis requiring IV antibiotics - 06/19 left ureteroscopy with similar amount of imbedded stone as right side - 01/18 left ureteroscopy with imbedded stone - 10/23 left ureteroscopy with small imbedded submucosal stones 24 hour urines - 01/17 great urine output, normal calcium, normal oxalate, normal sodium, borderline citrate - 3 L urine output - add potassium citrate - 08/21 good urine output, calcium okay at 01:50, sodium 135 could be around 100, citrate 280 despite supplementation, oxalate 36, pH 7.5 PFSH Medical History PONV (postoperative nausea and vomiting) Herniated disc, cervical Arthritis Back pain Thyroid disease History of colitis Sleep apnea Elevated cholesterol Cervical cancer Renal stones Surgical History Hx of fusion of cervical spine Hx of lithotripsy Hx of tonsillectomy Hx of total knee arthroplasty H/O colonoscopy Hx of cystoscopy History of Social History Alcohol intake: never Patient Tobacco Use Status: Never used Tobacco Current occupational status: retired Review of Systems Const All systems reviewed & are unremarkable except as noted in HPI and below Reports no additional complaints Resp Reports no additional complaints GI Reports no additional complaints Reports as per HPI Musc Reports no additional complaints Physical Exam Telemedicine evaluation Appropriate responses Regular breathing rate and rhythm HEENT Head: Yes normal to inspection Ears: hearing grossly normal bilaterally Eyes General: appearance normal, both eyes and all related structures Neck Neck: Yes normal visual inspection Chest Chest palpation & inspection: normal inspection of the chest Resp Effort & Inspection: normal respiratory effort and able to speak in complete se ntences Telehealth Telehealth Telehealth Platform: [employer] Location of provider rendering services: practice address Location of patient: address on file Patient Identification confirmed using: Name, : Yes Telehealth method: video Patient verbally consented to treatment: Yes Patient verbally consented to billing insurance company: Yes Patient informed of any privacy concerns related to visit: Yes Minutes spent on Phone/Video with Pt.: 15 Assessment & Plan Assessment & Plan (1) Medullary sponge kidney: Code(s): Q61.5 - Medullary cystic kidney Category: Medical Plan Ureteroscopy We discussed the nature of the decision and reasonable alternatives for performing ureteroscopy. Options such as medical therapy were discussed. Interventions include chemical dissolution, ESWL, ureteroscopy with laser lithotripsy and stent placement, PCNL. The relative uncertainties and benefits related to each alternate procedure were adequately discussed. General surgical risks including, but not limited to - pain, bleeding, infection, myocardial infarction, pulmonary embolus, deep vein thrombosis and cerebrovascular accident which may result in further hospitalization were discussed. Full disclosure of the procedure as well as all major risks, benefits and complications were discussed including but not limited to damage to the urethra, bladder and kidney infection, damage to the ureter, stent migration or malposition, scarring to the renal pelvis, remnant stone fragments, subsequent stone passage with need for secondary procedures. The overall secondary procedure rate is approximately 10-15%. The overall clearance rate is approximately 90-95%. Success of the procedure in the short-term does not necessarily guarantee that long-term success will be maintained. Suitable follow up will need to be maintained. The patient showed understanding of discussion and wishes to proceed with - cystoscopy, retrograde, ureteroscopy, possible lithotripsy/stone basketing and stent on the left side Patient Instructions: Imaging studies, laboratory and physical exam results were discussed and reviewed in detail. No major barriers to patient understanding were identified. An opportunity to ask questions regarding the treatment plan was provided. All questions were answered. The patient expressed understanding and agreement with the above treatment plan. The patient is aware they should contact our office by phone for worsening of their current condition or the appearance of new urologic symptoms. Compliance is encouraged with any medications and followup testing that is ordered. It is a privilege to participate in the urologic care of your patient. If you have any questions or concerns regarding treatment for the above conditions, or other urologic issues, please do not hesitate to contact me. The office telephone contact is [phone]. This note is constructed using voice recognition software. While every effort has been made to ensure accuracy restoration ecologist errors may have been included. Yours sincerely, Dr Beau Cuevas MD, [facility] - Urology Providers of Expert, Compassionate Care for the Genitourinary System Coding Level of Care Code Tele Est Pt Level 4 (93841) Diagnoses Medullary sponge kidney Q61.5
== END 2024-06-21 10:34 | disposition home or self-care (01) ==
LOC: HO.HUSH 09:39
PROVIDERS: PCP Internal Medicine; Visit Provider Urology
DX: Q61.5 Medullary cystic kidney (principal)
CPT/HCPCS: 99214

== ENCOUNTER → 2024-06-21 09:39 | Outpatient (BNVA) | payer MEDICARE, OTHER, SELFPAY | PROVIDERS: PCP Internal Medicine; Visit Provider Urology ==

== ENCOUNTER 2024-06-26 12:07 | Day surgery (SDC) | payer MEDICARE, OTHER, SELFPAY ==
[2024-06-26 13:08] VITALS: BP 147/85; PULSE 73; RESP 14; TEMP 36.7; O2SAT 98; BMI 33.0
[2024-06-26] MEDS: Lactated Ringers 1,000 ML 50 ML IVCONT (13:15)
--- NOTE | 2024-06-26 13:56 | P.CONAN_ITS ---
HPI - Anesthesia Eval Consult details Narrative: 69 yo female patient for Cystoscopy, Ureteroscopy, Retro, laser, stent Left ureter PMFSH Active Problems Active Problems: All Active Problems Right knee pain (Acute) Medullary sponge kidney (Acute) Renal stones (Acute) FRANK. Not needed CPAP recently Past Medical History Medical History PONV (postoperative nausea and vomiting) Herniated disc, cervical Arthritis Back pain Thyroid disease History of colitis Sleep apnea Elevated cholesterol Cervical cancer Renal stones Family History Family history of problems with anesthesia: No Surgical History Surgical History Hx of fusion of cervical spine Hx of lithotripsy Hx of tonsillectomy Hx of total knee arthroplasty H/O colonoscopy Hx of cystoscopy History of History of Problems with Anesthesia: Yes Social History Social History Are you a primary career transition specialist to a significant other at home: No Do you presently have visiting nurse or other home services: No Alcohol intake: never Patient Tobacco Use Status: Never used Tobacco Use of substances other than those prescribed or required for medical reasons: No Have you been hit, kicked, punched, or otherwise hurt by someone within the past year? If so, by whom?: No Are you DNR?: No Advance Directives: No Advance Directives Information Provided: Yes Recently lost weight without trying: No Nutrition Risks: No Nutritional Risk Patient : No Current occupational status: retired Meds Allergies Allergy/AdvReac Type Severity Reaction Status Date / Time cefazolin Allergy Intermediate Itching Verified 06/26/24 12:41 celecoxib [From CELEBREX] Allergy Intermediate HIVES Verified 06/26/24 12:41 ciprofloxacin [From CIPRO] Allergy Intermediate HIVES Verified 06/26/24 12:41 clindamycin [CLINDAMYCIN] Allergy Intermediate C-DIF Verified 06/26/24 12:41 hydrochlorothiazide Allergy Intermediate HIVES Verified 06/26/24 12:41 [HYDROCHLOROTHIAZIDE] levofloxacin [From LEVAQUIN] Allergy Intermediate HIVES Verified 06/26/24 12:41 Penicillins [PENICILLINS] Allergy Intermediate HIVES Verified 06/26/24 12:41 Sulfa (Sulfonamide Allergy Intermediate HIVES Verified 06/26/24 12:41 Antibiotics) [SULFA (SULFONAMIDE ANTIBIOTICS)] trimethoprim Allergy Intermediate Angioedema Verified 06/26/24 12:41 phenazopyridine [Pyridium] Allergy Mild Rash Verified 06/26/24 12:41 sulfamethoxazole Allergy Mild rash Verified 06/26/24 12:41 [From Bactrim] vancomycin AdvReac Intermediate Rash Verified 06/26/24 12:41 From TORADOL Allergy Intermediate ? LETHARGY Uncoded 06/21/24 09:39 Active Medications: Current Medications Lactated Ringer's (Lr) 1,000 mls @ 50 mls/hr IVCONT .Q20H MARIE Last Admin: 06/26/24 13:15 Dose: 50 mls/hr Home Medications ?Medication ?Instructions ?Recorded ?Confirmed ?Last Taken ?Type chlorthalidone 25 mg tablet 1 tab PO DAILY 09/26/20 12/03/23 06/25/24 History levothyroxine 25 mcg tablet 25 mcg PO DAILY 09/26/20 12/03/23 06/26/24 History pravastatin 40 mg tablet 1 tab PO DAILY 09/26/20 12/03/23 06/25/24 History COVID-19 antigen test (Flowflex #1 ea 03/24/22 11/09/23 06/25/24 History COVID-19 Antigen Home Test kit) acetaminophen 325 mg capsule 325 mg PO 12/07/23 06/26/24 History Exam Height,Weight and Vital Signs: Height 5 ft 4 in Weight 87.09 kg Last Vital Signs Temp 98.1 F 06/26/24 13:08 Pulse 73 06/26/24 13:08 Resp 14 06/26/24 13:08 BP 147/85 H 06/26/24 13:08 Pulse Ox 98 06/26/24 13:08 O2 Del Method Room Air 06/26/24 13:08 Airway Mallampati Class: III TM Dist: >3cm Neck ROM: Full (C5-6 fusion) Loose/Missing/Broken Teeth: No (Crowns intact) Heart: RRR Lungs: CTAB Assessment and Plan Assessment Anesthesia Assessment: Anesthesia Plan Discussed and Chart Reviewed Final Anesthetic Review Family History of Problems with Anesthesia: No History of Problems with Anesthesia: Yes NPO: Yes ASA Class: III Final Preanesthetic Review: No Changes in Pt Med Stat, Meds/Allgs Chart Reviewed, Consent Obtained/Reviewed and Anes Risks/Benef Reviewed Patient Risk: Intermediate Procedure Risk: Low Assessment/Block/Sedation in SS: Assess/Block/Sedation-SS Anesthetic Plan Anesthetic Plan: GA Disposition: Standard PACU
--- NOTE | 2024-06-26 14:05 | MHC.SHP ---
Pre-Procedural Eval Section A - 24 Hr Update-Section A only Date of Service: 06/26/24 The patient is an INPATIENT: No Changes since office visit: No Cold of Flu in the past 2 weeks, No New Medical Problems, No Changes in Medication and No Patient answered all questions The patient has been examined within 24 hours of the surgical procedure. The History & Physical has been completed within 30 days and I have reviewed it.: No Section B - Complete if H&P > 30 days Chief Complaint: Medullary cystic kidney Details of Present Illness: Cystoscopy, left retrograde, left ureteroscopy with laser lithotripsy stent placement Called because has had recurrent pain Relevant Family History (Specify if Yes): No Relevant Social History: None Present Medications: see Short Stay Collaborative assessment Medical History: No relevant PMH History of Previous Operations: Relevant previous surgery/procedure and date(s) Allergies: Allergies Allergy/AdvReac Type Severity Reaction Status Date / Time cefazolin Allergy Intermediate Itching Verified 06/26/24 12:41 celecoxib [From CELEBREX] Allergy Intermediate HIVES Verified 06/26/24 12:41 ciprofloxacin [From CIPRO] Allergy Intermediate HIVES Verified 06/26/24 12:41 clindamycin [CLINDAMYCIN] Allergy Intermediate C-DIF Verified 06/26/24 12:41 hydrochlorothiazide Allergy Intermediate HIVES Verified 06/26/24 12:41 [HYDROCHLOROTHIAZIDE] levofloxacin [From LEVAQUIN] Allergy Intermediate HIVES Verified 06/26/24 12:41 Penicillins [PENICILLINS] Allergy Intermediate HIVES Verified 06/26/24 12:41 Sulfa (Sulfonamide Allergy Intermediate HIVES Verified 06/26/24 12:41 Antibiotics) [SULFA (SULFONAMIDE ANTIBIOTICS)] trimethoprim Allergy Intermediate Angioedema Verified 06/26/24 12:41 phenazopyridine [Pyridium] Allergy Mild Rash Verified 06/26/24 12:41 sulfamethoxazole Allergy Mild rash Verified 06/26/24 12:41 [From Bactrim] vancomycin AdvReac Intermediate Rash Verified 06/26/24 12:41 From TORADOL Allergy Intermediate ? LETHARGY Uncoded 06/21/24 09:39 Review of Systems Sugical H&P ROS: Negative: Constitution, Cardiovascular, Respiratory, Neurological, Psychiatric, Hem-Onc, Allergic/Immunologic, Gastrointestinal, Genitourinary, Musculoskeletal, Integumentary, Endocrine and Eyes/Ears/Nose/Throat Exam Surgical H&P Exam: Normal: HEENT, Normal: Heart, Normal: Lungs, Normal: Extremities, Normal: Abdomen, Normal: Skin and Normal: Neurological Plan Diagnosis/Plan: Unchanged (Cystoscopy, left retrograde, left ureteroscopy with laser lithotripsy stent placement) I have reviewed the history and physical and performed a pertinent physical examination on my patient. No changes have occurred unless specified. Time Spent With Patient Time: Total time managing care of this patient today ____ minutes.
--- NOTE | 2024-06-26 14:36 | W.PM.OPN ---
Operative Note Operative Note Date of Service: 06/26/24 Narrative: PreOperative Diagnosis: Medullary sponge kidney with pain on left side Post Operative Diagnosis: Kidney stones, Medullary sponge kidney Procedure: - cystoscopy, left retrograde - left dilatation of ureteric orifice under fluoroscopy - left ureteroscopy, laser lithotripsy, stone basketing - left stent placement Surgeon: Dr Beau Cuevas Anesthesia: General Indications for procedure: Medullary sponge kidney. Persistent pain left side. Multiple stones or kidney on various imaging modalities. Procedure: After informed consent was verified patient was brought to the operating placed in supine position. Anesthesia was administered per protocol. Patient was placed in modified dorsal lithotomy position and prepped and draped in a sterile fashion. Safety pause time-out and side of surgery confirmed. Antibiotics confirmed. 22 [place] cystoscope was inserted per urethra. Bladder was normal in its entirety. Both ureteric orifices were in normal position. The left ureteric orifice was cannulated and a retrograde examination was performed. No filling defects seen of ureter or renal pelvis. A Sensor guidewire was placed up to the level of the renal pelvis under fluoroscopy. The rigid cystoscope was removed and the inner cannula of ureteric access sheath was used under fluoroscopy to dilate the ureteric orifice. The ureteric access sheath was placed and the inner cannula with access wire removed. The digital flexible ureteral scope was placed. The for main calices of the kidney were examined. In each calyx there were many small submucosal stones. Using the holmium laser fiber submucosal stones were lasered throughout the kidney. There was a fair amount of small debris that was released. This will easily pass around a stent. At the completion of the stone procedure a Sensor wire was placed back into the renal pelvis. A 6 [place] by 22 cm double-J stent was placed into the renal pelvis and bladder under a combination of fluoroscopy and direct visualization. The symphisis pubis was used as a radiographic marker to release the stent and good coil was seen within the bladder confirming position The bladder was emptied. The patient tolerated the procedure well and was extubated in the operating room, and transferred in stable condition to the recovery area. Pathology: Drains: Stent as above [facility] cystourethroscopy, with ureteroscopy and/or pyeloscopy, with lithotripsy, and ureteral catheterization for steerable vacuum aspiration of the kidney, collecting system, ureter, bladder, and urethra if applicable (must use a steerable ureteral catheter).
[2024-06-26 14:48] VITALS: BP 127/71; PULSE 57; RESP 12; TEMP 36.1; O2SAT 98
[2024-06-26 14:50] VITALS: BP 131/79; PULSE 54; RESP 12; O2SAT 98
[2024-06-26 14:55] VITALS: BP 134/77; PULSE 54; RESP 12; O2SAT 98
[2024-06-26 15:00] VITALS: BP 146/83; PULSE 61; RESP 12; O2SAT 98
[2024-06-26 15:14] VITALS: BP 146/78; PULSE 57; RESP 12; TEMP 36.1; O2SAT 98
== END 2024-06-26 15:48 | disposition home or self-care (01) ==
PROVIDERS: PCP Internal Medicine; Visit Provider Urology
PROC: (CPT 52356; principal; 2024-06-26 14:20)
DX: Q61.5 Medullary cystic kidney (principal); N20.0 Calculus of kidney; M54.50 Low back pain, unspecified; G47.33 Obstructive sleep apnea (adult) (pediatric); Z79.899 Other long term (current) drug therapy; Z88.0 Allergy status to penicillin; Z88.1 Allergy status to other antibiotic agents; Z88.2 Allergy status to sulfonamides; Z88.8 Allergy status to other drugs, medicaments and biological substances; Z98.890 Other specified postprocedural states
CPT/HCPCS: 52356; C1758; C1769; C1894; C2617; J1100; J1580; J2003; J2250; J2405; J2704; J3010; Q9967

== ENCOUNTER → 2024-06-26 12:07 | Outpatient (BNV) | payer MEDICARE, OTHER, SELFPAY | PROVIDERS: PCP Internal Medicine; Visit Provider Urology | DX: N20.0 Calculus of kidney (principal); Q61.5 Medullary cystic kidney | CPT/HCPCS: 52356; 74420 ==

== ENCOUNTER 2024-07-06 13:28 | Outpatient (AMB) | payer MEDICARE, OTHER, SELFPAY ==
--- NOTE | 2024-07-06 13:31 | A.OFFVIS_ITS ---
Intake Visit Reasons: Stent removal Intake Note: Patient is Present for Cystoscopy/Stent Removal Urology Med: none Antibiotic Allergy: Vancomycin, Sulfa, Bactrim, Trimethroprim, Penicillin, Levofloxacin, Clindamycin Blood Thinner:None URO- G Disposable Cystoscope lot: [id number] exp:09/30/2026 Allergies cefazolin Allergy (Intermediate, Verified 06/26/24 12:41) Itching celecoxib [From CELEBREX] Allergy (Intermediate, Verified 06/26/24 12:41) HIVES ciprofloxacin [From CIPRO] Allergy (Intermediate, Verified 06/26/24 12:41) HIVES clindamycin [CLINDAMYCIN] Allergy (Intermediate, Verified 06/26/24 12:41) C-DIF hydrochlorothiazide [HYDROCHLOROTHIAZIDE] Allergy (Intermediate, Verified 06/26/24 12:41) HIVES levofloxacin [From LEVAQUIN] Allergy (Intermediate, Verified 06/26/24 12:41) HIVES Penicillins [PENICILLINS] Allergy (Intermediate, Verified 06/26/24 12:41) HIVES Sulfa (Sulfonamide Antibiotics) [SULFA (SULFONAMIDE ANTIBIOTICS)] Allergy (Intermediate, Verified 06/26/24 12:41) HIVES trimethoprim Allergy (Intermediate, Verified 06/26/24 12:41) Angioedema phenazopyridine [Pyridium] Allergy (Mild, Verified 06/26/24 12:41) Rash sulfamethoxazole [From Bactrim] Allergy (Mild, Verified 06/26/24 12:41) rash vancomycin Adverse Reaction (Intermediate, Verified 06/26/24 12:41) Rash From TORADOL Allergy (Intermediate, Uncoded 06/21/24 09:39) ? LETHARGY HPI Comments Details: Juve is a pleasant female. She is a patient of Dr Herron. She is seen for the following urologic conditions - Nephrology - Dr Gonzalez - nephrolithiasis - Medullary sponge kidney Here for stent removal - ureteroscopy had showed small imbedded submucosal stones Continue with vitamin B6, citrate, lemon juice, chlorthalidone Prior 24 hour urine Good urine output, low sodium, low calcium, average oxalate Main issue we talked about was citrate. Despite 60 mEq daily citrate less than 300. She is on maximal tolerated citrate therapy. Previously had tried powder but associated with diarrhea. Continue surveillance imaging More stone burden right side stone burden has slowed substantially with combination therapy using potassium citrate, chlorthalidone, vitamin B6 Has chlorthalidone from Nephrology Nephrolithiasis Patient with medullary sponge kidney who is a chronic stone former with a history of multiple ESWL as the patient does not tolerate stents. Imaging - US 09/19 1.9 cm right renal stone was 0.8 cm left renal stone - 11/17 US right renal stone 1.2 cm, left renal stone 6 mm - 03/19 renal ultrasound bilateral Medullary sponge no clear definitive stones - 12/19 renal ultrasound Medullary sponge kidney 6 mm stones bilateral - 08/20 renal ultrasound Medullary sponge kidney bilateral submucosal calcifications - 07/22 renal ultrasound - bilateral stones Medullary sponge kidney left worse than right - 02/20 renal ultrasound bilateral stones, Medullary sponge kidney, up to 7 mm right, 6 mm left Interventions - 11/17 ESWL left and right side separate. - 12/18 right ureteroscopy - significant amount of imbedded stone material with post pyelonephritis requiring IV antibiotics - 06/19 left ureteroscopy with similar amount of imbedded stone as right side - 01/18 left ureteroscopy with imbedded stone - 10/23 left ureteroscopy with small imbedded submucosal stones 24 hour urines - 01/17 great urine output, normal calcium, normal oxalate, normal sodium, borderline citrate - 3 L urine output - add potassium citrate - 08/21 good urine output, calcium okay at 01:50, sodium 135 could be around 100, citrate 280 despite supplementation, oxalate 36, pH 7.5 PFSH Medical History PONV (postoperative nausea and vomiting) Herniated disc, cervical Arthritis Back pain Thyroid disease History of colitis Sleep apnea Elevated cholesterol Cervical cancer Renal stones Surgical History Hx of fusion of cervical spine Hx of lithotripsy Hx of tonsillectomy Hx of total knee arthroplasty H/O colonoscopy Hx of cystoscopy History of Social History Are you a primary child care center assistant director to a significant other at home: No Do you presently have visiting nurse or other home services: No Alcohol intake: never Patient Tobacco Use Status: Never used Tobacco Current occupational status: retired Review of Systems Const Denies chills and Denies fever(s) Card Reports no additional complaints and Denies syncope Resp Denies cough GI Denies abdominal pain and Denies heartburn Reports as per HPI and Denies change in libido Neuro Denies syncope Psych Denies change in libido Endo Denies change in libido Physical Exam Const General: cooperative, healthy appearing, comfortable and no acute distress Orientation/consciousness: patient oriented x3 HEENT Face and sinus: Yes normal facial exam Mouth: moist mucous membranes Neck Neck: Yes normal visual inspection, Yes full ROM and Yes trachea midline Chest Chest palpation & inspection: normal inspection of the chest Resp Effort & Inspection: normal respiratory effort, able to speak in complete sentences and no respiratory distress GI Inspection: Yes normal to inspection Back/Spine/Pelvis Cervical Spine: normal cervical lordosis Thoracic/Lumbar Spine: thoracic and lumbar spine normal to inspection Skin General skin exam: no rashes or lesions noted Neuro General: patient oriented x3, gait normal, tone normal and moves all extremities Extrem General: Yes normal to inspection and Yes capillary refill normal Office Procedures Cystoscopy Consent Discussed risk and benefit or proposed procedure with the patient. Information consent for procedure given to the patient. Discussed technical aspects, risks, benefits and alternatives in full. Addressed all of the patient's questions and concerns regarding the procedure. The patient demonstrated knowledge and understanding. They wish to proceed with this procedure. Preparation The patient was prepped in the usual manner. A open winder was present and in the room. Genitalia was prepped with betadine solution in a sterile manner. Lidocaine Jelly 2% was placed into the urethra and 16Fr flexible Olympus cystoscope was inserted into the meatus after adequate lubrication. Procedure A well lubricated 16 Faroese cystoscope was placed No abnormality noted of urethra during placement Indwelling stent seen within bladder emerging from left ureteric orifices The stent was grasped with a 3 prong grasper and removed without difficulty The patient tolerated the procedure well [id number] with stent removal DISPOSABLE SCOPE URO-G FLEXIBLE SCOPE Procedure code (CPT) selection complete Office Meds lidocaine HCl 2 % mucosal jelly in applicator Performing Provider: Beau Cuevas MD Performing Location: [facility] [place] [facility] Administered by: Casey Apple LPN on 07/06/24 13:44 Dose Route Admin Location Dispensed Lot Number Expiration Date [facility] [employer] 10 mL intra-urethral 10 mL nitrofurantoin monohydrate/macrocrystals 100 mg capsule Performing Provider: Beau Cuevas MD Performing Location: [facility] [place] [facility] Administered by: Casey Apple LPN on 07/06/24 13:44 Dose Route Admin Location Dispensed Lot Number Expiration Date [employer] 100 mg PO 1 cap naproxen 500 mg tablet Performing Provider: Beau Cuevas MD Performing Location: [facility] [place] [facility] Documented (not given) by: Casey Apple LPN on 07/06/24 13:44 Reason Not Given: Patient Refused Results AMB Urinalysis, Automated UA Leukoctes 70 Melany/uL Last Edit by Kalyn Elizondo [facility] on 07/06/24 13:46 UA Nitrite Negative Last Edit by Kalyn Elizondo [facility] on 07/06/24 13:46 UA Urobilinogen 0.2 mg/dL Last Edit by Kalyn Elizondo A on 07/06/24 13:4 6 UA Protein 0 mg/dL Last Edit by Kalyn Elizondo [facility] on 07/06/24 13:46 UA pH 7.5 Last Edit by Kalyn Elizondo A on 07/06/24 13:46 UA Blood 0 Jonathan/uL Last Edit by Kalyn Elizondo [facility] on 07/06/24 13:46 UA Specific Gonzales 1.010 Last Edit by Kalyn Elizondo A on 07/06/24 13: 46 UA Ketone Negative Last Edit by Kalyn Elizondo A on 07/06/24 13:46 UA Bilirubin 0 mg/dL Last Edit by Kalyn Elizondo A on 07/06/24 13:46 UA Glucose 0 mg/dL Last Edit by Kalyn Elizondo [facility] on 07/06/24 13:46 Results Reviewed Results Reviewed: Laboratory Last Values Urine pH (Auto) 7.5 07/06/24 13:35 Specific Gonzales (Auto) 1.010 07/06/24 13:35 Urine Protein (Auto) 0 mg/dL 07/06/24 13:35 Glucose (UA)(Auto) 0 mg/dL 07/06/24 13:35 Urine Ketones (Auto) Negative 07/06/24 13:35 Urine Blood (Auto) 0 Jonathan/uL 07/06/24 13:35 Urine Nitrite (Auto) Negative 07/06/24 13:35 Urine Bilirubin (Auto) 0 mg/dL 07/06/24 13:35 Urine Urobilinogen (Auto) 0.2 mg/dL 07/06/24 13:35 Leukocyte Esterase (Auto) 70 Melany/uL 07/06/24 13:35 Assessment & Plan Assessment & Plan (1) Medullary sponge kidney: Code(s): Q61.5 - Medullary cystic kidney Category: Medical Plan Six-month follow-up imaging Orders: Orders AMB Cystoscopy Today N20.0 - Calculus of kidney AMB Urinalysis Automated Today Z13.9 - Encounter for screening, unspecified Medications: Refilled pyridoxine (vitamin B6) (Vitamin B-6) 100 mg PO DAILY 90 days 90 tabs 2RF potassium citrate ER 20 mEq (2 x 10 mEq (1,080 mg)) PO TID 90 days 540 tabs 1RF Q61.5 - Medullary cystic kidney Patient Instructions: Imaging studies, laboratory and physical exam results were discussed and reviewed in detail. No major barriers to patient understanding were identified. An opportunity to ask questions regarding the treatment plan was provided. All questions were answered. The patient expressed understanding and agreement with the above treatment plan. The patient is aware they should contact our office by phone for worsening of their current condition or the appearance of new urologic symptoms. Compliance is encouraged with any medications and followup testing that is ordered. It is a privilege to participate in the urologic care of your patient. If you have any questions or concerns regarding treatment for the above conditions, or other urologic issues, please do not hesitate to contact me. The office telephone contact is [phone]. This note is constructed using voice recognition software. While every effort has been made to ensure accuracy engineer assistant errors may have been included. Yours sincerely, Dr Beau Cuevas MD, [facility] - Urology Providers of Expert, Compassionate Care for the Genitourinary System Coding Level of Care Code Est Pt Level 3 (50220) Diagnoses Medullary sponge kidney Q61.5 CPT Codes Cystoscopy - CPT: 56168-Auijaicynl with stent removal ([id number])
== END 2024-07-06 14:26 | disposition home or self-care (01) ==
LOC: HO.HUSH 13:29
PROVIDERS: PCP Internal Medicine; Visit Provider Urology
DX: N20.0 Calculus of kidney (principal); Q61.5 Medullary cystic kidney
CPT/HCPCS: 52310

== ENCOUNTER → 2024-07-06 13:28 | Outpatient (BNVA) | payer MEDICARE, OTHER, SELFPAY | PROVIDERS: PCP Internal Medicine; Visit Provider Urology | DX: Q61.5 Medullary cystic kidney (principal); N20.0 Calculus of kidney | CPT/HCPCS: 52310; 81003 ==

== ENCOUNTER 2024-11-07 09:33 | Outpatient (AMB) | payer MEDICARE, OTHER, SELFPAY ==
[2024-11-07 09:49] VITALS: BMI 33.0
--- NOTE | 2024-11-07 09:49 | MHC.OFFVIS ---
Vital Signs 11/07/24 09:49 Height 5 ft 4 in Weight 192 lb BMI 33.0 Intake Visit Reasons: OV - Left TKA 2018 Intake Note: Juve is a 69 year old female who presents complaints of mild intermittent discomfort in her left knee after undergoing left total knee replacement surgery in 2018. She continues to walk up to [address] [employer] for exercise. She denies any fevers or chills. She does not take any medicines for her discomfort. Allergies cefazolin Allergy (Intermediate, Verified 11/07/24 09:49) Itching celecoxib [From CELEBREX] Allergy (Intermediate, Verified 11/07/24 09:49) HIVES ciprofloxacin [From CIPRO] Allergy (Intermediate, Verified 11/07/24 09:49) HIVES clindamycin [CLINDAMYCIN] Allergy (Intermediate, Verified 11/07/24 09:49) C-DIF hydrochlorothiazide [HYDROCHLOROTHIAZIDE] Allergy (Intermediate, Verified 11/07/24 09:49) HIVES levofloxacin [From LEVAQUIN] Allergy (Intermediate, Verified 11/07/24 09:49) HIVES Penicillins [PENICILLINS] Allergy (Intermediate, Verified 11/07/24 09:49) HIVES Sulfa (Sulfonamide Antibiotics) [SULFA (SULFONAMIDE ANTIBIOTICS)] Allergy (Intermediate, Verified 11/07/24 09:49) HIVES trimethoprim Allergy (Intermediate, Verified 11/07/24 09:49) Angioedema phenazopyridine [Pyridium] Allergy (Mild, Verified 11/07/24 09:49) Rash sulfamethoxazole [From Bactrim] Allergy (Mild, Verified 11/07/24 09:49) rash vancomycin Adverse Reaction (Intermediate, Verified 11/07/24 09:49) Rash From TORADOL Allergy (Intermediate, Uncoded 11/07/24 09:49) ? LETHARGY bactrim Allergy (Unknown, Uncoded 11/07/24 10:13) Unknown Medication List - Last Reconciled 11/08/24 by Aleksander Jang MD acetaminophen 325 mg PO chlorthalidone 1 tab PO DAILY COVID-19 antigen test (Flowflex COVID-19 Antigen Home Test kit) As directed levothyroxine 25 mcg PO DAILY potassium citrate ER 20 mEq (2 x 10 mEq (1,080 mg)) PO TID 90 days pravastatin 1 tab PO DAILY prochlorperazine maleate 10 mg PO TID PRN 30 days pyridoxine (vitamin B6) (Vitamin B-6) 100 mg PO DAILY 90 days tamsulosin 0.4 mg PO BEDTIME 14 days tramadol 50 mg PO Q6H PRN trimethoprim 100 mg PO Q12H 5 days PFSH Medical History PONV (postoperative nausea and vomiting) Herniated disc, cervical Arthritis Back pain Thyroid disease History of colitis Sleep apnea Elevated cholesterol Cervical cancer Renal stones Surgical History Hx of fusion of cervical spine Hx of lithotripsy Hx of tonsillectomy Hx of total knee arthroplasty H/O colonoscopy Hx of cystoscopy History of Social History Are you a primary home day care provider to a significant other at home: No Do you presently have visiting nurse or other home services: No Alcohol intake: never Patient Tobacco Use Status: Never used Tobacco Current occupational status: retired Physical Exam Vital Signs: BMI result Body Mass Index 33.0 Const Other: Well-nourished well-developed very friendly female awake alert and oriented x3 in no acute distress Extrem Other: Bilateral lower extremity examination shows good capillary refill, no skin lesions noted, normal sensation light touch Left knee examination shows that the surgical incision is well healed, no erythema, full active extension and flexion to 120 degrees, her patella tracks well Results Reviewed Results Reviewed: X-rays of the patient's left knee show a total knee arthroplasty in good position with no signs of loosening, no acute bony abnormalities Assessment & Plan Assessment & Plan (1) History of left knee replacement: Code(s): Z96.652 - Presence of left artificial knee joint Category: Medical Plan Ms. Licona continues to do very well after undergoing left total knee replacement surgery. She will continue with her home exercise program. She does know to take antibiotics before any dental work. She will contact me prior to her annual follow-up appointment should any questions or concerns arise. Feel free to call me at any time should questions regarding her orthopedic management arise. I spent 22 minutes in reviewing the patient's records and imaging studies, seeing the patient and documenting in the medical record. Orders: Orders XR knee LT 3V 11/07/24 M25.562 - Pain in left knee Coding Level of Care Code Est Pt Level 3 (36743) Complex EM visit Add On G2211 Diagnoses History of left knee replacement Z96.652
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
--- OUTSIDE RECORDS SUMMARY | 2024-11-07 10:49 | XMS_ITS | Data Portability ---
Author Organization [place] [facility] Elias Ziegler [place] Address [address] [facility] [address] [place] [address] Care Team Providers Care Tattoo Designer Name Role Phone JOSE NESBITT Referring Provider Assessment Encounter Date Assessment Date Assessment LastModified by Organization Details LastModified Time 04/15/2023 04/15/2023 Pleasant 67-year-old female status post left total knee arthroplasty by Dr. Jang on 01/03/2018. Patient appears to be doing well clinically. She will continue with her stretching exercise regimen. She no longer needs to take antibiotic prophylaxis from a orthopedic standpoint. However if her dentist wishes her to continue they can take over management. We will see her back in 5 years time for reevaluation. I did review her radiographs with her in detail. Should she have any other orthopedic needs should they arise she should contact her office for the proper specialist referral. She agrees with the above-noted plan. Indirect care and treatment in conjunction with Dr. Hooks Additional treatment plan discussed with the patient in detail included the following; - Provider focused nonsteroidal anti-inflammator y regimen (discussed were the pros, cons, benefits and risks as well as any black box warnings) in patients over 60 years old they should be very cautious in taking these medications due to potential decreased kidney function and or elevated blood pressure. - Analgesic pain medication for pain suppression (discussed were the pros, cons, benefits and risks as well as any black box warnings) - The use of topical pain relieving medication were discussed - The use of ice to decrease inflammation and pain - The use of assistive ambulatory devices for ambulation and fall prevention - Formal specific guided physical therapy program I reviewed my findings at length with the patient today. ??We discussed the nature and etiology of this problem along with current treatment options. We discussed the expected course and outcomes and what to expect. We also discussed risks and benefits. ?? All of their questions were answered today, and there was exhibited understanding and comprehension of all that was discussed. Time Spent: 10 minutes were spent reviewing previous imaging and charting. ??10 minutes were spent obtaining patient history. ??5 minutes were spent on physical exam. ??5??minutes were spent explaining diagnosis and assessment. Today's documentation was made using voice recognition software. This note may contain grammatical errors secondary to the software. Not available 04/16/2023 08:08:10 Plan of Treatment Reminders Order Date Submit Date Provider Last Modified By Organization Details Last Modified Time Details Appointments None record ed. Lab None record ed. Referral None record ed. Procedures None record ed. Surgeries None record ed. Imaging XR, knee, 3 view 023 04/15/20 23 [email or web address] [facility], [address], [place], [address], 11:24:06 Medication Orders None record ed. Patient TargetsNo targets recorded. Patient Instructions Encounter Date Encounter Id Patient Instructions Last Modified By Organization Details Last Modified Time 04/15/2023 [id number] X-rays of the left knee reveal well-seated well-positioned left total knee arthroplasty without sign of loosening. No acute bony abnormality. Not available 04/16/2023 08:08:21 Reason for Referral None Reported. Procedures Surgical History Date Name Laterality Status Provider Name and Address Organization Details Recorded Time Head or Neck Surgery completed [facility] 04/15/2023 15:49:23 total knee replacement completed [facility] 04/15/2023 15:49:59 procedure on tonsils completed [facility] 04/15/2023 15:50:14 section completed [facility] 04/15/2023 15:50:23 lithotripsy completed [facility] 04/15/2023 15:50:59 Imaging Results None recorded. Procedure Notes None recorded. Medical Equipment None Reported. Allergies Allergen ID Allergen Name Allergen Category Reaction Reaction Severity Criticality Documentation Date Start Date Code Code System Note Provider Name and Address Organization Details Recorded Time 7295 Product containin g penicilli n (product) medicatio n Not available Not available Not available 04/15/2023 91031 8001 SNOMED Mayuri Mershon null, [place] [facility] [place], [facility] 3 15:41:41 7296 Levaquin medicatio n Not available Not available Not available 04/15/2023 25884 2 RxNorm Mayuri Mershon null, [place] [facility], [facility] 3 15:41:49 7297 Bactrim medicatio n Not available Not available Not available 04/15/2023 36434 9 RxNorm Mayuri Mershon null, [place] [facility], [facility] 3 15:42:26 7298 Celebrex medicatio n Not available Not available Not available 04/15/2023 43613 7 RxNorm Mayuri Mershon null, [place] [facility], [facility] 3 15:42:36 7299 Non-stero idal anti-infl ammatory agent (product) medicatio n Not available Not available Not available 04/15/2023 66159 005 SNOMED Mayuri Saldaña null, [place] [facility], [facility] 3 15:43:29 Medications Name Sig Start Date Stop Date Status Note LastModified by Organization Details LastModified Time azithromyci n 250 mg tablet TAKE 2 TABLETS BY MOUTH 1 HOUR PRIOR TO DENTAL PROCEDURE 04/15 completed Not Available Not Available Not Available pravastatin 40 mg tablet TAKE 1 TABLET BY MOUTH EVERY DAY active Not Available Not Available No t Available betamethaso ne, augmented 0.05 % topical cream APPLY TO HANDS TWICE DAILY FOR UP TO 2 WEEKS,JOHN E 1 WEEK OFF USING EPICERAM ALONE.REP EAT UNTIL CLEAR 04/15 completed Not Available Not Available Not Available chlorthalid one 25 mg tablet TAKE 1 TABLET BY MOUTH 1 TIME EACH DAY. active Not Available Not Available No t Available trimethopri m 100 mg tablet TAKE 1 TABLET BY MOUTH EVERY 12 HOURS FOR 5 DAYS 04/15 completed Not Available Not Available Not Available levothyroxi ne 25 mcg tablet TAKE 1 TAB BY MOUTH FOR 6 DAYS A WEEK AND 2 TABS ON THE SEVENTH DAY OF THE WEEK active Not Available Not Available No t Available potassium citrate ER 10 mEq (1,080 mg) tablet,exte nded release PLEASE SEE ATTACHED FOR DETAILED DIRECTION S active Not Available Not Available No t Available pyridoxine (vitamin B6) 100 mg tablet TAKE 1 TABLET BY MOUTH EVERY DAY active Not Available Not Available No t Available metronidazo le 0.75 % topical gel APPLY TO FACE TWICE DAILY FOR ONE MONTH THEN ONCE DAILY active Not Available Not Available No t Available cyclobenzap rine 5 mg tablet TAKE 1 TABLET BY MOUTH 3 TIMES A DAY FOR 14 DAYS 04/15 completed Not Available Not Available Not Available Flowflex COVID-19 Antigen Home Test kit REFER TO ISAC CEE ON MANUFACTU RER LABEL 04/15 completed Not Available Not Available Not Available Vitals Date Recorded Body height Body mass index (BMI) Body weight Provider Name and Address Organization Details Last Updated DateTime 04/15/2023 165.1 cm 30 kg/m2 81572.63 g Mayuri Saldaña [place] [facility], 04/15/2023 15:43:46 Social History Question Answer Notes LastModified by Organizat ion Details LastModified Time Tobacco Smoking Status Never Smoker Mayuri Saldaña [facility], [place] [facility] [place], 04/15/2023 15:53:10 What Is Your Level Of Alcohol Consumption? Occasional Information not available 04/15/2023 How Many Times Per Week Do You Consume Alcohol? Less Than 1 Time Per Week Information not available 04/15/2023 Do You Use Any Illicit Or Recreational Drugs? No Information not available 04/15/2023 Do You Or Have You Ever Used Any Other Forms Of Tobacco Or Nicotine? No Information not available 04/15/2023 Sex: Unknown Functional Status None recorded. Mental Status None recorded. Family History Relationship Description Onset Age of this Age Resolved Age Notes LastModified by Organization Details LastModified Time Father Arthritis Not available 04/15/2023 15:51:29 Father Diabetes mellitus Not available 2022 15:51:55 Father Heart disease Not available 2022 15:52:08 Father Hypercholest erolemia Not available 2022 15:52:25 Father Hypertensive disorder Not available 2022 15:52:37 Sister Arthritis Not available 04/15/2023 15:51:29 Sister Family history of malignant neoplasm Not available 2022 15:51:40 Mother Scoliosis deformity of spine Not available 2022 15:52:47 Medical History Condition Response Cancer Y Thyroid Problems Y Hypertension Y Kidney Disease Y Gynecological HistoryNo gynecological history recorded. Obstetrics History GPAL:G 0 P 0 0 0 0 Past Encounters Encounter ID Performer Location Encounter Start Date Encounter Closed Date Diagnosis/Indication Diagnosis SNOMED-CT Code Diagnosis ICD10 Code Diagnosis Note [id number] MD JOHNSON Spence [facility] [address] [facility] [address] [place] [address] 04/15/2023 10:48:00 04/15/2023 11:24:05 History of left total knee replacement [id number] 112845 Z96.652 Health Concerns Section Related Observation LastModified by Organization Detai ls LastModified Time None Recorded Concern Status LastModified by Organization Details LastModified Time None Recorded Advance Directives Directive None Recorded Payers Encounter Date Sequence Insurance Name Policy Number Policy Magana Covered Member ID Magana Member ID Guarantor Name 04/15/2023 1 [place] Juve Shyam Searskianroberto [id number] Juve Licona 04/15/2023 2 [employer] - SENIOR SERVICES PLAN F (MEDICARE SUPPLEMENT) [id number] Juve Shyam Licona [id number] Juve Monae Notes Date Note Type Note Provider Name and Address Organization Details Recorded Time 04/15/2023 text/html This is a very pleasant 67-year-old female here for follow-up on her left total knee arthroplasty performed by Dr. Jang on 01/03/2018. Patient states she is feeling well. She does her stretching exercises. She has occasional discomfort that is tolerable and manageable with [id number]-[id number] pain medication when she overdoes it. No other complaints at this time. JAVON CHOWDARY PA-C [address] [facility] [address], [place], [address], [place] [facility] [place], [facility] 04/16/2023 08:08:46 OBGyn Episode No OBEpisode recorded.
--- OUTSIDE RECORDS SUMMARY | 2024-11-07 10:49 | XMS_ITS | Encounter Summary ---
Author Organization [facility] Address [address] [facility] [address] [place] [address] Phone Care Team Providers Care Bilingual Speech Therapist Name Role Phone Darnell Herron MD Primary Care Provider [phone] Encounter Details Date Type Department Care Team (Latest Contact Info) Description 07/09/2022 Office Communication [facility] [address] [facility] [address] [place] [address] Bri Ham Stage 3a chronic kidney disease (HCC) (Primary Dx) Social History Tobacco Use Types Packs/Day Years Used Date Smoking Tobacco: Never Alcohol Use Standard Drinks/Week Comments No 0 (1 standard drink = 0.6 oz pur e alcohol) Comments Unknown Sex and Gender Information Value Date Recorded Sex Assigned at Not on file Legal Sex Female 5:03 PM EST Gender Identity Not on file Sexual Orientation Not on file documented as of this encounter Miscellaneous Notes * Telephone Encounter - Bri Ham - 07/09/2022 3:35 PM EST Pt called saying she rescheduled her yearly appt making her order for labs , can you please put a new order into [facility] system for a renal function panel so pt could have it done before 07/27 appt. documented in this encounter Plan of Treatment Upcoming Encounters Date Type Department Care Team (Late st Contact Info) Description 08/27/2025 1:15 PM EST Office Visit [facility] [address] [place] [id number] Marbin Gonzalez MD [address] [place] [address] Scheduled Orders Name Type Priority Associated Diagnoses Orde r Schedule Renal Function Panel Lab Routine Stage 3a chronic kidney disease (HCC) Expected: 07/27/2022, Expires: 08/12/2023 Urinalysis with microscopic Lab Routine Stage 3a chronic kidney disease (HCC) Expected: 07/27/2022, Expires: 08/12/2023 Urine Albumin / Creatinine Ratio Lab Routine Stage 3a chronic kidney disease (HCC) Expected: 07/27/2022, Expires: 08/12/2023 Protein, Total, Random Urine w/Creatinine (Protein/Creat Ratio) Lab Routine Stage 3a chronic kidney disease (HCC) Expected: 07/27/2022, Expires: 08/12/2023 documented as of this encounter Visit Diagnoses Diagnosis Stage 3a chronic kidney disease (HCC)- Primary documented in this encounter Care Teams Bilingual Speech Therapist Relationship Specialty Start Date End Date Darnell Herron MD [address], [place] PCP - General 09/09/20 documented as of this encounter
--- OUTSIDE RECORDS SUMMARY | 2024-11-07 10:50 | XMS_ITS ---
Author Name [facility] Organization Unknown History of Medication Use Medication Directions Dispensed Refills Start Date End Date Stat us potassium citrate ER 10 mEq (1,080 mg) tablet,extended release PLEASE SEE ATTACHED FOR DETAILED DIRECTIONS active azithromycin 250 mg tablet TAKE 2 TABLETS BY MOUTH 1 HOUR PRIOR TO DENTAL PROCEDURE 3 completed pyridoxine (vitamin B6) 100 mg tablet TAKE 1 TABLET BY MOUTH EVERY DAY active pravastatin 40 mg tablet TAKE 1 TABLET BY MOUTH EVERY DAY active cyclobenzaprine 5 mg tablet TAKE 1 TABLET BY MOUTH 3 TIMES A DAY FOR 14 DAYS 3 completed Allergies Allergen Reaction Severity Comment Documented Date Source Statu s BACTRIM ENS_AONECT PENICILLINS ENS_AONECT NSAIDS (NON-STEROIDAL ANTI-INFLAMMATORY DRUG) ENS_AONECT CELEBREX ENS_AONECT LEVAQUIN ENS_AONECT Encounters Encounter Type Encounter Reason Primary Diagnosis Location Date Ambulatory [facility] [place] [facility] 04/15/2023 Ambulatory [facility] 04/15/2023 Ambulatory [facility] 04/15/2023 Ambulatory [facility] 04/13/2023 Ambulatory [facility] 04/13/2023 Ambulatory [facility] 04/12/2023 Ambulatory [facility] [place] 04/12/2023
--- OUTSIDE RECORDS SUMMARY | 2024-11-07 10:50 | XMS_ITS ---
Author Organization [facility] Address [address] [place] [address] Care Team Providers Care Patient Registration Rep Name Role Phone Darnell Herron MD Primary Care Provider Emmanuel Henriquez Jr REASON FOR VISIT screening Encounters Encounter Location Date Provider Diagnosis [facility] [address] [place], [place] [id number] 12/07/2023 Emmanuel Roach Jr Encounter for screening colonoscopy Z12.11 and FH: colon polyps Z83.719 Assessments Encounter Date Diagnosis (ICD Code) Assessment Notes Treatment Notes Treatment Clinical Notes Section Notes 12/07/2023 Encounter for screening colonoscopy (ICD-10 - Z12.11) 12/07/2023 FH: colon polyps (ICD-10 - Z83.719) Plan Of Treatment No Information Progress Notes * MICHAELJADA CLOUD NDOB: [birth year] (69 yo F)Acc No.[id number]:12/07/2023 COLON WITH MAC Patient:?JADA RAMSEY Shyam Provider:?Emmanuel Roach MD :1955???Age:68 Y???Sex:Female D ate:12/07/2023 Address:[facility] [address] Pcp:Darnell Herron MD Subjective: * Chief Complaints: * ???1. Screening. * Medical History:? Objective: * Vitals:? Assessment: * Assessment: 1.?Encounter for screening c olonoscopy - Z12.11 (Primary)???2.?FH: colon polyps - Z83.719??? Plan: * Treatment: * Procedure Codes:?G0105 COLOR EC CANCR SCR; COLNSCPY HI RISK * * The named appointment provid er may or may not be the originator of this progress note, and it is not deemed complete until electronically signed by the appointment provider. Sign off status: Pending * Provider:?Emmanuel Roach MD Date:?0 12/07/2023 Generated for Andrea cha/Blu/eTransmitting on:?11/07/2024 10:49 AM EDT
--- OUTSIDE RECORDS SUMMARY | 2024-11-07 10:50 | XMS_ITS | Clinical Summary ---
Author Organization [facility] Address [address] [place] [address] Phone Care Team Providers Care Dial Painter Name Role Phone Darnell Herron MD Primary Care Provider [phone] Allergies Active Allergy Reactions Criticality Noted Date Comments Cefazolin Other (see comments),Rash Low 04/21/2022 Celecoxib Other (see comments) 12/29/2020 Clindamycin Other (see comments) 12/29/2020 Hydrochlorothiazide Other (see comments) 2020 Levofloxacin Other (see comments) 12/29/2020 Penicillins Other (see comments) 12/29/2020 Scopolamine Rash Low 04/21/2022 Sulfa Antibiotics Other (see comments) 12/30/19 21 Sulfamethoxazole-Trimethoprim 2021 Medications Prochlorperazin e Maleate (COMPAZINE PO) Comments: Patient Notes: TAKE 1 TABLET BY MOUTH ONCE A DAY NEEDED Duration: 30 Active acetaminophen (TYLENOL) 500 MG tablet Take 2 tablets by mouth 3 (three) times a day Active omega-3 (FISH OIL) 1000 MG capsule Take 1 capsule by mouth 1 (one) time each day Active oxyCODONE-aceta minophen (PERCOCET) 5-325 MG per tablet if needed Active pravastatin (PRAVACHOL) 40 MG tablet Take 40 mg by mouth 1 (one) time each day Active pyridoxine (VITAMIN B-6) 100 MG tablet Take 100 mg by mouth 1 (one) time each day Active allopurinol (ZYLOPRIM) 100 MG tablet Take 100 mg by mouth 1 (one) time each day Active trimethoprim (TRIMPEX) 100 MG tablet Active levothyroxine (SYNTHROID, LEVOTHROID) 25 MCG tablet TAKE 1 TAB BY MOUTH FOR 6 DAYS A WEEK AND 2 TABS ON THE SEVENTH DAY OF THE WEEK 2 Active azithromycin (ZITHROMAX) 250 MG tablet TAKE 2 TABLETS BY MOUTH 1 HOUR PRIOR TO DENTAL PROCEDURE 2 Active chlorthalidone 25 MG tablet TAKE 1 TABLET BY MOUTH 1 TIME EACH DAY. 90 tablet 3 4 Active potassium citrate 10 MEQ (1080 MG) CR tablet TAKE 2 TABLETS (20 MEQ TOTAL) BY MOUTH 4 (FOUR) TIMES A DAY (WITH MEALS AND NIGHTLY) DO NOT CRUSH, CHEW, OR SPLIT. 720 tablet 2 4 02/05/20 25 Active Active Problems Problem Noted Date Diagnosed Date Carpal tunnel syndrome 06/29/2022 Overview (06/29/2022): EMG shows findings of a moderate right carpal tunnel syndrome. 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 Recommend auto-titrating CPAP at a pressure range of 9 to 14 cm H2O, along with a small sized Activa LT nasal mask. Heated humidification should be included set to patient comfort level. Colitis 09/23/2012 Overview (06/29/2022): saw GI Dr Roach Encounters Date Type Department Care Team Description 08/21/2024 3:30 PM EST [facility] [address] [place] [address] Marbin Gonzalez MD Medullary sponge kidney (Primary Dx); Hypertensive disorder; Renal stone 08/11/2024 Orders Only [facility] [address] [place] [address] [address] [place] [address] Marbin Gonzalez MD from Last 3 Months Immunizations Name Administration Dates Next Due Influenza Whole 06/21/2019 Influenza, Unspecified 06/17/2021,2019,06/07/2018,11/09/2015 ,11/08/2015,11/27/2012 Pfizer SARS-COV-2 12/21/2021,,11/28/2020,11/28/2020 ,11/07/2020,11/07/2020 Pneumococcal Conjugate 13-Valent 01/26/2020 Pneumococcal Polysaccharide 01/31/2021 SARS-CoV-2, Unspecified 02/13/2023,06/19/2022 Tdap 06/10/2022,09/11/2011 Family History Medical History Relation Comments Diabetes Father Heart disease Father Hypertension Father Kidney disease Father stones Cancer Sibling Relation Status Comments Father Mother Sibling Social History Tobacco Use Types Packs/Day Years Used Date Smoking Tobacco: Never Smokeless Tobacco: Never Tobacco Cessation:Counseling Given: Not Answered Alcohol Use Standard Drinks/Week Comments No 0 (1 standard drink = 0.6 oz pur e alcohol) Comments Unknown Sex and Gender Information Value Date Recorded Sex Assigned at Not on file Legal Sex Female 5:03 PM EST Gender Identity Not on file Sexual Orientation Not on file Last Filed Vital Signs Vital Sign Reading Time Taken Comments Blood Pressure 128/70 08/21/2024 3:32 PM EST Pulse 68 09/02/2023 1:10 PM EST Temperature - - Respiratory Rate - - Oxygen Saturation 98% 09/02/2023 1:10 PM EST Inhaled Oxygen Concentration - - Weight 88 kg (194 lb) 08/21/2024 3:32 PM EST Height 165.1 cm (5' 5 ) 06/13/2019 12:00 PM EDT Body Mass Index 32.28 06/13/2019 12:00 PM EDT Plan of Treatment Upcoming Encounters Date Type Department Care Team (Late st Contact Info) Description 08/27/2025 1:15 PM EST Office [facility] [address] [place] [address] [place] [address] Marbin Gonzalez MD [address] [facility] [address] [place] [address] Health Maintenance Due Date Last Done Comments Breast Cancer Screening 1955 Colorectal Cancer Screening: Annual FOBT 2002 Colorectal Cancer Screening: Colonoscopy 2002 Colorectal Cancer Screening: Sigmoidoscopy 2002 Pneumococcal Vaccine: 65+ Years Completed 01/31/2021, 01/26/2020 Influenza Vaccine Completed 06/01/2024, , 06/18/2020, Additional history exists Hepatitis B Vaccine Aged Out No longe r eligible based on patient's age to complete this topic Procedures Procedure Name Priority Date/Time Associated Diagnosis Comments URINE ALBUMIN / CREATININE RATIO Routine 08/11/2024 11:42 AM EST PROTEIN / CREATININE RATIO, URINE Routine 08/11/2024 11:42 AM EST RENAL FUNCTION PANEL Routine 08/11/2024 11:42 AM EST URINALYSIS WITH MICROSCOPIC Routine 08/11/2024 11:42 AM EST MICROSCOPIC EXAMINATION - DO NOT USE Routine 08/11/2024 11:42 AM EST from Last 3 Months Results * Microscopic Examination (08/11/2024 11:42 AM EST) WBC, Urine None seen 0 - 5 /hpf [facility] RBC, Urine 0-2 0 - 2 /hpf [facility] Squamous Epithelial, Urine 0-10 0 - 10 /hpf [facility] Casts None seen None seen /lpf [facility] Bacteria, Urine None seen None seen/Few [facility] 08/11/2024 11:4 2 AM EST 08/11/2024 Marbin Gonzalez MD LAB MICROBIOLOGY - GENERAL OR DERABLES Final Result Performing Organization Address City/Va Hospital/ZIP Co de Phone Number [facility] [address] [place] [address] * Protein, Total, Random Urine w/Creatinine (Protein/Creat Ratio) (08/11/2024 11:42 AM EST) Creatinine, Ur 53.2 Not Estab. mg/dL [facility] Protein, Ur 6.2 Not Estab. mg/dL [facility] Urine Protein/Creatin ine Ratio 117 0 - 200 mg/g creat [facility] 08/11/2024 11:4 2 AM EST 08/11/2024 Marbin Gonzalez MD LAB URINE ORDERABLES Final [facility] [address] [place] [address] * Urine Albumin / Creatinine Ratio (08/11/2024 11:42 AM EST) Urine Microalbumin <3.0 Not Estab. ug/mL [facility] Microalbumin/Crea tinine Ratio <6 0 - 29 mg/g creat [facility] Comment: ? Normal: ?0 - ??29 ? Moderately increased: 30 - 300 ? Severely increased: ? >300 08/11/2024 11:4 2 AM EST 08/11/2024 us Marbin Gonzalez MD LAB URINE ORDERABLES Final Re sameer [facility] [address] [place] [address] * Urinalysis with microscopic (08/11/2024 11:42 AM EST) Specific [place], Urine 1.015 1.005 - 1.030 [facility] pH Urine 7.5 5.0 - 7.5 [facility] Color, Urine Yellow Yellow [facility] Appearance Urine Clear Clear [facility] WBC Esterase Urine Negative Negative [facility] Protein, Ur Negative Negative/Tra ce [facility] Glucose, Ur Negative Negative [facility] Ketones, Urine Negative Negative [facility] Blood Urine Negative Negative [facility] Bilirubin Urine Negative Negative [facility] [phone] Urobilinogen Urine 0.2 0.2 - 1.0 mg/dL [facility] Nitrite, Urine Negative Negative [facility] Microscopic Examination Comment [facility] Comment:Microscopic follows if indicated. Other Microsc. Observations See below: [facility] Comment:Microscopic was quang cated and was performed. 08/11/2024 11:4 2 AM EST 08/11/2024 Marbin Gonzalez MD LAB URINE ORDERABLES Final Re sult [facility] [address] [place] [address] * Renal Function Panel (08/11/2024 11:42 AM EST) Glucose 96 70 - 99 mg/dL [facility] BUN 21 8 - 27 mg/dL [facility] Creatinine 0.94 0.57 - 1.00 mg/dL [facility] eGFR CKD-EPI CR 2020 65 >59 mL/min/1.7 3 [facility] BUN/Creatinine Ratio 22 12 - 28 [facility] Sodium 137 134 - 144 mmol/L [facility] Potassium 3.8 3.5 - 5.2 mmol/L [facility] Chloride 98 96 - 106 mmol/L [facility] Bicarbonate (CO2) 23 20 - 29 mmol/L [facility] Calcium 9.3 8.7 - 10.3 mg/dL [facility] Albumin 4.3 3.8 - 4.8 g/dL [facility] Phosphorus 3.6 3.0 - 4.3 mg/dL [facility] 08/11/2024 11:4 2 AM EST 08/11/2024 us Marbin Gonzalez MD LAB BLOOD ORDERABLES Final Re sult [facility] [address] [place] [address] from Last 3 Months Insurance MEDICARE [facility] Care Teams Dial Painter Relationship Specialty Start Date End Date Darnell Herron MD [address], [place] PCP - General 09/09/20
--- OUTSIDE RECORDS SUMMARY | 2024-11-07 10:50 | XMS_ITS | Patient Health Record ---
Author Organization [facility] Address [address] [place] [address] Care Team Providers Care Commission Auditor Name Role Phone Darnell Herron MD Primary Care Provider UnavailEmmanuel De La Rosa Jr Unavailable Allergies Allergen (clinical drug ingredient) Drug/Non Drug Allergy documented on EMR Reaction Allergy Type Onset Date Status vancomycin Vancomycin Unknown Drug Allergy Activ e ephedrine Ephedrine Unknown Drug Allergy Active Penicillin Unknown Drug Allergy Active phenazopyridine Pyridium Unknown Drug Allergy A ctive Levaquin Unknown Drug Allergy Active hydrochlorothiazide Hydrochlorothiazide Unknown Drug Aller gy Active celecoxib Celebrex Unknown Drug Allergy Active Bactrim DS Unknown Drug Allergy Active Bactrim Unknown Drug Allergy Active 12 Hour Nasal [place] Unknown Drug Allergy Active Reason For Referral No Information Medications Medication SIG (Take, Route, Frequency, Duration) Notes Start Date End Date Status Tylenol Not-Taking Cranberry 425 MG as directed Orally twice a day Active Potassium Citrate Ac tive Levothyroxine Sodium 25 MCG 1 tablet on an empty stomach in the morning Orally Once a day wed 2 pills Active Pravastatin Sodium 40 MG 1 tablet Orally Once a day Active MiraLax (colon prep) 17 GM/SCOOP mixed with Gatorade or Crystal Light Orally begin at 5:00 p.m. the day before the procedure for 1 day 11/04/2023 Active Align 4 MG Orally Active Prochlorperazine Maleate 10 MG 1 tablet Orally Three times a day/prn Active Chlorthalidone 25 MG Oral for 90 Active Vitamin B-6 100 MG TAKE 1 TABLET BY MOUTH EVERY DAY Oral for 90 Active Problems Problem Type SNOMED Code ICD Code Onset Dates Problem Status W/U Status Risk Notes Problem 266443784 Colon cancer screening (Z12.11) Active confirmed Problem 592226117897120 intermediate (current) use of aspirin (Z79.82) Active confirmed Problem 844640010 Clostridium difficile infection (B96.89) Active confirmed Problem 493171559 Esophageal dysmotility (K22.4) Active confirmed Problem 68274972 Abdominal pain, unspecified abdominal location (R10.9) Active confirmed Problem [id number] 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 (Z79.899) Active confirmed Encounters Encounter Location Date Provider Diagnosis [facility] [address] [place] [id number] 12/07/2023 Emmanuel Roach Jr Encounter for screening colonoscopy Z12.11 and FH: colon polyps Z83.719 Assessments Encounter Date Diagnosis (ICD Code) Assessment Notes Treatment Notes Treatment Clinical Notes Section Notes 12/07/2023 Encounter for screening colonoscopy (ICD-10 - Z12.11) 12/07/2023 FH: colon polyps (ICD-10 - Z83.719) Plan Of Treatment Future Test Test Name Order Date COLONOSCOPY 10/05/2012 COLONOSCOPY 03/30/2018 COLONOSCOPY 11/04/2023 Insurance Providers Payer Name Payer Address Payer Phone Subscriber Number Group Number Insured Name Patient Relationship to Insured Coverage Start Date Coverage End Date MEDICARE OF [place] [address] [place] [address] [id number] JADA RAMSEY Self - patient is the insured [facility] [address] [place] [address] [id number] JADA RAMSEY Self - patient is the insured Medical (General) History Medical History History ICD Code Colonoscopy 09/17 diverticulosis five-yea r followup for family history Medullary sponge kidney Degenerative joint disease Hypertension nephrolitiasis, status post multiple lit htripsies and urosepsis Hyperlipidemia FRANK Surgical History Surgery Date(Month/Year) caesarean section tonsillectomy Lithotrispy x5 left total knee replacement 01/02/2018 herniated disk repair c5 c6 neck 2018
--- OUTSIDE RECORDS SUMMARY | 2024-11-07 10:50 | XMS_ITS | Clinical Summary ---
Author Organization [facility] Address [address] [id number] Care Team Providers Care Painter Mirror Name Role Phone Darnell Herron MD Primary Care Provider [phone] Allergies Active Allergy Reactions Criticality Noted Date Comments Sulfamethoxazole-Trimethopri m 10/15/2017 Cefazolin Other (See Comments) 04/21/2022 Celecoxib 10/15/2017 Clindamycin 04/21/2022 Other reaction(s): C-Diff Hydrochlorothiazide Hives 04/21/2022 Levofloxacin 10/15/2017 Nsaids 10/15/2017 Penicillins 10/15/2017 Phenazopyridine 10/15/2017 Scopolamine Rash Low 04/21/2022 Sulfadiazine Hives 04/21/2022 Ketorolac Tromethamine 10/15/2017 Medications Medication Sig Dispensed Refills Start Date End Date Status PROAIR HFA 108 (90 BASE) MCG/ACT inhaler INHALE 2 PUFFS EVERY 4 HOURS NEEDED 3 08/31/2017 Active chlorthalidone (HYGROTON) 25 MG tablet Take 25 mg by mouth daily. 5 08/11/2017 Active pravastatin (PRAVACHOL) tablet 40 mg TAKE 1 TABLET BY MOUTH EVERY DAY 11 09/24/2017 Active Multiple Vitamin (MULTI VITAMIN DAILY PO) Take by mouth. 0 Active [place]-3 Fatty Acids (FISH OIL PO) Take by mouth. 0 Active cyclobenzaprine (FLEXERIL) 10 MG tablet TAKE 1 TABLET BY MOUTH AT BEDTIME NEEDED 0 11/25/2017 Active prochlorperazine (COMPAZINE) 10 MG tablet 0 12/14/2017 Active clindamycin (CLEOCIN) 300 MG capsule Take 2 capsules 1 hour prior to dental appointment 10 capsule 3 01/18/2018 Active levothyroxine (SYNTHROID, LEVOXYL) tablet 25 mcg Take 25 mcg by mouth daily. 11 08/23/2018 Active omeprazole (PriLOSEC) 20 MG capsule 0 07/29/2019 Active doxycycline (VIBRAMYCIN) 100 MG capsule 0 08/14/2019 Active gabapentin (NEURONTIN) 100 MG capsule Take 1 capsule (100 mg total) by mouth 3 (three) times a day. 90 capsule 2 09/21/2019 Active itraconazole (SPORANOX) 10 MG/ML solution TAKE 10 ML BY MOUTH 2 TIMES A DAY,X14 DAYS 0 04/10/2020 Active acetaminophen (TYLENOL EXTRA STRENGTH) 500 MG tablet Take 2 tablets by mouth 3 (three) times a day. 0 Active allopurinol (ZYLOPRIM) 100 MG tablet Take 100 mg by mouth. 0 Active potassium citrate (UROCIT-K) 10 MEQ (1080 MG) SR tablet Take 1 tablet by mouth 3 (three) times a day. 0 12/13/2020 Active pyridoxine (B-6) 100 MG tablet Take 100 mg by mouth. 0 Active naproxen (NAPROSYN) 500 MG tablet TAKE 1 TABLET BY MOUTH TWICE A DAY FOR 7 DAYS NEEDED FOR PAIN 0 01/13/2022 Active tamsulosin (FLOMAX) 0.4 MG CAPS TAKE 1 CAPSULE BY MOUTH EVERY DAY AT BEDTIME FOR 2 WEEKS 0 01/13/2022 Active traMADol (ULTRAM) 50 MG tablet tramadol 50 mg tablet TAKE 1 TABLET BY MOUTH EVERY 6 HOURS NEEDED FOR MILD PAIN 0 Active trimethoprim (TRIMPEX) 100 MG tablet TAKE 1 TABLET BY MOUTH DAILY FOR 10 DAYS 0 01/13/2022 Active azithromycin (ZITHROMAX) 250 MG tablet TAKE 2 TABLETS 1 HOUR PRIOR TO DENTAL PROCEDURE 10 tablet 3 04/21/2022 Active Active Problems Problem Noted Date Diagnosed Date Postop check 01/18/2018 Family History Medical History Relation Name Comments Diabetes Father Heart disease Father Hypertension Father Cancer Maternal Grandfather Relation Name Status Comments Father Maternal Grandfather Social History Tobacco Use Types Packs/Day Years Used Date Smoking Tobacco: Never Assessed Sex and Gender Information Value Date Recorded Sex Assigned at Not on file Gender Identity Not on file Sexual Orientation Not on file Job Start Date Occupation Industry Not on file Not on file Not on file Last Filed Vital Signs Vital Sign Reading Time Taken Comments Blood Pressure - - Pulse - - Temperature - - Respiratory Rate - - Oxygen Saturation - - Inhaled Oxygen Concentration - - Weight 83.9 kg (185 lb) 04/21/2022 9:30 AM EDT Height 165.1 cm (5' 5 ) 04/21/2022 9:30 AM EDT Body Mass Index 30.79 04/21/2022 9:30 AM EDT Plan of Treatment Health Maintenance Due Date Last Done Comments Hepatitis C Screening 1955 Depression Screening 1965 BMI Counseling 1971 Preventative Health Evaluation 1971 DTap / Tdap / Td (1 - Tdap) 1972 Colon Cancer Screening (Colonoscopy) 1998 Breast Cancer Screening (Mammogram) 2003 Shingrix-Zoster Vaccine (1 of 2) 2003 Fall Risk Assessment 2018 Osteoporosis Screening (DEXA Scan) 2018 COVID-19 Vaccine ( season) 2024 12/21/2021, 07/03/2021, 11/28/2020, Additional history exists Influenza Vaccine (#1) 2024 , 06/18/2020, 06/07/2018, Additional history exists RSV Adult > 60+ Yrs or (1 - 1-dose 75+ series) 2028 Pneumococcal Vaccine Completed 01/31/2021, 01/26/20 20 Hepatitis B Vaccines Aged Out No long er eligible based on patient's age to complete this topic RSV Ped < 20 months Aged Out No longe r eligible based on patient's age to complete this topic Care Teams Painter Mirror Relationship Specialty Start Date End Date Darnell Herron MD [address] [place] [address] PCP - General Internal Medicine 09/13/17
== END 2024-11-07 10:24 | disposition home or self-care (01) ==
LOC: HO.HOS 09:34
PROVIDERS: PCP Internal Medicine; Visit Provider Orthopaedic Surgery
DX: Z47.89 Encounter for other orthopedic aftercare (principal); Z96.652 Presence of left artificial knee joint
CPT/HCPCS: 99213; G2211

== ENCOUNTER → 2024-11-07 09:42 | Outpatient (BNV) | payer MEDICARE, OTHER, SELFPAY | PROVIDERS: Visit Provider Radiology Diagnostic Radiology | DX: M25.562 Pain in left knee (principal) | CPT/HCPCS: 73562 ==

== ENCOUNTER 2024-11-07 15:12 | Outpatient (REF) | payer MEDICARE, OTHER, SELFPAY ==
--- NOTE | ~2024-11-07 | XR_ITS ---
EXAMINATION: XR KNEE, LEFT CLINICAL INFORMATION: M25.562 - Pain in left knee COMPARISON: November 09, 2023. TECHNIQUE: Three views of the left knee. FINDINGS: There is a metallic prosthesis with a femoral and tibial plateau component well-seated in the osseous structures. There is loosening beneath the femoral component and surrounding the cement. There is loosening surrounding the tibial component. No gross malalignment. XR/XR knee LT 3V IMPRESSION: Concerning loosening both femoral and tibial prosthetic components. Electronically signed by: Bryce Rosario MD 11/07/2024 02:37 PM EDT
--- OUTSIDE RECORDS SUMMARY | 2024-11-08 17:56 | XMS_ITS | Data Portability ---
Author Organization [place] [facility], [facility] Address [address] [place] [address] Care Team Providers Care Therapeutic Mentor Name Role Phone JOSE NESBITT Primary Care Provider [phone] Assessment Encounter Date Assessment Date Assessment LastModified by Organization Details LastModified Time 03/05/2022 03/05/2022 Time On Scene with Patient: 01:26:17 DDX: ACS, PE, pneumonia, aortic dissection. Pt being evaluated for chest pain that woke her from sleep and resolved almost completely. HEART score of 3 without trop being done. Modified Wells Score for PE 0 There was a CTA done within the last 5 years with normal diameter aorta. This does not exclude possibility of dissection but would expect continued discomfort. Secondary signs evaluated for - pulses bilateral upper extremities equal and strong. Pt looks overall well. EKG done unremarkable. This was given to patient. Pt will FU with PCP. Further if there is any further episodes, she will call 911 for evaluation. Pt sitting on couch at completion of visit, Resp easy, speech clear, continues to be talkative. Not available 03/05/2022 16:36:04 Plan of Treatment Reminders Order Date Submit Date Provider Last Modified By Organization Details Last Modified Time Details Appointments None record ed. Lab None record ed. Referral None record ed. Procedures None record ed. Surgeries None record ed. Imaging None record ed. Medication Orders None record ed. Patient TargetsNo targets recorded. Patient Instructions Encounter Date Encounter Id Patient Instructions Last Modified By Organization Details Last Modified Time 03/05/2022 [id number] You came to the ED for evaluation of chest pain that occurred last night. This resolved - Your PCP office wanted you to be re-evaluated. We did an EKG here and your vital signs. These were unremarkable. You should follow up with your PCP> IF you have any further episodes, call 911 and have the paramedics evaluate you and go to the ED. Not available 03/05/2022 15:17:04 Reason for Referral None Reported. Procedures Surgical History Date Name Laterality Status Provider Name and Address Organization Details Recorded Time 03/05/20 ECG Interpretation - DH completed SALAS RICARDO NP [address], [place], [address], [place] [facility] 03/05/2022 16:19:48 total replacement of left knee joint completed SALAS RICARDO NP [address], [place], [address], [place] [facility] 03/05/2022 15:00:24 excision of cervical intervertebral disc completed SALAS RICARDO NP [address], [place], [address], [place] [facility] 03/05/2022 15:00:41 Imaging Results None recorded. Procedure Notes None recorded. Medical Equipment None Reported. Allergies No known drug allergies Medications Name Sig Start Date Stop Date Status Note LastModified by Organization Details LastModified Time azithromycin 250 mg tablet TAKE 2 TABLETS BY MOUTH TODAY, THEN TAKE 1 TABLET DAILY FOR 4 DAYS active Not Available Not Available No t Available pravastatin 40 mg tablet TAKE 1 TABLET BY MOUTH EVERY DAY active Not Available Not Available No t Available prednisone 20 mg tablet TAKE 1 TABLET BY MOUTH EVERY DAY X5 DAYS active Not Available Not Available Not Available chlorthalido ne 25 mg tablet TAKE 1 TABLET BY MOUTH EVERY DAY active Not Available Not Available No t Available prochlorpera zine maleate 10 mg tablet active Not Available Not Available Not Available trimethoprim 100 mg tablet TAKE 1 TABLET BY MOUTH DAILY FOR 10 DAYS active Not Available Not Available Not Available tramadol 50 mg tablet TAKE 1 TABLET BY MOUTH EVERY 6 HOURS NEEDED FOR MILD PAIN active Not Available Not Available No t Available levothyroxin e 25 mcg tablet TAKE 1 TAB BY MOUTH FOR 6 DAYS A WEEK AND 2 TABS ON THE SEVENTH DAY OF THE WEEK active Not Available Not Available No t Available tamsulosin 0.4 mg capsule TAKE 1 CAPSULE BY MOUTH EVERY DAY AT BEDTIME FOR 2 WEEKS active Not Available Not Available No t Available potassium citrate ER 10 mEq (1,080 mg) tablet,exten ded release PLEASE SEE ATTACHED FOR DETAILED DIRECTIONS active Not Available Not Available N ot Available pyridoxine (vitamin B6) 100 mg tablet TAKE 1 TABLET BY MOUTH EVERY DAY FOR 90 DAYS active Not Available Not Available No t Available methylpredni solone 4 mg tablets in a dose pack TAKE 6 TABLETS ON DAY 1 DIRECTED ON PACKAGE AND DECREASE BY 1 TAB EACH DAY FOR A TOTAL OF 6 DAYS active Not Available Not Available No t Available naproxen 500 mg tablet TAKE 1 TABLET BY MOUTH TWICE A DAY FOR 7 DAYS NEEDED FOR PAIN active Not Available Not Available No t Available Flowflex COVID-19 Antigen Home Test kit USE ACCORDING TO MANUFACTURE RS DIRECTIONS active Not Available Not Available N ot Available Paxlovid 300 mg (150 mg x 2)-100 mg tablets in a dose pack active Not Available Not Available No t Available Vitals Date Recorded Respiratory rate Heart rate Body temperature Oxygen saturation Oxygen saturation in Arterial blood by Pulse oximetry Systolic blood pressure Diastolic blood pressure Provider Name and Address Organization Details Last Updated DateTime 2 16 /min 77 /min 97.8 [degF] 97 % 97 % 128 mm[Hg] 86 mm[Hg] Not Available [facility] 14:56:07 Social History None recorded. Functional Status None recorded. Mental Status None recorded. Family History Nothing Reported. Medical History Condition Response Diabetes N Coronary Artery Disease N CHF N Parkinson's Disease N Cancer Y Stroke N Dementia N Asthma N Hypothyroidism Y Depression N COPD N High Cholesterol Y Rheumatoid Arthritis N Pulmonary Embolism N Hypertension N A-fib N Kidney Disease N Gynecological HistoryNo gynecological history recorded. Obstetrics History GPAL:G 0 P 0 0 0 0 Past Encounters Encounter ID Performer Location Encounter Start Date Encounter Closed Date Diagnosis/Indication Diagnosis SNOMED-CT Code Diagnosis ICD10 Code Diagnosis Note [id number] SALAS RICARDO NP [facility] [address] [place] [address] 03/05/2022 14:50:04 03/06/2022 10:07:00 Atypical chest pain 913371420 R07.89 COVID-19 607192101 U07.1 Health Concerns Section Related Observation LastModified by Organization Detai ls LastModified Time None Recorded Concern Status LastModified by Organization Details LastModified Time None Recorded Advance Directives Directive None Recorded Payers Encounter Date Sequence Insurance Name Policy Number Policy Magana Covered Member ID Magana Member ID Guarantor Name 03/05/2022 1 [place] [employer] Juve Licona [id number] Juve Licona 03/05/2022 2 [facility] - SENIOR SERVICES PLAN F (MEDICARE SUPPLEMENT) [id number] Juve Licona [id number] Juve Licona Notes Date Note Type Note Provider Name and Address Organization Details Recorded Time 03/05/2022 text/html 66 year-old female with history of FRANK on CPAP, HLD, COVID DX on Wednesday, Paxlovid started on Wednesday. Wednesday she woke up feeling much better.Woke up at early this morning with chest pain and right side pain that scared her. It did subside within 30 minutes- took tylenol for it . She ended up going back to bed once the morning came. She did not have any nausea, NO diaphoresis, NO shortness of breath, NO weakness. 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 She then called her PCP office who had [facility] for [facility].Pt currently has minimal chest discomfort that is midsternal and non radiating. She denies any shortness of breath, activity intolerance, nausea, vomiting or diaphoresis. She denies any leg swelling. SALAS RICARDO, MARYCRUZ [address], [place], [address], [place] [facility] 03/05/2022 16:36:15 OBGyn Episode No OBEpisode recorded.
--- OUTSIDE RECORDS SUMMARY | 2024-11-08 17:57 | XMS_ITS | Clinical Summary ---
Author Organization [facility] Address [address] [id number] Care Team Providers Care Construction Driller Name Role Phone Darnell Herron MD Primary Care Provider [phone] Allergies Active Allergy Reactions Criticality Noted Date [...] DAILY PO) Take by mouth. 0 Active [place]-3 Fatty Acids (FISH OIL PO) Take by [...] age to complete this topic Care Teams Construction Driller Relationship Specialty Start Date End Date Darnell Herron MD [address] [address] PCP - General Internal Medicine 09/13/17
--- OUTSIDE RECORDS SUMMARY | 2024-11-08 17:57 | XMS_ITS | Data Portability ---
Author Organization [place] [facility] Elias Ziegler [facility] [place] Address [address] [facility] [address] [place] [address] Care Team Providers Care Charge Account Identification Clerk Name Role Phone JOSE NESBITT Referring Provider [...] knee, 3 view 023 04/15/20 23 [email or web address] [facility], [address], [place], [address], 11:24:06 Medication Orders None record ed. Patient TargetsNo targets recorded. Patient Instructions Encounter Date Encounter Id Patient Instructions Last Modified By Organization Details Last Modified Time 04/15/2023 [id number] X-rays of the left knee reveal well-seated well-positioned left total knee arthroplasty without sign of loosening. No acute bony abnormality. Not available 04/16/2023 08:08:21 Reason for Referral None Reported. Procedures Surgical History Date Name Laterality Status Provider Name and Address Organization Details Recorded Time Head or Neck Surgery completed [facility] 04/15/2023 15:49:23 total knee replacement completed [facility] 04/15/2023 15:49:59 procedure on tonsils completed [facility] 04/15/2023 15:50:14 section completed [facility], [facility] 04/15/2023 15:50:23 lithotripsy completed [facility] 04/15/2023 15:50:59 Imaging Results None recorded. Procedure Notes None recorded. Medical Equipment None Reported. Allergies Allergen ID Allergen Name Allergen Category Reaction Reaction Severity Criticality Documentation Date Start Date Code Code System Note Provider Name and Address Organization Details Recorded Time 7295 Product containin g penicilli n (product) medicatio n Not available Not available Not available 04/15/2023 97838 8001 SNOMED Mayuri [place] null, [place] [facility], [facility] 3 15:41:41 7296 Levaquin medicatio n Not available Not available Not available 04/15/2023 61337 2 RxNorm Mayuri [place] null, [place] - [facility], [facility] 3 15:41:49 7297 Bactrim medicatio n Not available Not available Not available 04/15/2023 11157 9 RxNorm Mayuri [place] null, [place] - [facility], [facility] 3 15:42:26 7298 Celebrex medicatio n Not available Not available Not available 04/15/2023 84390 7 RxNorm Mayuri [place] null, [place] - [facility], [facility] 3 15:42:36 7299 Non-stero idal anti-infl ammatory agent (product) medicatio n Not available Not available Not available 04/15/2023 08606 005 SNOMED Mayuri Saldaña null, [place] - [facility], [facility] 3 15:43:29 Medications Name Sig Start [...] Updated DateTime 04/15/2023 165.1 cm 30 kg/m2 47475.63 g Mayuri Saldaña [place] [facility], 04/15/2023 15:43:46 Social History Question Answer Notes LastModified by Organizat ion Details LastModified Time Tobacco Smoking Status Never Smoker Mayuri Saldaña [facility], [place] - [facility], 04/15/2023 15:53:10 What Is Your Level Of [...] SNOMED-CT Code Diagnosis ICD10 Code Diagnosis Note [id number] MD JOHNSON Spence [facility] [address] [facility] [address] [place] [address] 04/15/2023 10:48:00 04/15/2023 11:24:05 History of left total knee replacement 1375104680 289866 Z96.652 Health Concerns Section Related Observation LastModified by Organization Detai ls LastModified Time None Recorded Concern Status LastModified by Organization Details LastModified Time None Recorded Advance Directives Directive None Recorded Payers Encounter Date Sequence Insurance Name Policy Number Policy Magana Covered Member ID Magana Member ID Guarantor Name 04/15/2023 1 [place] [employer] Juve Shyam Searskianroberto [id number] 3 Juve Licona 04/15/2023 2 [employer] - SENIOR SERVICES PLAN F (MEDICARE SUPPLEMENT) [id number] Juve Shyam Licona [id number] Juve Monae Notes Date Note Type Note Provider Name and Address Organization Details Recorded Time 04/15/2023 text/html This is a very pleasant 67-year-old female here for follow-up on her left total knee arthroplasty performed by Dr. Jang on 01/03/2018. Patient states she is feeling well. She does her stretching exercises. She has occasional discomfort that is tolerable and manageable with fmfw-aie-oxmcara pain medication when she overdoes it. No other complaints at this time. JAVON CHOWDARY PA-C [address] [facility] [address], [place], [address], [place] [facility] 04/16/2023 08:08:46 OBGyn Episode No OBEpisode recorded.
--- OUTSIDE RECORDS SUMMARY | 2024-11-08 17:57 | XMS_ITS | Encounter Summary ---
Author Organization [facility] Address [address] [facility] [address] [place] [address] Phone Care Team Providers Care Colorectal Surgeon Name Role Phone Darnell Herron MD Primary Care Provider [phone] Encounter Details Date Type Department Care Team (Latest Contact Info) Description 07/09/2022 Office Communication [facility] [address] [facility] [address] [place] [address] Bri Ham Stage 3a chronic [...] you please put a new order into [facility] system for a renal function panel so pt could have it done before 07/27 appt. documented in this encounter Plan of Treatment Upcoming Encounters Date Type Department Care Team (Late st Contact Info) Description 08/27/2025 1:15 PM EST Office Visit [facility] [address] [place] [id number] Marbin Gonzalez MD [address] [place] [address] Scheduled Orders Name Type Priority Associated Diagnoses [...] Primary documented in this encounter Care Teams Colorectal Surgeon Relationship Specialty Start Date End Date Darnell Herron MD [address] [place], [place] PCP - General 09/09/20 documented as of this encounter
--- OUTSIDE RECORDS SUMMARY | 2024-11-08 17:57 | XMS_ITS ---
Author Organization [facility] Address [address] [place] [address] Care Team Providers Care Manager Of Digital Name Role Phone Darnell Herron MD Primary Care Provider Emmanuel Henriquez Jr REASON FOR VISIT screening Encounters Encounter Location Date Provider Diagnosis [facility] [address] [place], [place] [id number] 12/07/2023 Emmanuel Roach Jr Encounter for screening colonoscopy Z12.11 and FH: colon polyps Z83.719 Assessments Encounter Date Diagnosis (ICD Code) Assessment Notes Treatment Notes Treatment Clinical Notes Section Notes 12/07/2023 Encounter for screening colonoscopy (ICD-10 - Z12.11) 12/07/2023 FH: colon polyps (ICD-10 - Z83.719) Plan Of Treatment No Information Progress Notes * MICHAELJADA CLOUD NDOB: [birth year] (69 yo F)Acc No.[id number]:12/07/2023 COLON WITH MAC Patient:?JADA RAMSEY Shyam Provider:?Emmanuel Roach MD :1955???Age:68 Y???Sex:Female D ate:12/07/2023 Address:[facility] [id number] Pcp:Darnell Herron MD Subjective: * Chief Complaints: [...] MD Date:?0 12/07/2023 Generated for Andrea cha/Blu/eTransmitting on:?11/08/2024 05:57 PM EDT
--- OUTSIDE RECORDS SUMMARY | 2024-11-08 17:57 | XMS_ITS ---
Author Organization [facility] Address [address] [place] [address] Care Team Providers Care Industrial Cleaning Technician Name Role Phone Darnell Herron MD Primary Care Provider Emmanuel Henriquez Jr Unavailable Allergies Allergen (clinical drug ingredient) [...] Unknown Drug Allergy Active 12 Hour Nasal [place] Unknown Drug Allergy Active REASON FOR VISIT [...] Problem Status W/U Status Risk Notes Problem [id number] Esophageal dysmotility (K22.4) Active confirmed Problem [id number] intermediate current use of diuretic (Z79.899) Active confirmed Vital Signs Temperature 96.9 degrees Fahrenheit 11/04/19 24 Blood pressure systolic 00 mm Hg 11/04/19 24 Blood pressure diastolic 00 mm Hg 024 Height 64.50 in 11/04/2023 Weight 191 lbs 11/04/2023 BMI 32.28 kg/m2 11/04/2023 Encounters Encounter Location Date Provider Diagnosis [facility] [address] [place] [address] 11/04/2023 Emmaneul Roach Jr Colon cancer screening Z12.11 ; Esophageal dysmotility K22.4 and intermediate current use of diuretic Z79.899 Assessments Encounter Date Diagnosis (ICD Code) Assessment Notes Treatment Notes Treatment Clinical Notes Section Notes 11/04/2023 Colon cancer screening (ICD-10 - Z12.11) We discussed her upper GI symptoms today. They do appear consistent with esophageal dysmotility. She can continue to use hcyr-wvg-jeyhqwz antacids for any acid reflux component. If [...] esophageal dysmotility. She can continue to use fjhk-okt-pmxtyww antacids for any acid reflux component. If [...] chlorthalidone the day before the procedure. 11/04/2023 intermediate current use of diuretic (ICD-10 - Z79.899) We discussed her upper GI symptoms today. They do appear consistent with esophageal dysmotility. She can continue to use mvqf-ajy-rxikhrd antacids for any acid reflux component. If [...] JADA RAMSEY NDOB: [birth year] (68 yo F)Acc No.[id number]:11/04/2023 Progress Notes Patient:?JADA RAMSEY N Provider:?Emmanuel Roach MD :1955???Age:68 Y???Sex:Female D ate:11/04/2023 Address:[address] [place] [address] , [facility] Pcp:Darnell Herron MD Subjective: * Chief Complaints: [...] Celebrex, Hydrochlorothiazide, Penicillin, Pyridium, 12 Hour Nasal [place], Vancomycin, Bactrim DS, Ephedrine. Objective: * Vitals:?Wt: [...] dysmotility - K22.4 (Primary)?2.?Colon cancer screening - Z12.11?3.?intermediate current use of diuretic - Z79.899? We discussed her upper GI sy mptoms today. They do appear consistent with esophageal dysmotility. She can continue to use nmye-eaz-jifpgly antacids for any acid reflux component. If [...] MD Date:?0 11/04/2023 Generated for Andrea cha/Blu/eTransmitting on:?11/08/2024 05:56 PM EDT History and Physical Notes * HPI [...]
--- OUTSIDE RECORDS SUMMARY | 2024-11-08 17:57 | XMS_ITS | Clinical Summary ---
Author Organization [facility] Address [address] [place] [address] Phone Care Team Providers Care Head Start Director Name Role Phone Darnell Herron MD Primary Care Provider [phone] Allergies Active Allergy Reactions Criticality Noted Date [...] FH: Cardiovascular disease 06/29/2022 Overview (06/29/2022): father [place] age 55, CVA in mother Hyperlipidemia 06/29/2022 [...] [facility] [address] [place] [address] Marbin Gonzalez MD Medullary sponge kidney (Primary Dx); Hypertensive disorder; Renal stone 08/11/2024 Orders Only [facility] [address] [place] [address] [address] [place] [address] Marbin Gonzalez MD from Last [...] Visit [facility] [address] [place] [address] Marbin Gonzalez MD [address] [facility] [address] [place] [address] Health Maintenance Due Date Last [...] None seen 0 - 5 /hpf [facility] RBC, Urine 0-2 0 - 2 /hpf [facility] Squamous Epithelial, Urine 0-10 0 - 10 /hpf [facility] Casts None seen None seen /lpf [facility] Bacteria, Urine None seen None seen/Few [facility] 08/11/2024 11:4 2 AM EST 08/11/2024 Marbin Gonzalez MD LAB MICROBIOLOGY - GENERAL OR DERABLES Final Result Performing Organization Address City/[facility]/ZIP Co de Phone Number [facility] [address] [place] [address] * Protein, Total, Random Urine w/Creatinine (Protein/Creat Ratio) (08/11/2024 11:42 AM EST) Creatinine, Ur 53.2 Not Estab. mg/dL [facility] Protein, Ur 6.2 Not Estab. mg/dL [facility] Urine Protein/Creatin ine Ratio 117 0 - 200 mg/g creat [facility] 08/11/2024 11:4 2 AM EST 08/11/2024 Marbin Gonzalez MD LAB URINE ORDERABLES Final Re sult [facility] [address] [place] [address] * Urine Albumin / Creatinine Ratio (08/11/2024 11:42 AM EST) Urine Microalbumin <3.0 Not Estab. ug/mL [facility] Microalbumin/Crea tinine Ratio <6 0 - 29 mg/g creat [facility] Comment: ? Normal: ?0 - ??29 ? Moderately increased: 30 - 300 ? Severely increased: ? >300 08/11/2024 11:4 2 AM EST 08/11/2024 us Marbin Gonzalez MD LAB URINE ORDERABLES Final Re sameer [facility] [address] [place] [address] * Urinalysis with microscopic (08/11/2024 11:42 AM EST) Specific [place], Urine 1.015 1.005 - 1.030 [facility] pH Urine 7.5 5.0 - 7.5 [facility] [phone] Color, Urine Yellow Yellow [facility] [phone] Appearance Urine Clear Clear [facility] WBC Esterase Urine Negative Negative [facility] Protein, Ur Negative Negative/Tra ce [facility] Glucose, Ur Negative Negative [facility] Ketones, Urine Negative Negative [facility] [phone] Blood Urine Negative Negative [facility] Bilirubin Urine Negative Negative [facility] Urobilinogen Urine 0.2 0.2 - 1.0 mg/dL [facility] Nitrite, Urine Negative Negative [facility] Microscopic Examination Comment [facility] [phone] Comment:Microscopic follows if indicated. Other Microsc. Observations See below: [facility] [phone] Comment:Microscopic was quang cated and was performed. 08/11/2024 11:4 2 AM EST 08/11/2024 Marbin Gonzalez MD LAB URINE ORDERABLES Final Re sult [facility] [address] [place] [address] * Renal Function Panel (08/11/2024 11:42 AM EST) Glucose 96 70 - 99 mg/dL [facility] BUN 21 8 - 27 mg/dL [facility] Creatinine 0.94 0.57 - 1.00 mg/dL [facility] eGFR CKD-EPI CR 2020 65 >59 mL/min/1.7 3 [facility] BUN/Creatinine Ratio 22 12 - 28 [facility] Sodium 137 134 - 144 mmol/L [facility] Potassium 3.8 3.5 - 5.2 mmol/L [facility] Chloride 98 96 - 106 mmol/L [facility] Bicarbonate (CO2) 23 20 - 29 mmol/L [facility] Calcium 9.3 8.7 - 10.3 mg/dL [facility] Albumin 4.3 3.8 - 4.8 g/dL [facility] Phosphorus 3.6 3.0 - 4.3 mg/dL [facility] 08/11/2024 11:4 2 AM EST 08/11/2024 us Marbin Gonzalez MD LAB BLOOD ORDERABLES Final Re sult [facility] [address] [place] [address] from Last 3 Months Insurance MEDICARE [facility] MEDICARE [facility] Care Teams Head Start Director Relationship Specialty Start Date End Date Darnell Herron MD [address] [place], [place] PCP - General 09/09/20
--- OUTSIDE RECORDS SUMMARY | 2024-11-08 17:58 | XMS_ITS | Patient Health Record ---
Author Organization [facility] Address [address] [place] [address] Care Team Providers Care Lei Maker Name Role Phone Darnell Herron MD Primary [...] Unknown Drug Allergy Active 12 Hour Nasal [place] Unknown Drug Allergy Active Reason For Referral [...] Problem Status W/U Status Risk Notes Problem 591465898 Colon cancer screening (Z12.11) Active confirmed Problem 110559517699247 assisted (current) use of aspirin (Z79.82) Active confirmed Problem 407590104 Clostridium difficile infection (B96.89) Active confirmed Problem 829250596 Esophageal dysmotility (K22.4) Active confirmed Problem 83040333 Abdominal pain, unspecified abdominal location (R10.9) Active confirmed Problem [id number] 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
== END 2024-11-07 15:13 | disposition home or self-care (01) ==
LOC: HO.HOSX 15:12
PROVIDERS: Visit Provider Orthopaedic Surgery
DX: Z96.652 Presence of left artificial knee joint (principal); M25.562 Pain in left knee
CPT/HCPCS: 73562; 99212

== ENCOUNTER 2024-12-15 14:57 | Outpatient (REF) | payer MEDICARE, OTHER, SELFPAY ==
--- NOTE | ~2024-12-15 | US_ITS ---
EXAMINATION: ULTRASOUND RENAL BILATERALLY. CLINICAL INFORMATION: MEDULLARY CYSTIC KIDNEY. COMPARISON: February 10, 2024. TECHNIQUE: Real-time ultrasound of the kidneys using grayscale and color Doppler technique. FINDINGS: Right kidney: 11 x 5 x 4 cm. Volume: 97 cc.. Normal echotexture. Normal renal cortical thickness. No hydronephrosis. Multiple hypoechoic lesions throughout the corticomedullary junction/medullary compartment, the largest measures 1.3 cm. Left kidney: 10 x 3 x 4 cm. Volume: 57 cc. Normal echotexture. Normal renal cortical thickness. No hydronephrosis. Multiple hyperechoic foci, the largest measures 0.5 cm. . US/US renal BI IMPRESSION: Nonobstructing nephrolithiasis in the medullary compartment, both kidneys. 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 Electronically signed by: Bryce Rosario MD 12/15/2024 03:54 PM EDT
--- OUTSIDE RECORDS SUMMARY | 2024-12-15 15:08 | XMS_ITS | Clinical Summary ---
Author Organization [facility] Address [address] [place] [address] Phone Care Team Providers Care Learning Technologist Name Role Phone Darnell Herron MD Primary Care Provider [phone] Allergies Active Allergy Reactions Criticality Noted Date [...] FH: Cardiovascular disease 06/29/2022 Overview (06/29/2022): father [place] age 55, CVA in mother Hyperlipidemia 06/29/2022 [...] comfort level. Colitis 09/23/2012 Overview (06/29/2022): saw SEEMA Roach Immunizations Immunization Administration Dates Next Due Influenza Whole 06/21/2019 [...] Visit [facility] [address] [place] [address] Marbin Gonzalez MD [address] [facility] [address] [place] [address] Health Maintenance Due Date Last Done Comments Breast Cancer Screening 1955 Colorectal Cancer Screening: Annual FOBT 2002 Colorectal Cancer Screening: Colonoscopy 2002 Colorectal Cancer Screening: Sigmoidoscopy 2002 Pneumococcal Vaccine: 50+ Years Completed 01/31/2021, 01/26/2020 Pneumococcal Vaccine: Peds (0 to 5 Years) and At-Risk Patients (6 to 49 Years) Discontinued 01/31/2021, 01/26/2020 Influenza Vaccine Completed 06/01/2024, , 06/18/2020, Additional history exists Hepatitis B Vaccine Aged Out No longe r eligible based on patient's age to complete this topic Insurance [employer] [place] [id number] Medicare [facility] Medicare [facility] Care Teams Learning Technologist Relationship Specialty Start Date End Date Darnell Herron MD [address], [place] PCP - General 09/09/20
--- OUTSIDE RECORDS SUMMARY | 2024-12-15 15:08 | XMS_ITS ---
Author Organization [facility] Address [address] [place] [address] Care Team Providers Care Machine Shop Lead Man Name Role Phone Darnell Herron MD Primary Care Provider Emmanuel Henriquez Jr [phone] REASON FOR VISIT screening Encounters Encounter Location Date Provider Diagnosis [facility] [address] [place], [place] [id number] 12/07/2023 Emmanuel Roach Jr Encounter for screening colonoscopy Z12.11 and FH: colon polyps Z83.719 Assessments Encounter Date Diagnosis (ICD Code) Assessment Notes Treatment Notes Treatment Clinical Notes Section Notes 12/07/2023 Encounter for screening colonoscopy (ICD-10 - Z12.11) 12/07/2023 FH: colon polyps (ICD-10 - Z83.719) Plan Of Treatment No Information Progress Notes * MICHAELJADA CLOUD NDOB: [birth year] (69 yo F)Acc No.[id number]:12/07/2023 COLON WITH MAC Patient:?JADA RAMSEY Shyam Provider:?Emmanuel Roach MD :1955???Age:68 Y???Sex:Female D ate:12/07/2023 Address:[facility] [id number] Pcp:Darnell Herron MD Subjective: * Chief Complaints: [...] MD Date:?0 12/07/2023 Generated for Andrea cha/Blu/eTransmitting on:?12/15/2024 03:08 PM EDT
--- OUTSIDE RECORDS SUMMARY | 2024-12-15 15:08 | XMS_ITS | Patient Health Record ---
Author Organization [facility] Address [address] [place] [address] Care Team Providers Care Cytology Laboratory Manager Name Role Phone Darnell Herron MD Primary Care Provider Emmanuel Henriquez Jr Unavailable [phone] Allergies Allergen (clinical drug ingredient) Drug/Non Drug Allergy documented on EMR Reaction Allergy Type Onset Date Status hydrochlorothiazide Hydrochlorothiazide Unknown Drug Aller gy Active celecoxib Celebrex Unknown Drug Allergy Active sulfamethoxazole / trimethoprim Bactrim DS Unknown Drug Allergy Active sulfamethoxazole / trimethoprim Bactrim Unknown Drug Allergy Active 12 Hour Nasal [place] Unknown Drug Allergy Active vancomycin Vancomycin Unknown Drug Allergy Activ e ephedrine Ephedrine Unknown Drug Allergy Active Penicillin Unknown Drug Allergy Active phenazopyridine Pyridium Unknown Drug Allergy A ctive Levaquin Unknown Drug Allergy Active Reason For Referral [...] Problem Status W/U Status Risk Notes Problem 717424216 Colon cancer screening (Z12.11) Active confirmed Problem 653944046484689 longterm (current) use of aspirin (Z79.82) Active confirmed Problem 344787063 Clostridium difficile infection (B96.89) Active confirmed Problem 493527602 Esophageal dysmotility (K22.4) Active confirmed Problem 74767160 Abdominal pain, unspecified abdominal location (R10.9) Active confirmed Problem 48976030541111435 terminal clerk current use of diuretic (Z79.899) Active confirmed Plan Of Treatment Future Test Test Name Order Date COLONOSCOPY 10/05/2012 COLONOSCOPY 03/30/2018 COLONOSCOPY 11/04/2023 Insurance Providers Payer Name Payer Address Payer Phone Subscriber Number Group Number Insured Name Patient Relationship to Insured Coverage Start Date Coverage End Date MEDICARE OF [place] [address] [place] [address] [id number] JADA RAMSEY Self - patient is the insured [facility] INDEMNITY [address] [place] [address] [id number] JADA RAMSEY Self - patient is the [...]
--- OUTSIDE RECORDS SUMMARY | 2024-12-15 15:08 | XMS_ITS | Encounter Summary ---
Author Organization [facility] Address [address] [facility] [address] [place] [address] Phone Care Team Providers Care Transportation Specialist Name Role Phone Darnell Herron MD Primary Care Provider [phone] Encounter Details Date Type Department Care Team (Latest Contact Info) Description 07/09/2022 Office Communication [facility] [address] [facility] [address] [place] [address] Bri Ham Stage 3a chronic [...] you please put a new order into [facility] Ref Labs system for a renal function panel so pt could have it done before 07/27 appt. documented in this encounter Plan of Treatment Upcoming Encounters Date Type Department Care Team (Late st Contact Info) Description 08/27/2025 1:15 PM EST Office Visit [facility] [address] [place] [address] [place] [id number] Marbin Gonzalez MD [address] [place] [address] Scheduled Orders Name Type Priority Associated Diagnoses [...] Primary documented in this encounter Care Teams Transportation Specialist Relationship Specialty Start Date End Date Darnell Herron MD [address], [place] PCP - General 09/09/20 documented as of this encounter
--- OUTSIDE RECORDS SUMMARY | 2024-12-15 15:08 | XMS_ITS | Clinical Summary ---
Author Organization [facility] Address [address] [id number] Care Team Providers Care Cardiac Exercise Physiologist Name Role Phone Darnell Herron MD Primary Care Provider [phone] Allergies Active Allergy Reactions Criticality Noted Date [...] DAILY PO) Take by mouth. 0 Active [place]-3 Fatty Acids (FISH OIL PO) Take by [...] age to complete this topic Care Teams Cardiac Exercise Physiologist Relationship Specialty Start Date End Date Darnell Herron MD [address] [place] [address] [place] [address] PCP - General Internal Medicine 09/13/17
--- OUTSIDE RECORDS SUMMARY | 2024-12-15 15:08 | XMS_ITS ---
Author Organization [facility] Address [address] [place] [address] Care Team Providers Care Custom Shop Worker Name Role Phone Darnell Herron MD Primary Care Provider Emmanuel eHnriquez Jr Unavailable Allergies Allergen (clinical drug ingredient) Drug/Non Drug Allergy documented on EMR Reaction Allergy Type Onset Date Status hydrochlorothiazide Hydrochlorothiazide Unknown Drug Aller gy Active celecoxib Celebrex Unknown Drug Allergy Active sulfamethoxazole / trimethoprim Bactrim DS Unknown Drug Allergy Active sulfamethoxazole / trimethoprim Bactrim Unknown Drug Allergy Active 12 Hour Nasal [place] Unknown Drug Allergy Active vancomycin Vancomycin Unknown Drug Allergy Activ e ephedrine Ephedrine Unknown Drug Allergy Active Penicillin Unknown Drug Allergy Active phenazopyridine Pyridium Unknown Drug Allergy A ctive Levaquin Unknown Drug Allergy Active REASON FOR VISIT [...] Problem Status W/U Status Risk Notes Problem 751040482 Esophageal dysmotility (K22.4) Active confirmed Problem 03368721256156323 halfway current use of diuretic (Z79.899) Active confirmed Vital Signs Temperature 96.9 degrees Fahrenheit 11/04/19 24 Blood pressure systolic 00 mm Hg 11/04/19 24 Blood pressure diastolic 00 mm Hg 024 Height 64.50 in 11/04/2023 Weight 191 lbs 11/04/2023 BMI 32.28 kg/m2 11/04/2023 Encounters Encounter Location Date Provider Diagnosis [facility] [address] [place] [address] 11/04/2023 Emmanuel Roach Jr Colon cancer screening Z12.11 ; Esophageal dysmotility K22.4 and halfway current use of diuretic Z79.899 Assessments Encounter Date Diagnosis (ICD Code) Assessment Notes Treatment Notes Treatment Clinical Notes Section Notes 11/04/2023 Colon cancer screening (ICD-10 - Z12.11) We discussed her upper GI symptoms today. They do appear consistent with esophageal dysmotility. She can continue to use kosz-qjm-wwinieu antacids for any acid reflux component. If [...] esophageal dysmotility. She can continue to use xlcz-gdk-kawlcik antacids for any acid reflux component. If [...] chlorthalidone the day before the procedure. 11/04/2023 termite treater helper current use of diuretic (ICD-10 - Z79.899) We discussed her upper GI symptoms today. They do appear consistent with esophageal dysmotility. She can continue to use grxf-bcx-dxytzra antacids for any acid reflux component. If [...] Up: 1 Year, Reason: Progress Notes * MICHAELDOROTHEA CLOUDE NDOB: 3 (68 yo F)Acc No.[id number]:11/04/2023 Progress Notes Patient:?JADA RAMSEY N Provider:?Emmanuel Roach MD :1955???Age:68 Y???Sex:Female D ate:11/04/2023 Address:[address] [place] [address] , [place], [facility] Pcp:Darnell Herron MD Subjective: * Chief Complaints: [...] Celebrex, Hydrochlorothiazide, Penicillin, Pyridium, 12 Hour Nasal [place], Vancomycin, Bactrim DS, Ephedrine. Objective: * Vitals:?Wt: [...] dysmotility - K22.4 (Primary)?2.?Colon cancer screening - Z12.11?3.?halfway current use of diuretic - Z79.899? We discussed her upper GI sy mptoms today. They do appear consistent with esophageal dysmotility. She can continue to use fdcd-anl-irylbwv antacids for any acid reflux component. If [...] Provider:?Emmanuel Roach MD Date:?0 11/04/2023 Generated for Zainabi starla/Blu/eTransmitting on:?12/15/2024 03:08 PM EDT History and Physical Notes * [...]
--- OUTSIDE RECORDS SUMMARY | 2024-12-15 15:08 | XMS_ITS | Data Portability ---
Author Organization [facility] [place] Address [address] [facility] [address] [place] [address] Care Team Providers Care Customer Service Leader Name Role Phone JOSE NESBITT Referring Provider [phone] Assessment Encounter Date Assessment Date Assessment LastModified [...] findings at length with the patient today. ? ? ?We discussed the nature and etiology of this problem along with current treatment options. We discussed the expected course and outcomes and what to expect. We also discussed risks and benefits. ? ? ? All of their questions were answered today, and there was exhibited understanding and comprehension of all that was discussed. Time Spent: 10 minutes were spent reviewing previous imaging and charting. ? ? ?10 minutes were spent obtaining patient history. ? ? ?5 minutes were spent on physical exam. ? ? ?5? ? ?minutes were spent explaining diagnosis and assessment. Today's [...] knee, 3 view 023 04/15/20 23 [email or web address] [facility], [address], [place], [address], 11:24:06 Medication Orders None record ed. Patient TargetsNo targets recorded. Patient Instructions Encounter Date Encounter Id Patient Instructions Last Modified By Organization Details Last Modified Time 04/15/2023 [id number] X-rays of the left knee reveal well-seated well-positioned left total knee arthroplasty without sign of loosening. No acute bony abnormality. Not available 04/16/2023 08:08:21 Reason for Referral None Reported. Procedures Surgical History Date Name Laterality Status Provider Name and Address Organization Details Recorded Time Head or Neck Surgery completed [facility] 04/15/2023 15:49:23 total knee replacement completed [facility] 04/15/2023 15:49:59 procedure on tonsils completed [facility] 04/15/2023 15:50:14 section completed [facility] 04/15/2023 15:50:23 lithotripsy completed [facility] 04/15/2023 15:50:59 Imaging Results None recorded. Procedure Notes None recorded. Medical Equipment None Reported. Allergies Allergen ID Allergen Name Allergen Category Reaction Reaction Severity Criticality Documentation Date Start Date Code Code System Note Provider Name and Address Organization Details Recorded Time 7295 Product containin g penicilli n (product) medicatio n Not available Not available Not available 04/15/2023 79270 8001 SNOMED Mayuri Saldaña null, [place] [facility] 3 15:41:41 7296 Levaquin medicatio n Not available Not available Not available 04/15/2023 50281 2 RxNorm Mayuri Saldaña null, [place] [facility] 3 15:41:49 7297 Bactrim medicatio n Not available Not available Not available 04/15/2023 59831 9 RxNorm Mayuri Saldaña null, [place] [facility], [facility] 3 15:42:26 7298 Celebrex medicatio n Not available Not available Not available 04/15/2023 41136 7 RxNorm Mayuri Saldaña null, [place] [facility], [facility] 3 15:42:36 7299 Non-stero idal anti-infl ammatory agent (product) medicatio n Not available Not available Not available 04/15/2023 18584 005 SNOMED Mayuri Saldaña null, [place] [facility], [facility] 3 15:43:29 Medications Name Sig Start [...] COVID-19 Antigen Home Test kit REFER TO JESSIEI ONS ON MANUFACTU RER LABEL 04/15 completed Not Available Not Available Not Available Vitals Date Recorded Body height Body mass index (BMI) Body weight Provider Name and Address Organization Details Last Updated DateTime 04/15/2023 165.1 cm 30 kg/m2 48024.63 g Mayuri Saldaña [place] [facility], 04/15/2023 15:43:46 Social History Question Answer Notes LastModified by Organizat ion Details LastModified Time Tobacco Smoking Status Never Smoker Mayuri Saldaña [facility], [place] [facility], 04/15/2023 15:53:10 What Is Your Level Of [...] SNOMED-CT Code Diagnosis ICD10 Code Diagnosis Note [id number] MD JOHNSON Spence [facility] [address] [facility] [address] [place] [address] 04/15/2023 10:48:00 04/15/2023 11:24:05 History of left total knee replacement [id number] 324455 Z96.652 Health Concerns Section Related Observation LastModified by Organization Detai ls LastModified Time None Recorded Concern Status LastModified by Organization Details LastModified Time None Recorded Advance Directives Directive None Recorded Payers Encounter Date Sequence Insurance Name Policy Number Policy Magana Covered Member ID Magaan Member ID Guarantor Name 04/15/2023 1 [place] [employer] Juve Shyam Searskianroberto [id number] Juve Licona 04/15/2023 2 [facility] (MEDICARE SUPPLEMENT) [id number] Juve Shyam Licona [id number] Juve Monae Notes Date Note Type Note Provider Name and Address Organization Details Recorded Time 04/15/2023 text/html This is a very pleasant 67-year-old female here for follow-up on her left total knee arthroplasty performed by Dr. Jang on 01/03/2018. Patient states she is feeling well. She does her stretching exercises. She has occasional discomfort that is tolerable and manageable with itmn-ifr-szhwnmw pain medication when she overdoes it. No other complaints at this time. JAVON CHOWDARY PA-C [address] [facility], [place], [address], [place] [facility], 04/16/2023 08:08:46 OBGyn Episode No OBEpisode recorded.
== END 2024-12-15 14:58 | disposition home or self-care (01) ==
LOC: HO.US 14:57
PROVIDERS: Visit Provider Urology
DX: Q61.5 Medullary cystic kidney (principal)
CPT/HCPCS: 76775

== ENCOUNTER → 2024-12-15 15:03 | Outpatient (BNV) | payer MEDICARE, OTHER, SELFPAY | PROVIDERS: Visit Provider Radiology Diagnostic Radiology | DX: N20.0 Calculus of kidney (principal) | CPT/HCPCS: 76775 ==

== ENCOUNTER 2025-01-11 09:11 | Outpatient (AMB) | payer MEDICARE, OTHER, SELFPAY ==
--- NOTE | 2025-01-11 09:12 | MHC.OFFVIS ---
Intake Visit Reasons: 6m/US Intake Note: Pt presents to the office today for a 6 month follow up/US. Allergies cefazolin Allergy (Intermediate, Verified 01/11/25 09:13) Itching celecoxib [From CELEBREX] Allergy (Intermediate, Verified 01/11/25 09:13) HIVES ciprofloxacin [From CIPRO] Allergy (Intermediate, Verified 01/11/25 09:13) HIVES clindamycin [CLINDAMYCIN] Allergy (Intermediate, Verified 01/11/25 09:13) C-DIF hydrochlorothiazide [HYDROCHLOROTHIAZIDE] Allergy (Intermediate, Verified 01/11/25 09:13) HIVES levofloxacin [From LEVAQUIN] Allergy (Intermediate, Verified 01/11/25 09:13) HIVES Penicillins [PENICILLINS] Allergy (Intermediate, Verified 01/11/25 09:13) HIVES Sulfa (Sulfonamide Antibiotics) [SULFA (SULFONAMIDE ANTIBIOTICS)] Allergy (Intermediate, Verified 01/11/25 09:13) HIVES trimethoprim Allergy (Intermediate, Verified 01/11/25 09:13) Angioedema phenazopyridine [Pyridium] Allergy (Mild, Verified 01/11/25 09:13) Rash sulfamethoxazole [From Bactrim] Allergy (Mild, Verified 01/11/25 09:13) rash vancomycin Adverse Reaction (Intermediate, Verified 01/11/25 09:13) Rash From TORADOL Allergy (Intermediate, Uncoded 01/11/25 09:13) ? LETHARGY bactrim Allergy (Unknown, Uncoded 01/11/25 09:13) Unknown HPI Comments Details: Juve is a pleasant female. She is a patient of Dr Herron. She is seen for the following urologic conditions - Nephrology - Dr Gonzalez - nephrolithiasis - Medullary sponge kidney Six-month follow-up Continue with vitamin B6, citrate, lemon juice, chlorthalidone Prior 24 hour urine Good urine output, low sodium, low calcium, average oxalate Main issue we talked about was citrate. Despite 60 mEq daily citrate less than 300. She is on maximal tolerated citrate therapy. Previously had tried powder but associated with diarrhea. Continue surveillance imaging More stone burden right side stone burden has slowed substantially with combination therapy using potassium citrate, chlorthalidone, vitamin B6 Has chlorthalidone from Nephrology Nephrolithiasis Patient with medullary sponge kidney who is a chronic stone former with a history of multiple ESWL as the patient does not tolerate stents. Imaging - US 09/19 1.9 cm right renal stone was 0.8 cm left renal stone - 11/17 US right renal stone 1.2 cm, left renal stone 6 mm - 03/19 renal ultrasound bilateral Medullary sponge no clear definitive stones - 12/19 renal ultrasound Medullary sponge kidney 6 mm stones bilateral - 08/20 renal ultrasound Medullary sponge kidney bilateral submucosal calcifications - 07/22 renal ultrasound - bilateral stones Medullary sponge kidney left worse than right - 02/20 renal ultrasound bilateral stones, Medullary sponge kidney, up to 7 mm right, 6 mm left Interventions - 11/17 ESWL left and right side separate. - 12/18 right ureteroscopy - significant amount of imbedded stone material with post pyelonephritis requiring IV antibiotics - 06/19 left ureteroscopy with similar amount of imbedded stone as right side - 01/18 left ureteroscopy with imbedded stone - 10/23 left ureteroscopy with small imbedded submucosal stones 24 hour urines - 01/17 great urine output, normal calcium, normal oxalate, normal sodium, borderline citrate - 3 L urine output - add potassium citrate - 08/21 good urine output, calcium okay at 01:50, sodium 135 could be around 100, citrate 280 despite supplementation, oxalate 36, pH 7.5 PFSH Medical History PONV (postoperative nausea and vomiting) Herniated disc, cervical Arthritis Back pain Thyroid disease History of colitis Sleep apnea Elevated cholesterol Cervical cancer Renal stones Surgical History Hx of fusion of cervical spine Hx of lithotripsy Hx of tonsillectomy Hx of total knee arthroplasty H/O colonoscopy Hx of cystoscopy History of Social History Are you a primary floor care specialist to a significant other at home: No Do you presently have visiting nurse or other home services: No Alcohol intake: never Patient Tobacco Use Status: Never used Tobacco Current occupational status: retired Assessment & Plan Assessment & Plan (1) Renal stones: Code(s): N20.0 - Calculus of kidney Category: Medical (2) Medullary sponge kidney: Code(s): Q61.5 - Medullary cystic kidney Category: Medical Plan Refill medications Six-month follow-up imaging Orders: Orders US renal BI 01/09/25 Q61.5 - Medullary cystic kidney CT kidney stone 6 Months Q61.5 - Medullary cystic kidney Patient Instructions: This note is constructed using voice recognition software. While every effort has been made to ensure accuracy landfill gas collection operator errors may have been included. Imaging studies, laboratory and physical exam results were discussed and reviewed in detail. No major barriers to patient understanding were identified. An opportunity to ask questions regarding the treatment plan was provided. All questions were answered. The patient expressed understanding and agreement with the above treatment plan. The patient is aware they should contact our office by phone for worsening of their current condition or the appearance of new urologic symptoms. Compliance is encouraged with any medications and followup testing that is ordered. It is a privilege to participate in the urologic care of your patient. If you have any questions or concerns regarding treatment for the above conditions, or other urologic issues, please do not hesitate to contact me. The office telephone contact is [phone]. Sincerely, Dr Beau Cuevas MD, [facility] - Urology Compassionate Specialist Care for the Genitourinary System Coding Level of Care Code Est Pt Level 3 (16580) Complex EM visit Add On G2211 Diagnoses Renal stones N20.0 Medullary sponge kidney Q61.5
--- OUTSIDE RECORDS SUMMARY | 2025-01-11 09:43 | XMS_ITS ---
Author Organization [facility] Address [address] [place] [address] Care Team Providers Care Magnet Placer Name Role Phone Darnell Herron MD Primary Care Provider Emmanuel Henriquez Jr Unavailable Allergies Allergen (clinical drug ingredient) Drug/Non Drug Allergy documented on EMR Reaction Allergy Type Onset Date Status hydrochlorothiazide Hydrochlorothiazide Unknown Drug Aller gy Active celecoxib Celebrex Unknown Drug Allergy Active sulfamethoxazole / trimethoprim Bactrim DS Unknown Drug Allergy Active sulfamethoxazole / trimethoprim Bactrim Unknown Drug Allergy Active 12 Hour Nasal [place] Unknown Drug Allergy Active vancomycin Vancomycin Unknown [...] Problem Status W/U Status Risk Notes Problem 493802772 Esophageal dysmotility (K22.4) Active confirmed Problem 50277031116391084 [facility] current use of diuretic (Z79.899) Active confirmed Vital Signs Temperature 96.9 degrees Fahrenheit 11/04/19 24 Blood pressure systolic 00 mm Hg 11/04/19 24 Blood pressure diastolic 00 mm Hg 024 Height 64.50 in 11/04/2023 Weight 191 lbs 11/04/2023 BMI 32.28 kg/m2 11/04/2023 Encounters Encounter Location Date Provider Diagnosis [facility] [address] [place] [address] 11/04/2023 Emmanuel Roach Jr Colon cancer screening Z12.11 ; Esophageal dysmotility K22.4 and [facility]FP current use of diuretic Z79.899 Assessments Encounter Date Diagnosis (ICD Code) Assessment Notes Treatment Notes Treatment Clinical Notes Section Notes 11/04/2023 Colon cancer screening (ICD-10 - Z12.11) We discussed her upper GI symptoms today. They do appear consistent with esophageal dysmotility. She can continue to use ldtp-mcg-jaywjtw antacids for any acid reflux component. If [...] esophageal dysmotility. She can continue to use iiqp-nxd-tfvdoue antacids for any acid reflux component. If [...] chlorthalidone the day before the procedure. 11/04/2023 [employer] current use of diuretic (ICD-10 - Z79.899) We discussed her upper GI symptoms today. They do appear consistent with esophageal dysmotility. She can continue to use vusw-wuq-izsubhl antacids for any acid reflux component. If [...] MICHAELDOROTHEA CLOUDE NDOB: [birth year] (68 yo F)Acc No.[id number]:11/04/2023 Progress Notes Patient:?JADA RAMSEY N Provider:?Emmanuel Roach MD :1955???Age:68 Y???Sex:Female D ate:11/04/2023 Address:[address] [place] [address] , [place], [id number] Pcp:Darnell Herron MD Subjective: * Chief Complaints: [...] Celebrex, Hydrochlorothiazide, Penicillin, Pyridium, 12 Hour Nasal [place], Vancomycin, Bactrim DS, Ephedrine. Objective: * Vitals:?Wt: [...] dysmotility - K22.4 (Primary)?2.?Colon cancer screening - Z12.11?3.?super[employer] current use of diuretic - Z79.899? We discussed her upper GI sy mptoms today. They do appear consistent with esophageal dysmotility. She can continue to use wayo-nri-veghvbz antacids for any acid reflux component. If [...] MD Date:?0 11/04/2023 Generated for Zainabi starla/Blu/eTransmitting on:?01/11/2025 09:43 AM EDT History and Physical Notes * [...]
--- OUTSIDE RECORDS SUMMARY | 2025-01-11 09:43 | XMS_ITS | Encounter Summary ---
Author Organization [facility] Address [address] [facility] [address] [place] [address] Phone Care Team Providers Care Cigarette Tester Name Role Phone Darnell Herron MD Primary Care Provider [phone] Encounter Details Date Type Department Care Team (Latest Contact Info) Description 07/09/2022 Office Communication [facility] [address] [facility] [address] [place] [address] Bri Ham Stage 3a chronic [...] you please put a new order into [facility] system for a renal function panel so pt could have it done before 07/27 appt. documented in this encounter Plan of Treatment Upcoming Encounters Date Type Department Care Team (Late st Contact Info) Description 08/27/2025 1:15 PM EST Office Visit [facility] [address] [place] [place] [id number] Marbin Gonzalez MD [address] [place] [address] Scheduled Orders Name Type Priority Associated Diagnoses [...] Primary documented in this encounter Care Teams Cigarette Tester Relationship Specialty Start Date End Date Darnell Herron MD [address] [place], [place] PCP - General 09/09/20 documented as of this encounter
--- OUTSIDE RECORDS SUMMARY | 2025-01-11 09:43 | XMS_ITS | Data Portability ---
Author Organization [place] [facility] Address [address] [place] [address] Care Team Providers Care Cryptologic Linguist Name Role Phone JOSE NESBITT Primary Care Provider Assessment Encounter Date Assessment Date Assessment [...] By Organization Details Last Modified Time 03/05/2022 [id number] You came to the ED for evaluation [...] completed SALAS RICARDO NP [address], [place], [address], [place] [facility] 03/05/2022 16:19:48 total replacement of left knee joint completed SALAS RICARDO NP [address], [place], [address], [place] [facility] 03/05/2022 15:00:24 excision of cervical intervertebral disc completed SALAS RICARDO NP [address], [place], [address], [place] [facility] 03/05/2022 15:00:41 Imaging Results None recorded. Procedure [...] History Nothing Reported. Medical History Condition Response Coronary Artery Disease N Parkinson's Disease N Depression N COPD N Hypothyroidism Y A-fib N Diabetes N CHF N Cancer Y Dementia N Stroke N Asthma N High Cholesterol Y Rheumatoid Arthritis N Pulmonary Embolism N Hypertension N Kidney Disease N Gynecological HistoryNo gynecological history recorded. Obstetrics History GPAL:G 0 P 0 0 0 0 Past Encounters Encounter ID Performer Location Encounter Start Date Encounter Closed Date Diagnosis/Indication Diagnosis SNOMED-CT Code Diagnosis ICD10 Code Diagnosis Note [id number] SALAS RICARDO NP [facility] [address] [place] [address] 03/05/2022 14:50:04 03/06/2022 10:07:00 Atypical chest pain 036374974 R07.89 COVID-19 588135315 U07.1 Health Concerns Section Related Observation LastModified by Organization Detai ls LastModified Time None Recorded Concern Status LastModified by Organization Details LastModified Time None Recorded Advance Directives Directive None Recorded Payers Insurance Date Sequence Insurance Name Policy Number Policy Magana Covered Member ID Magana Member ID Guarantor Name 03/12/2022 2 [facility] [place] [facility] PLAN F (MEDICARE SUPPLEMENT) [id number] Juve Licona [id number] Juve Licona 03/12/2022 1 [place] [facility] Juve Licona [id number] Juve Licona 03/06/2022 1 *SELF PAY* Juve Licona [id number] Juve Licona Notes Date Note Type Note [...] her PCP office who had patient [facility] for evaluation.Pt currently has minimal chest discomfort that is midsternal and non radiating. She denies any shortness of breath, activity intolerance, nausea, vomiting or diaphoresis. She denies any leg swelling. SALAS RICARDO NP [address], [place], [address], [place] [facility] 03/05/2022 16:36:15 OBGyn Episode No OBEpisode recorded.
--- OUTSIDE RECORDS SUMMARY | 2025-01-11 09:44 | XMS_ITS | Clinical Summary ---
Author Organization [facility] Address [address] [place] [address] Phone Care Team Providers Care Forwarder Operator Name Role Phone Darnell Herron MD Primary Care Provider [phone] Allergies Active Allergy Reactions Criticality Noted Date [...] FH: Cardiovascular disease 06/29/2022 Overview (06/29/2022): father [place] age 55, CVA in mother Hyperlipidemia 06/29/2022 [...] [facility] [address] [place] [address] Marbin Gonzalez MD 1955 [facility] [address] [place] [address] Health Maintenance Due Date Last [...] patient's age to complete this topic Insurance [employer] [place] [id number] Medicare [facility] Medicare [facility] Care Teams Forwarder Operator Relationship Specialty Start Date End Date Darnell Herron MD [address], [place] PCP - General 09/09/20
--- OUTSIDE RECORDS SUMMARY | 2025-01-11 09:44 | XMS_ITS | Clinical Summary ---
Author Organization [facility] Address [address] [id number] Care Team Providers Care Small Offset Printer Name Role Phone Darnell Herron MD Primary Care Provider Allergies Active Allergy Reactions Criticality Noted Date [...] DAILY PO) Take by mouth. 0 Active [place]-3 Fatty Acids (FISH OIL PO) Take by [...] age to complete this topic Care Teams Small Offset Printer Relationship Specialty Start Date End Date Darnell Herron MD [address] [place] [address] [place] [address] PCP - General Internal Medicine 09/13/17
--- OUTSIDE RECORDS SUMMARY | 2025-01-11 09:44 | XMS_ITS ---
Author Organization [facility] Address [address] [place] [address] Care Team Providers Care Board Machine Set Up Operator Name Role Phone Darnell Herron MD Primary Care Provider Emmanuel Henriquez Jr REASON FOR VISIT screening Encounters Encounter Location Date Provider Diagnosis [facility] [address] [place], [place] [id number] 12/07/2023 Emmanuel Roach Jr Encounter for screening colonoscopy Z12.11 and FH: colon polyps Z83.719 Assessments Encounter Date Diagnosis (ICD Code) Assessment Notes Treatment Notes Treatment Clinical Notes Section Notes 12/07/2023 Encounter for screening colonoscopy (ICD-10 - Z12.11) 12/07/2023 FH: colon polyps (ICD-10 - Z83.719) Plan Of Treatment No Information Progress Notes * MICHAELJADA CLOUD NDOB: 3 (69 yo F)Acc No.[id number]:12/07/2023 COLON WITH MAC Patient:?JADA RAMSEY Shyam Provider:?Emmanuel Roach MD :1955???Age:68 Y???Sex:Female D ate:12/07/2023 Address:[facility] [id number] Pcp:Darnell Herron MD Subjective: * Chief Complaints: [...] MD Date:?0 12/07/2023 Generated for Andrea cha/Blu/eTransmitting on:?01/11/2025 09:43 AM EDT
--- OUTSIDE RECORDS SUMMARY | 2025-01-11 09:44 | XMS_ITS | Data Portability ---
Author Organization [facility] Address [address] [facility] [address] [place] [address] Care Team Providers Care Access Liaison Name Role Phone JOSE NESBITT Referring Provider [phone] Assessment Encounter Date Assessment Date Assessment LastModified [...] knee, 3 view 023 04/15/20 23 [email or web address] [facility], [address], [place], [address], 11:24:06 Medication Orders None record ed. Patient TargetsNo targets recorded. Patient Instructions Encounter Date Encounter Id Patient Instructions Last Modified By Organization Details Last Modified Time 04/15/2023 [id number] X-rays of the left knee reveal well-seated well-positioned left total knee arthroplasty without sign of loosening. No acute bony abnormality. Not available 04/16/2023 08:08:21 Reason for Referral None Reported. Procedures Surgical History Date Name Laterality Status Provider Name and Address Organization Details Recorded Time Head or Neck Surgery completed [facility] 04/15/2023 15:49:23 total knee replacement completed [facility] 04/15/2023 15:49:59 procedure on tonsils completed [facility] 04/15/2023 15:50:14 section completed [facility] 04/15/2023 15:50:23 lithotripsy completed [facility] 04/15/2023 15:50:59 Imaging Results None recorded. Procedure Notes None recorded. Medical Equipment None Reported. Allergies Allergen ID Allergen Name Allergen Category Reaction Reaction Severity Criticality Documentation Date Start Date Code Code System Note Provider Name and Address Organization Details Recorded Time 7295 Product containin g penicilli n (product) medicatio n Not available Not available Not available 04/15/2023 65444 8001 SNOMED Mayuri Saldaña null, [place] [facility] 3 15:41:41 7296 Levaquin medicatio n Not available Not available Not available 04/15/2023 78327 2 RxNorm Mayuri Saldaña null, [place] - [facility] 3 15:41:49 7297 Bactrim medicatio n Not available Not available Not available 04/15/2023 65361 9 RxNorm Mayuri Saldaña null, [place] - [facility] 3 15:42:26 7298 Celebrex medicatio n Not available Not available Not available 04/15/2023 48326 7 RxNorm Mayuri Saldaña null, [place] - [facility] 3 15:42:36 7299 Non-stero idal anti-infl ammatory agent (product) medicatio n Not available Not available Not available 04/15/2023 57754 005 SNOMED Mayuri Saldaña null, [place] [facility] 3 15:43:29 Medications Name Sig Start [...] Antigen Home Test kit REFER TO JESSIEI JAYE ON [employer] LABEL 04/15 completed Not Available Not Available Not Available Vitals Date Recorded Body height Body mass index (BMI) Body weight Provider Name and Address Organization Details Last Updated DateTime 04/15/2023 165.1 cm 30 kg/m2 65237.[address]ña [place] [facility], 04/15/2023 15:43:46 Social History None recorded. Functional Status Question Answer Note LastModified by Organizat ion Details LastModified Time How many times per week do you consume alcohol? Less than 1 time per week Information not available 04/15/2023 Do you use any illicit or recreational drugs? No Information not available 04/15/2023 Do you or have you ever used any other forms of tobacco or nicotine? No Information not available 04/15/2023 What is your level of alcohol consumption? Occasional Information not available 04/15/2023 Mental Status None recorded. Family History Relationship [...] SNOMED-CT Code Diagnosis ICD10 Code Diagnosis Note [id number] [facility] [address] [facility] [address] [place] [address] 04/15/2023 10:48:00 04/15/2023 11:24:05 History of left total knee replacement 2617844601 175434 Z96.652 Health Concerns Section Related Observation LastModified by Organization Detai ls LastModified Time None Recorded Concern Status LastModified by Organization Details LastModified Time None Recorded Advance Directives Directive None Recorded Payers Encounter Date Sequence Insurance Name Policy Number Policy Magana Covered Member ID Magana Member ID Guarantor Name 04/15/2023 1 [place] [employer] Juve Licona [id number] Juve Licona 04/15/2023 2 [facility]AN F (MEDICARE SUPPLEMENT) [id number] Juve Licona [id number] Juve Licona Notes Date Note Type Note Provider Name and Address Organization Details Recorded Time 04/15/2023 text/html This is a very pleasant 67-year-old female here for follow-up on her left total knee arthroplasty performed by Dr. Jang on 01/03/2018. Patient states she is feeling well. She does her stretching exercises. She has occasional discomfort that is tolerable and manageable with faju-lys-yzgzcha pain medication when she overdoes it. No other complaints at this time. JAVON CHOWDARY PA-C [address] [facility] [address], [place], [address], [place] [facility], 04/16/2023 08:08:46 OBGyn Episode No OBEpisode recorded.
--- OUTSIDE RECORDS SUMMARY | 2025-01-11 09:44 | XMS_ITS | Patient Health Record ---
Author Organization [facility] Address [address] [place] [address] Care Team Providers Care Integrity Manager Name Role Phone Darnell Herron MD [...] Unknown Drug Allergy Active 12 Hour Nasal [place] Unknown Drug Allergy Active vancomycin Vancomycin Unknown [...] Problem Status W/U Status Risk Notes Problem 713850716 Colon cancer screening (Z12.11) Active confirmed Problem 008080854989390 detention (current) use of aspirin (Z79.82) Active confirmed Problem 489488596 Clostridium difficile infection (B96.89) Active confirmed Problem 035655485 Esophageal dysmotility (K22.4) Active confirmed Problem 25829308 Abdominal pain, unspecified abdominal location (R10.9) Active confirmed Problem 25306982279320128 detention current use of diuretic (Z79.899) Active confirmed Plan Of Treatment Future Test Test Name Order Date COLONOSCOPY 10/05/2012 COLONOSCOPY 03/30/2018 COLONOSCOPY 11/04/2023 Insurance Providers Payer Name Payer Address Payer Phone Subscriber Number Group Number Insured Name Patient Relationship to Insured Coverage Start Date Coverage End Date MEDICARE OF [place] [address] [place] [address] [id number] JADA RAMSEY Self - patient is the insured [facility] IN[facility] [address] [place] [address] [id number] JADA RAMSEY Self - patient is the [...]
== END 2025-01-11 09:37 | disposition home or self-care (01) ==
LOC: HO.HUSH 09:12
PROVIDERS: PCP Internal Medicine; Visit Provider Urology
DX: N20.0 Calculus of kidney (principal); Q61.5 Medullary cystic kidney
CPT/HCPCS: 99213; G2211

== ENCOUNTER → 2025-01-11 09:11 | Outpatient (BNVA) | payer MEDICARE, OTHER, SELFPAY | PROVIDERS: PCP Internal Medicine; Visit Provider Urology | DX: Q61.5 Medullary cystic kidney (principal); N20.0 Calculus of kidney | CPT/HCPCS: 99212 ==

== ENCOUNTER 2025-07-07 07:43 | Outpatient (REF) | payer MEDICARE, OTHER, SELFPAY ==
--- OUTSIDE RECORDS SUMMARY | 2025-07-06 23:59 | XMS_ITS | Continuity of Care Document ---
Author Organization [facility] Address [address] [place] [address]- Care Team Providers Care Head Of It Name Role Phone Germaine ROBLERO, Darnell Primary Care Physician [phone] Encounter [facility] Date(s): 06/06/25 - 07/06/25 [facility] [address] [place] [address]- Encounter Type: Triage Allergies, Adverse Reactions, Alerts Substance Criticality Severity Reaction Reaction Severity Status clindamycin C-Diff Active ceFAZolin rash Active sulfADIAZINE hives Active trimethoprim Active hydrochlorothiazide hives Active scopolamine rash Active penicillins rash Active Levaquin itchy,hives Active Bactrim Active Celebrex hives Active Immunizations Given and Recorded Vaccine Date Status Refusal Reason Influenza Virus Vaccine (oldterm) 06/01/24 Recorde d Influenza Virus Vaccine (oldterm) 06/21/19 Recorde d SARS-CoV-2(COVID-19)mRNA-LNP vac([id number]) 05/10/24 Recorded influenza virus vaccine, inactivated 06/07/23 Marty rded influenza virus vaccine, inactivated 06/01/22 Marty rded influenza virus vaccine, inactivated 06/17/21 Marty rded influenza virus vaccine, inactivated 06/18/20 Give n influenza virus vaccine, inactivated 06/07/18 Give n influenza virus vaccine, inactivated 1 11/09/15 Gi ran influenza virus vaccine, inactivated 11/08/15 Marty rded influenza virus vaccine, inactivated 2 11/27/12 Gi ran [id number] bivalent booster vax 02/13/23 Recorded [id number] bivalent booster vax 06/19/22 Recorded tetanus/diphtheria/pertussis, acel(Tdap) 06/10/22 Recorded SARS-CoV-2 mRNA ([id number]) vax 12/21/21 Recorded SARS-CoV-2 (COVID-19) mRNA BNT-162b2 vac 07/03/21 Recorded SARS-CoV-2 (COVID-19) mRNA BNT-162b2 vac 11/28/20 Given SARS-CoV-2 (COVID-19) mRNA BNT-162b2 vac 11/28/20 Recorded SARS-CoV-2 (COVID-19) mRNA BNT-162b2 vac 11/07/20 Given SARS-CoV-2 (COVID-19) mRNA BNT-162b2 vac 11/07/20 Recorded pneumococcal 23-valent vaccine 3 01/31/21 Given pneumococcal 13-valent vaccine 4 01/26/20 Given Tet/Diphth/Acel, Pertussis (oldterm) 09/11/11 Give n 1Result Comment: [12/10/2015] at hospital 2Result Comment: [10/27/2013] per pt history 3Result Comment: [facility] [id number] 4Result Comment: [facility]: [id number] Medications Chlorthalidone = 25 mg, By Mouth, Daily, 0 Refills, Maintenance, 01/04/12 11:11:01 AM EDT Start Date: 01/04/12 Status: Ordered Medication Dispense Status: Completed Total Allowed Fills: 1 Fills Dispensed: 0 Compazine Tablet = 10 mg, Intramuscular, Daily, PRN as needed for nausea/vomiting, 0 Refills, Maintenance, 12/17/17 8:37:51 AM EDT Start Date: 12/17/17 Status: Ordered Medication Dispense Status: Completed Total Allowed Fills: 1 Fills Dispensed: 0 CPAP Machine See Instructions, # 1 each, Maintenance, CPAP at a pressure range of 9 to 14 cm H2O, along with a small sized Activa LT nasal mask. Heated humidification should be included set to patient comfort level. DX FRANK TANYA: LIFETIME, 04/17/20 1:33:00 PM EDT, Compound Start Date: 04/17/20 Status: Ordered Medication Dispense Status: Completed Quantity: 1.0 Unit: each Total Allowed Fills: 1 Fills Dispensed: 0 CPAP Equipment See Instructions, # 1 each, Refills 11, Tot. Refills 11, Maintenance, Cpap supplies- mask, tubing, filters, headgear, water chamber dx FRANK G47.33 TANYA: LIFETIME, 04/17/20 1:33:00 PM EDT, Compound Start Date: 04/17/20 Status: Ordered Medication Dispense Status: Completed Quantity: 1.0 Unit: each Total Allowed Fills: 12 Fills Dispensed: 0 Cranberry 0 Refills, Maintenance, 11/24/21 9:09:00 AM EDT, Partial fill upon patient request if the prescription is for a schedule II opioid drug. Start Date: 11/24/21 Status: Ordered Medication Dispense Status: Completed Total Allowed Fills: 1 Fills Dispensed: 0 cyclobenzaprine 5 mg oral tablet 1 tablet, By Mouth, 3 times a day, # 42 tablet, 1 Refills, Maintenance, 09/17/22 8:32:00 PM EST, [facility], 165, cm, 03/06/22 10:30:00 EDT, Height Start Date: 09/17/22 Stop Date: 10/01/22 Status: Ordered Medication Dispense Status: Completed Quantity: 42.0 Unit: tablet Total Allowed Fills: 1 Fills Dispensed: 0 Fish Oil 500 mg oral capsule 2 capsule = 1,000 mg, By Mouth, Daily, 0 Refills, Maintenance, 01/31/21 8:33:00 AM EDT, Capsule, Partial fill upon patient request if the prescription is for a schedule II opioid drug. Start Date: 01/31/21 Status: Ordered Medication Dispense Status: Completed Total Allowed Fills: 1 Fills Dispensed: 0 levothyroxine 0.05 mg oral tablet See Instructions, 1 tablet By Mouth 6 days of each week; do not take any levothyroxine on one day of each week, # 30 each, 11 Refills, Maintenance, 06/06/25 8:13:00 AM EDT, Tablet, [facility]/pharmacy #[id number],Partial fill upon patient request if the prescription is for a schedule II opioid drug., 165, cm, 05/29/25 11:00:00 EDT, Height, 85.8, kg, 06/29/23 9:15:00 EDT, Dry Weight Start Date: 06/06/25 Status: Ordered Medication Dispense Status: Completed Quantity: 30.0 Unit: each Total Allowed Fills: 12 Fills Dispensed: 0 nitroglycerin 0.4 mg sublingual tablet 1 tablet = 0.4 mg, Sublingual, Every 5 minutes, PRN for chest pain, # 30 tablet, 4 Refills, Maintenance, 02/18/18 12:27:13 PM EDT, Tablet, [facility]/pharmacy #[id number] Start Date: 02/18/18 Stop Date: 07/18/18 Status: Ordered Medication Dispense Status: Completed Quantity: 30.0 Unit: tablet Total Allowed Fills: 5 Fills Dispensed: 0 Indications: Hyperlipidemia, unspecified; potassium citrate 10 mEq oral tablet 1 tablet = 10 mEq, By Mouth, 3 times a day, 0 Refills, Maintenance, 02/24/19 11:49:55 AM EDT Start Date: 02/24/19 Status: Ordered Medication Dispense Status: Completed Total Allowed Fills: 1 Fills Dispensed: 0 pravastatin 40 mg oral tablet 1 tablet, By Mouth, Daily, # 90 tablet, 1 Refills, Maintenance, 01/22/25 8:55:00 AM EDT, [facility], 165, cm, 07/13/24 9:30:00 EST, Height, 85.8, kg, 06/29/23 9:15:00 EDT, Dry Weight Start Date: 01/22/25 Status: Ordered Medication Dispense Status: Completed Quantity: 90.0 Unit: tablet Total Allowed Fills: 1 Fills Dispensed: 0 Probiotic Formula (Bacillus Coagulans) oral capsule 1 capsule, By Mouth, Daily, # 30 capsule, 0 Refills, Maintenance, 02/18/18 11:43:49 AM EDT, Capsule Start Date: 02/18/18 Status: Ordered Medication Dispense Status: Completed Quantity: 30.0 Unit: capsule Total Allowed Fills: 1 Fills Dispensed: 0 Tylenol 325 mg oral capsule 2 capsule = 650 mg, By Mouth, 3 times a day, PRN as needed for pain, # 20 capsule, 0 Refills, Maintenance, 01/31/21 8:33:00 AM EDT, Capsule, Partial fill upon patient request if the prescription is fora schedule II opioid drug. Start Date: 01/31/21 Status: Ordered Medication Dispense Status: Completed Quantity: 20.0 Unit: capsule Total Allowed Fills: 1 Fills Dispensed: 0 Vitamin B6 100 mg oral tablet 1 tablet = 100 mg, By Mouth, Daily, 0 Refills, Maintenance, 11/22/20 3:39:00 PM EDT, Partial fill upon patient request if the prescription is for a schedule II opioid drug. Start Date: 11/22/20 Status: Ordered Medication Dispense Status: Completed Total Allowed Fills: 1 Fills Dispensed: 0 Problem List Condition Confirmation Course Effective Dates Status H ealth Status Informant Acute colitis 1 Confirmed 09/23/12 Active Carpal tunnel syndrome 2 Confirmed Active COVID-19 virus infection (February 2022) Confirmed Active Family history of cardiovascular disease 3 Confirmed Active Hyperlipidemia Confirmed Active Hypertension Confirmed Active Hypothyroidism Confirmed Active Impaired Fasting Glucose Confirmed Active Kidney stone 4 Confirmed Active Medullary sponge kidney 5 Confirmed Active Obese class I Confirmed Active FRANK (obstructive sleep apnea) 6 Confirmed 12/05/13 Active Osteoarthritis 7 Confirmed Active Subclinical hypothyroidism 8 Confirmed 12/11/13 Active 1saw GI Dr Roach 2EMG shows findings of a moderate right carpal tunnel syndrome. The study also shows findings of a minimal left carpal tunnel syndrome which is mild enough such that it is probably asymptomatic 3father [place] age 55, CVA in mother 4Dr Carlos 5Dr Carlos nephrology, Dr Everett urologist [place] 59. Recommend auto-titrating CPAP at a pressure range of 9 to 14 cm H2O, along with a small sized Activa LT nasal mask. Heated humidification should be included set to patient comfort level. 7wide spread OA- neck, knees, hands-Dr Zheng 8high TPO antibiodies Social History Social History Type Response Smoking Status Never smoker entered on: 02/07/14 Sex Female Sex Representation Female (finding) Patient Care team information Care Team Personnel Name: Darnell Herron MD Position: [facility] Physician - Primary Care Member Role: PCP Address: [address] [place] [address]- Telecom: Care Team Related Persons Name: SEDRICK SEPULVEDA Name: KRISHNA RAMSEY Insurance Providers Guarantor name: JADA RAMSEY [facility] Information #: 1 Payer: MEDICARE B Payer Identifier: NA Member Number: [id number] Group Number: NA Subscriber Identifier: NA Relationship to Subscriber: self Coverage Type: NA Coverage Verification Date: NA Telecom: NA Address: [facility] Plan Information #: 2 Payer: [facility] INDEMNITY PLAN Payer Identifier: CIARAN Member Number: [id number] Group Number: [id number] Subscriber Identifier: CIARAN Relationship to Subscriber: self Coverage Type: Commercial Indemnity Coverage Verification Date: NA Telecom: NA Address:
--- OUTSIDE RECORDS SUMMARY | 2025-07-06 23:59 | XMS_ITS | Continuity of Care Document ---
Author Organization [facility] Adult Address [address] [place] [address]- Care Team Providers Care Senior Product Development Scientist Name Role Phone Darnell Herron MD Primary Care Physician [place] [facility] [place]/06[place]25 - 07/06/25 [facility] [address] [place] [address]- Encounter Type: Triage Allergies, Adverse Reactions, Alerts Substance Criticality Severity Reaction Reaction Severity Status clindamycin C-Diff Active sulfADIAZINE hives Active trimethoprim Active hydrochlorothiazide hives Active scopolamine rash Active penicillins rash Active Levaquin itchy,hives Active Bactrim Active Celebrex hives Active ceFAZolin rash Active Immunizations Given and Recorded Vaccine Date Status Refusal Reason Influenza Virus Vaccine (oldterm) 06/01/24 Recorde d Influenza Virus Vaccine (oldterm) 06/21/19 Recorde d SARS-CoV-2(COVID-19)mRNA-LNP vac([id number]) 05/10/24 Recorded influenza virus vaccine, inactivated 06/07/23 Marty rded influenza virus vaccine, inactivated 06/01/22 Marty rded influenza virus vaccine, inactivated 06/17/21 Marty rded influenza virus vaccine, inactivated 06/18/20 Give n influenza virus vaccine, inactivated 06/07/18 Give n influenza virus vaccine, inactivated 1 11/09/15 Gi ran influenza virus vaccine, inactivated 11/08/15 Marty rded influenza virus vaccine, inactivated 2 11/27/12 Gi ran [id number] bivalent booster vax 02/13/23 Recorded [id number] bivalent booster vax 06/19/22 Recorded tetanus/diphtheria/pertussis, acel(Tdap) 06/10/22 Recorded SARS-CoV-2 mRNA ([id number]-[id number]) vax 12/21/21 Recorded SARS-CoV-2 (COVID-19) mRNA BNT-162b2 [...] Comment: [10/27/2013] per pt history 3Result Comment: [facility] [id number] 4Result Comment: [facility]: [id number] Medications Chlorthalidone = 25 mg, By Mouth, [...] Refills, Maintenance, 09/17/22 8:32:00 PM EST, [facility], 165, cm, 03/06/22 10:30:00 EDT, Height Start [...] Refills, Maintenance, 06/06/25 8:13:00 AM EDT, Tablet, [facility]/pharmacy #[id number],Partial fill upon patient request if the prescription [...] Refills, Maintenance, 02/18/18 12:27:13 PM EDT, Tablet, [facility]/pharmacy #[id number] Start Date: 02/18/18 Stop Date: 07/18/18 Status: [...] 1 Refills, Maintenance, 01/22/25 8:55:00 AM EDT, [id number], 165, cm, 07/13/24 9:30:00 EST, Height, 85.8, [...] such that it is probably asymptomatic 3father [place] age 55, CVA in mother 4Dr Carlos 5Dr Carlos nephrology, Dr Everett urologist [place] 61. Recommend auto-titrating CPAP at a pressure [...] Team Personnel Name: Darnell Herron MD Position: [facility] Physician - Primary Care Member Role: PCP Address: [address] [place] [address]- Telecom: Care Team Related Persons Name: SEDRICK SEPULVEDA Name: KRISHNA RAMSEY Insurance Providers Guarantor name: JADA RAMSEY [employer] Plan Information #: 1 Payer: MEDICARE B Payer Identifier: NA Member Number: [id number] Group Number: NA Subscriber Identifier: NA Relationship to Subscriber: self Coverage Type: NA Coverage Verification Date: NA Telecom: NA Address: Health Plan Information #: 2 Payer: [facility] INDEMNITY PLAN Payer Identifier: CIARAN Member Number: [id number] Group Number: [id number] Subscriber Identifier: CIARAN Relationship to Subscriber: self Coverage Type: Commercial Indemnity Coverage Verification Date: NA Telecom: NA Address: NA
--- NOTE | ~2025-07-07 | CT_ITS ---
EXAMINATION: CT ABDOMEN AND PELVIS WITHOUT CONTRAST CLINICAL INFORMATION: Medullary cystic kidney COMPARISON: CT 02/22/2019, ultrasound 12/15/2024 TECHNIQUE: Multidetector volumetric imaging was performed from the superior aspect of the liver through the pubic symphysis. Sagittal and coronal reformatted images were obtained on the technologist's workstation. This CT examination was performed using dose optimization techniques as appropriate, variously including the following: *Automated exposure control *Adjustment of mA and/or kV according to patient size (this includes techniques or standardized protocols for targeted exams where dose is matched to indication/reason for exam; i.e. extremities or head) *Use of iterative reconstruction technique FINDINGS: LUNG BASES: The visualized lung bases are unremarkable. LIVER, GALLBLADDER, AND BILIARY TREE: No focal liver lesion. No biliary duct dilatation. Gallbladder appears unremarkable. No radiodense gallstones. PANCREAS: Unremarkable. SPLEEN: Unremarkable. ADRENAL GLANDS: Unremarkable. KIDNEYS AND URETERS: Multiple calculi seen in the right kidney. This includes a cluster of 1-2 mm sized calcifications in the upper pole, cluster of small calcification mid pole overall measuring 7 mm. Multiple calcifications in the left kidney. This includes a cluster of calcifications in the upper pole, measuring 5 mm, scattered calculi in the mid and lower pole. No ureteral calculi identified. No hydronephrosis. There is a small calcification adjacent to the right ureter in the mid abdomen, appearing extrinsic to the ureter. BLADDER: Partially distended with fluid. No definite calculi seen. GASTROINTESTINAL TRACT: Nonobstructive bowel gas pattern. Stomach is distended. Small hiatal hernia. Moderate volume stool in the colon. Sigmoid diverticulosis, without evidence of findings suggest diverticulitis. Appendix is unremarkable. Peritoneum: No free fluid. No fluid collections. No pneumoperitoneum. No mesenteric inflammatory changes. ABDOMINAL WALL: Small fat-containing umbilical hernia. LYMPH NODES: No pathologically enlarged lymph nodes identified. VASCULAR: No aneurysmal dilatation of the aorta. Scattered atherosclerotic vascular calcifications. PELVIC VISCERA: Anteverted uterus. Redemonstrated calcification in the uterus. OSSEOUS STRUCTURES: Lumbar spine levoconvex scoliosis. No suspicious osseous abnormality. 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 No ureteral calculi seen. No hydronephrosis. Fleischner guidelines were followed. Electronically signed by: Godfrey George MD 07/09/2025 12:25 PM EST
--- OUTSIDE RECORDS SUMMARY | 2025-07-07 07:46 | XMS_ITS ---
Author Name [facility] Organization Unknown History of Medication Use Medication Directions Dispensed Refills Start Date End Date Stat us azithromycin 250 mg tablet TAKE 2 TABLETS BY MOUTH 1 HOUR PRIOR TO DENTAL PROCEDURE 3 completed betamethasone, augmented 0.05 % topical cream APPLY TO HANDS TWICE DAILY FOR UP TO 2 WEEKS,TAKE 1 WEEK OFF USING EPICERAM ALONE.REPEAT UNTIL CLEAR 3 completed cyclobenzaprine 5 mg tablet TAKE 1 TABLET BY MOUTH 3 TIMES A DAY FOR 14 DAYS 3 completed Flowflex COVID-19 Antigen Home Test kit REFER TO INSTRUCTIONS ON SALESFORCE ADMINISTRATOR LABEL 3 completed trimethoprim 100 mg tablet TAKE 1 TABLET BY MOUTH EVERY 12 HOURS FOR 5 DAYS 3 completed chlorthalidone 25 mg tablet TAKE 1 TABLET BY MOUTH 1 TIME EACH DAY. active levothyroxine 25 mcg tablet TAKE 1 TAB BY MOUTH FOR 6 DAYS A WEEK AND 2 TABS ON THE SEVENTH DAY OF THE WEEK active metronidazole 0.75 % topical gel APPLY TO FACE TWICE DAILY FOR ONE MONTH THEN ONCE DAILY active potassium citrate ER 10 mEq (1,080 mg) tablet,extended release PLEASE SEE ATTACHED FOR DETAILED DIRECTIONS active pravastatin 40 mg tablet TAKE 1 TABLET BY MOUTH EVERY DAY active pyridoxine (vitamin B6) 100 mg tablet TAKE 1 TABLET BY MOUTH EVERY DAY active Allergies Allergen Reaction Severity Comment Documented Date Source Statu s BACTRIM ENS_[facility]ONECT CELEBREX ENS_AONECT LEVAQUIN ENS_AONECT NSAIDS (NON-STEROIDAL ANTI-INFLAMMATORY DRUG) ENS_AONECT PENICILLINS ENS_AONECT Encounters Encounter Type Encounter Reason Primary Diagnosis Location Date Ambulatory [facility] [place] 04/15/2023 Ambulatory [facility] 04/15/2023 Ambulatory [facility] 04/15/2023 Ambulatory [facility] [place] 04/13/2023 Ambulatory [facility] [place] 04/13/2023 Ambulatory [facility] [place] 04/12/2023 Ambulatory [facility] [place] 04/12/2023
--- OUTSIDE RECORDS SUMMARY | 2025-07-07 07:46 | XMS_ITS | Data Portability ---
Author Organization [place] [facility] Address [address] [place] [address] Care Team Providers Care Energy Manager Name Role Phone JOSE NESBITT Primary Care [...] By Organization Details Last Modified Time 03/05/2022 [id number] You came to the ED for evaluation [...] completed SALAS RICARDO NP [address], [place], [address], [place] [facility] 03/05/2022 16:19:48 total replacement of left knee joint completed SALAS RICARDO NP [address], [place], [address], [place] [facility] 03/05/2022 15:00:24 excision of cervical intervertebral disc completed SALAS RICARDO NP [address], [place], [address], [place] [facility] 03/05/2022 15:00:41 Imaging Results None recorded. Procedure [...] in Arterial blood by Pulse oximetry Systolic And Diastolic Provider Name and Address Organization Details Last Updated DateTime 2 16 /min 77 /min 97.8 [degF] 97 % 97 % 128/86 mm[Hg] Not Available [facility] 2 14:56:07 Social History None recorded. Functional Status None recorded. Mental Status None recorded. Family History Nothing Reported. Medical History Condition Response Diabetes N Coronary Artery Disease N CHF N Parkinson's Disease N Cancer Y Dementia N Stroke N Hypothyroidism Y Depression N COPD N Asthma N High Cholesterol Y Rheumatoid Arthritis N Pulmonary Embolism N Hypertension N A-fib N Kidney Disease N Gynecological HistoryNo gynecological history recorded. Obstetrics History GPAL:G 0 P 0 0 0 0 Past Encounters Encounter ID Performer Location Encounter Start Date Encounter Closed Date Diagnosis/Indication Diagnosis SNOMED-CT Code Diagnosis ICD10 Code Diagnosis IMO Codes Diagnosis Note [id number] SALAS RICARDO NP [facility] [address] [place] [address] 03/05/2022 14:50:04 03/06/2022 10:07:00 Atypical chest pain 432965781 R07.89 COVID-19 [id number] U07.1 Health Concerns Section Related Observation LastModified by Organization Paula topete LastModified Time None Recorded Concern Status LastModified by Organization Details LastModified Time None Recorded Advance Directives Directive None Recorded Payers Insurance Date Sequence Insurance Name Policy Number Policy Magana Covered Member ID Magana Member ID Guarantor Name 03/12/2022 2 [facility] [employer] PLAN F (MEDICARE SUPPLEMENT) [id number] Juve Licona [id number] Juve Licona 03/12/2022 1 MEDICARE B-[place]: [facility] [employer] SERVICES Juve Licona [id number] Juve Licona 03/06/2022 1 *SELF PAY* Juve Licona [id number] Juve Licona Notes Date Note Type Note [...] her PCP office who had patient [facility] for [facility].Pt currently has minimal chest discomfort that is midsternal and non radiating. She denies any shortness of breath, activity intolerance, nausea, vomiting or diaphoresis. She denies any leg swelling. SALAS RICARDO NP [facility] [address], [place], [address], [place] [facility] 03/05/2022 16:36:15 OBGyn Episode No OBEpisode recorded.
--- OUTSIDE RECORDS SUMMARY | 2025-07-07 07:46 | XMS_ITS | Clinical Summary ---
Author Organization [facility] Address [address] [address] Phone Care Team Providers Care Artillery Maintenance Supervisor Name Role Phone Darnell Herron MD Primary Care Provider [phone] Allergies Active Allergy Reactions Criticality Noted Date Comments Celecoxib 06/13/2020 Hydrochlorothiazide 06/13/2020 Levofloxacin Hives 06/13/2020 Nsaids (Non-Steroidal Anti-I nflammatory Drug) 06/13/2020 Penicillins Rash Low 06/13/2020 Phenazopyridine 06/13/2020 Sulfa (Sulfonamide Antibiotics) 05/30 Social History Tobacco Use Types Packs/Day Years Used Date Smoking Tobacco: Never Assessed Education Answer Date Recorded Are you interested in more education? Not on brandyn e 12/25/2022 Are you concerned about learning? Not on file 12/25/2022 No 12/25/2022 No 12/25/2022 Digital Access Answer Date Recorded No 01/23/2023 No 01/23/2023 No 01/23/2023 Reliable internet access at home? Not on file 01/23/2023 Device with a working camera? Not on file Comments Unknown Sex and Gender Information Value Date Recorded Sex Assigned at Not on file Legal Sex Female 10:36 PM EDT Gender Identity Not on file Sexual Orientation Not on file Last Filed Vital Signs Vital Sign Reading Time Taken Comments Blood Pressure 133/93 06/13/2020 5:05 PM EDT Pulse 91 06/13/2020 2:12 PM EDT Temperature 36.9 C (98.5 F) 06/13/2020 2:12 PM EDT Respiratory Rate 20 06/13/2020 3:11 PM EDT Oxygen Saturation 98% 06/13/2020 5:05 PM EDT Inhaled Oxygen Concentration - - Weight - - Height - - Body Mass Index - - Plan of Treatment Health Maintenance Due Date Last Done Comments Adult Td,Tdap Booster 1953 LIPID PANEL 1953 DEPRESSION SCREENING 1965 SMOKING Hx and SMOKELESS TOBACCO SCREENING 1966 HEPATITIS C SCREENING 1971 MAMMOGRAM 1993 COLOGUARD 1998 COLONOSCOPY 1998 COLORECTAL CANCER SCREENING 1998 FIT TEST 1998 FOBT 1998 SIGMOIDOSCOPY 1998 VIRTUAL COLONOSCOPY 1998 ZOSTER VACCINES (1 of 2) 2003 OSTEOPOROSIS SCREENING INITIAL (ONE-TIME) 2018 PNEUMOCOCCAL VACCINES (50+ years) (2 of 2 - PCV) 01/31/2022 01/31/2021 INFLUENZA VACCINE (#1) 2025 , 06/21/2019, 06/07/2018, Additional history exists COVID-19 VACCINE (3 - 2024- season) 2025 11/28/2020, 11/07/2020 RSV VACCINE (1 - 1-dose 75+ series) 2028 HEPATITIS A VACCINES Aged Out No long er eligible based on patient's age to complete this topic HIB VACCINES Aged Out No longer eligi ble based on patient's age to complete this topic MENINGOCOCCAL VACCINES (ACWY) Aged Out No longer eligible based on patient's age to complete this topic MENINGOCOCCAL VACCINES (B) Aged Out N o longer eligible based on patient's age to complete this topic Medical Devices Not on [place] [address] [place] [address] [employer] INSURANCE Care Teams Artillery Maintenance Supervisor Relationship Specialty Start Date End Date Darnell Herron MD [address] [facility] [place] [address] PCP - General Internal Medicine 06/13/20 Additional Source Comments The information contained in this document represents components of the legal health record. It is not the complete legal health record.[facility]
--- OUTSIDE RECORDS SUMMARY | 2025-07-07 07:46 | XMS_ITS | Data Portability ---
Author Organization [facility] Elias Ziegler [facility] [place] Address [address] [place] [address] Care Team Providers Care Senior Safety Support Manager Name Role Phone JOSE NESBITT Referring Provider [phone] Assessment Encounter Date Assessment Date Assessment LastModified [...] findings at length with the patient today. We discussed the nature and etiology of this problem along with current treatment options. We discussed the expected course and outcomes and what to expect. We also discussed risks and benefits. All of their questions were answered today, and there was exhibited understanding and comprehension of all that was discussed. Time Spent: 10 minutes were spent reviewing previous imaging and charting. 10 minutes were spent obtaining patient history. 5 minutes were spent on physical exam. 5minutes were spent explaining diagnosis and assessment. Today's [...] knee, 3 view 023 04/15/20 23 [email or web address] [facility], [address], [place], [address], 3 11:24:06 Medication Orders None record ed. Patient TargetsNo targets recorded. Patient Instructions Encounter Date Encounter Id Patient Instructions Last Modified By Organization Details Last Modified Time 04/15/2023 [id number] X-rays of the left knee reveal well-seated well-positioned left total knee arthroplasty without sign of loosening. No acute bony abnormality. Not available 04/16/2023 08:08:21 Reason for Referral None Reported. Problems Name Problem SNOMED Code Status Onset Date Resolution Date Notes Provider Name and Address Organization Details Recorded Time Surgical follow-up 014065447 Active 018 Postop check Not Available [facility] 5 00:41:47 Problem Notes None recorded. Procedures Surgical History Date Name Laterality Status Provider Name and Address Organization Details Recorded Time Head or Neck Surgery completed [facility] 04/15/2023 15:49:23 total knee replacement completed [facility] 04/15/2023 15:49:59 procedure on tonsils completed [facility] 04/15/2023 15:50:14 section completed [facility] 04/15/2023 15:50:23 lithotripsy completed Mayuri Cohagen [facility] 04/15/2023 15:50:59 Imaging Results None recorded. Procedure Notes None recorded. Medical Equipment None Reported. Allergies Allergen ID Allergen Name Allergen Category Reaction Reaction Severity Criticality Documentation Date Start Date Code Code System Note Provider Name and Address Organization Details Recorded Time 7295 Product containin g penicilli n (product) medicatio n Not available Not available Not available 04/15/2023 14369 8001 SNOMED Mayuri Saldaña null, [place] [facility] 3 15:41:41 7296 Levaquin medicatio n Not available Not available Not available 04/15/2023 12792 2 RxNorm Mayuri Saldaña null, [place] [facility] 3 15:41:49 7297 Bactrim medicatio n Not available Not available Not available 04/15/2023 20582 9 RxNorm Mayuri Saldaña null, [place] [facility] 3 15:42:26 7298 Celebrex medicatio n Not available Not available Not available 04/15/2023 82323 7 RxNorm Mayuri Saldaña null, [place] [facility] 3 15:42:36 7299 Non-stero idal anti-infl ammatory agent (substanc e) medicatio n Not available Not available Not available 04/15/2023 14107 5008 SNOMED Mayuri Saldaña null, [place] [facility] 3 15:43:29 07123 ketorolac trometham ine medicatio n Not available Not available Not available 05/22/20252017 22745 RxNorm Not Available [facility] 5 01:21:54 37679 phenazopy ridine medicatio n Not available Not available Not available 05/22/20252017 8120 RxNorm Not Available [facility] 5 01:21:54 77544 sulfameth oxazole / trimethop rim medicatio n Not available Not available Not available 05/22/20252017 85979 RxNorm Not Available [facility] 5 01:21:55 65238 levofloxa georgette medicatio n Not available Not available Not available 05/22/20252017 74485 RxNorm Not Available [facility] 5 01:21:55 61767 celecoxib medicatio n Not available Not available Not available 05/22/20252017 99426 7 RxNorm Not Available [facility] 5 01:21:55 12386 cefazolin medicatio n Not available Not available Not available 05/22/20252021 2180 RxNorm React ion: Other (See Comme nts), sever ity: Unkno wn Not Available [facility] 5 01:21:55 00266 clindamyc in Not available Not available Not available Not available 05/22/20252021 2582 RxNorm Other react ion(s ): C-Dif f Not Available [facility] 5 01:21:56 29740 hydrochlo rothiazid e medicatio n Not available Not available Not available 05/22/20252021 5487 RxNorm React ion: Hives , sever ity: Unkno wn Not Available [facility] 5 01:21:56 38620 sulfadiaz ine medicatio n Not available Not available Not available 05/22/20252021 31644 RxNorm React ion: Hives , sever ity: Unkno wn Not Available [facility] 5 01:21:56 20747 butylscop olamine bromide Not available Not available Not available Not available 05/22/20252021 1851 RxNorm React ion: Rash, sever ity: Unkno wn Not Available [facility] 5 01:21:57 Medications Name Sig Start Date Stop Date Status Note LastModified by Organization Details LastModified Time cyclobenzap rine 10 mg tablet TAKE 1 TABLET BY MOUTH AT BEDTIME NEEDED 2017 active Not Available Not Available Not Avai lable doxycycline hyclate 100 mg capsule 2018 active Not Available Not Available Not Avai lable clindamycin HCl 300 mg capsule Take 2 capsules 1 hour prior to dental appointme nt 2017 active Not Available Not Available Not Avai lable azithromyci n 250 mg tablet TAKE 2 [...] completed Not Available Not Available Not Available itraconazol e 10 mg/mL oral solution TAKE 10 ML BY MOUTH 2 TIMES A DAY,X14 DAYS 2019 active Not Available Not Available Not Avai lable chlorthalid one 25 mg tablet TAKE 1 TABLET BY MOUTH 1 TIME EACH DAY. active Not Available Not Available No t Available prochlorper azine maleate 10 mg tablet 2017 active Not Available Not Available Not Avai lable trimethopri m 100 mg tablet TAKE 1 TABLET BY MOUTH EVERY 12 HOURS FOR 5 DAYS 04/15 completed Not Available Not Available Not Available allopurinol 100 mg tablet Take 100 mg by mouth. active Not Available Not Available No t Available tramadol 50 mg tablet tramadol 50 mg tabletTAK E 1 TABLET BY MOUTH EVERY 6 HOURS NEEDED FOR MILD PAIN active Not Available Not Available No t Available acetaminoph en 500 mg tablet Take 2 tablets by mouth 3 (three) times a day. active Not Available Not Available No t Available levothyroxi ne 25 mcg tablet TAKE 1 TAB BY MOUTH FOR 6 DAYS A WEEK AND 2 TABS ON THE SEVENTH DAY OF THE WEEK active Not Available Not Available No t Available tamsulosin 0.4 mg capsule TAKE 1 CAPSULE BY MOUTH EVERY DAY AT BEDTIME FOR 2 WEEKS 2021 active Not Available Not Available Not Avai lable potassium citrate ER 10 mEq (1,080 mg) tablet,exte nded release PLEASE SEE ATTACHED FOR DETAILED DIRECTION S active Not Available Not Available No t Available omeprazole 20 mg capsule,del ayed release 2018 active Not Available Not Available Not Avai lable pyridoxine (vitamin B6) 100 mg tablet Take 100 mg by mouth. active Not Available Not Available No t Available gabapentin 100 mg capsule Take 1 capsule (100 mg total) by mouth 3 (three) times a day. 2019 active Not Available Not Available Not Avai lable warfarin 1 mg tablet Take 4 tabs daily or as directed by physician 11/09 completed Not Available Not Available Not Available metronidazo le 0.75 % topical gel APPLY TO FACE TWICE DAILY FOR ONE MONTH THEN ONCE DAILY active Not Available Not Available No t Available naproxen 500 mg tablet TAKE 1 TABLET BY MOUTH TWICE A DAY FOR 7 DAYS NEEDED FOR PAIN 2021 active Not Available Not Available Not Avai lable cyclobenzap rine 5 mg tablet TAKE 1 TABLET BY MOUTH 3 TIMES A DAY FOR 14 DAYS 04/15 completed Not Available Not Available Not Available ProAir HFA 90 mcg/actuati on aerosol inhaler INHALE 2 PUFFS EVERY 4 HOURS NEEDED 2017 active Not Available Not Available Not Avai lable Flowflex COVID-19 Antigen Home Test kit REFER TO ISAC CEE ON MANUFACTU RER LABEL 04/15 completed Not Available Not Available Not Available Vitals Date Recorded Body height Body mass index (BMI) Body weight Provider Name and Address Organization Details Last Updated DateTime 04/15/2023 165.1 cm 30 kg/m2 14651.[address]ña [facility] 04/15/2023 15:43:46 Social History None recorded. Functional [...] ICD10 Code Diagnosis IMO Codes Diagnosis Note [id number] [facility] [address] [address] 04/15/2023 10:48:00 04/15/2023 11:24:05 History of left total knee replacement [id number] 767849 Z96.652 Health Concerns Section Related Observation LastModified by Organization Detai ls LastModified Time None Recorded Concern Status LastModified by Organization Details LastModified Time None Recorded Advance Directives Directive None Recorded Payers Insurance Date Sequence Insurance Name Policy Number Policy Magana Covered Member ID Magana Member ID Guarantor Name 04/12/2023 1 [place]: [employer] Juve Shyam Searskianroberto [id number] Juve Licona 04/15/2023 2 [facility] F (MEDICARE SUPPLEMENT) [id number] Juve Shyam Licona [id number] Juve Monae Notes Date Note Type Note Provider Name and Address Organization Details Recorded Time 04/15/2023 text/html This is a very pleasant 67-year-old female here for follow-up on her left total knee arthroplasty performed by Dr. Jang on 01/03/2018. Patient states she is feeling well. She does her stretching exercises. She has occasional discomfort that is tolerable and manageable with terv-dep-ckdrtlj pain medication when she overdoes it. No other complaints at this time. JAVON CHOWDARY PA-C [address] [address], [place], [address], [facility] 04/16/2023 08:08:46 OBGyn Episode No OBEpisode recorded.
--- OUTSIDE RECORDS SUMMARY | 2025-07-07 07:46 | XMS_ITS | Clinical Summary ---
Author Organization [facility] Address [address] [place] [address] Phone Care Team Providers Care Door To Door Sales Representative Name Role Phone Darnell Herron MD Primary Care Provider [phone] Allergies Active Allergy Reactions Criticality Noted Date [...] EACH DAY. 90 tablet 3 4 Active Active Problems Problem Noted Date Diagnosed Date Carpal tunnel syndrome 06/29/2022 Overview (06/29/2022): EMG shows findings of a moderate right carpal tunnel syndrome. The study also shows findings of a minimal left carpal tunnel syndrome which is mild enough such that it is probably asymptomatic FH: Cardiovascular disease 06/29/2022 Overview (06/29/2022): father [place] age 55, CVA in mother Hyperlipidemia 06/29/2022 Hypertensive disorder 06/29/2022 Impaired fasting glycemia 06/29/2022 Obese class I 06/29/2022 Osteoarthritis 06/29/2022 Overview (06/29/2022): wide spread OA- neck, knees, hands-Dr Zheng [id number] 03/03/2022 Acute kidney failure with medullary necrosis [...] 09/23/2012 Overview (06/29/2022): saw GI Dr Roach Immunizations Immunization Administration Dates Next Due [...] Visit [facility] [address] [place] [address] [place] [address] Marbin Gonzalez MD [address] [facility] [address] [place] [address] Health Maintenance Due Date Last Done Comments Breast Cancer Screening 1955 Colorectal Cancer Screening: Annual FOBT 2002 Colorectal Cancer Screening: Colonoscopy 2002 Colorectal Cancer Screening: Sigmoidoscopy 2002 Influenza Vaccine (#1) 2025 4, 06/17/2021, 06/18/2020, Additional history exists Pneumococcal Vaccine: 50+ Years Completed 01/31/2021, 01/26/2020 Pneumococcal Vaccine: Peds (0 to 5 Years) and At-Risk Patients (6 to 49 Years) Discontinued 01/31/2021, 01/26/2020 Hepatitis B Vaccine Aged Out No longe r eligible based on patient's age to complete this topic Insurance Medicare [facility] Medicare [facility] Care Teams Door To Door Sales Representative Relationship Specialty Start Date End Date Darnell Herron MD [address], [place] PCP - General 09/09/20
--- OUTSIDE RECORDS SUMMARY | 2025-07-07 07:46 | XMS_ITS | Patient Health Record ---
Author Organization [facility] Address [address] [place] [address] Care Team Providers Care Day Care Home Mother Name Role Phone Darnell Herron MD Primary Care Provider Emmanuel Henriquez Jr Unavailable [phone] Allergies Allergen (clinical drug ingredient) Drug/Non Drug Allergy documented on EMR Reaction Allergy Type Onset Date Status Levaquin Unknown Drug Allergy Active hydrochlorothiazide Hydrochlorothiazide Unknown Drug Aller gy Active celecoxib Celebrex Unknown Drug Allergy Active sulfamethoxazole / trimethoprim Bactrim DS Unknown Drug Allergy Active sulfamethoxazole / trimethoprim Bactrim Unknown Drug Allergy Active 12 Hour Nasal [place] Unknown Drug Allergy Active vancomycin Vancomycin Unknown Drug Allergy Activ e ephedrine Ephedrine Unknown Drug Allergy Active Penicillin Unknown Drug Allergy Active phenazopyridine Pyridium Unknown Drug Allergy A ctive Reason For Referral No Information Medications Medication [...] at 5:00 p.m. the day before the procedure; Duration: 1 day 11/04/2023 Active Align 4 MG Orally Active Prochlorperazine Maleate 10 MG 1 tablet Orally Three times a day/prn Active Chlorthalidone 25 MG Oral; Duration: 90 Active Vitamin B-6 100 MG TAKE 1 TABLET BY MOUTH EVERY DAY Oral; Duration: 90 Active Problems Problem Type SNOMED Code ICD Code Onset Dates Problem Status W/U Status Risk Notes Problem Colon cancer screening (298184559) Colon cancer screening (Z12.11) Active confirmed Problem Long-term current use of antiplatelet drug (095471552379322 ) termite control representative (current) use of aspirin (Z79.82) Active confirmed Problem Clostridium difficile infection (651850729) Clostridium difficile infection (B96.89) Active confirmed Problem Esophageal dysmotility (655009999) Esophageal dysmotility (K22.4) Active confirmed Problem Abdominal pain (33840245) Abdominal pain, unspecified abdominal location (R10.9) Active confirmed Problem Long-term current use of drug therapy (314318312) termite control representative current use of diuretic (Z79.899) Active confirmed Plan Of Treatment Future Test Test Name Order Date COLONOSCOPY 10/05/2012 COLONOSCOPY 03/30/2018 COLONOSCOPY 11/04/2023 Insurance Providers Payer Name Payer Address Payer Phone Subscriber Number Group Number Insured Name Patient Relationship to Insured Coverage Start Date Coverage End Date MEDICARE OF [place] [address] [place] [address] [id number] JADA RAMSEY Self - patient is the insured [employer] [address] [place] [address] [id number] JADA RAMSEY Self - patient is the [...]
--- OUTSIDE RECORDS SUMMARY | 2025-07-07 07:46 | XMS_ITS | Clinical Summary ---
Author Organization [facility] Address [address] [id number] Care Team Providers Care Molten Iron Pourer Name Role Phone Darnell Herron MD Primary Care Provider [phone] Allergies Active Allergy Reactions Criticality Noted Date [...] DAILY PO) Take by mouth. 0 Active [place]-3 Fatty Acids (FISH OIL PO) Take by [...] (DEXA Scan) 2018 COVID-19 Vaccine ( season) 2025 12/21/2021, 07/03/2021, 11/28/2020, Additional history exists Influenza Vaccine (#1) 2025 , 06/18/2020, 06/07/2018, Additional history exists RSV Adult > 60+ Yrs or (1 - 1-dose 75+ series) 2028 Pneumococcal Vaccine Completed 01/31/2021, 01/26/20 20 Hepatitis B Vaccines Aged Out No long er eligible based on patient's age to complete this topic RSV Ped < 20 months Aged Out No longe r eligible based on patient's age to complete this topic Care Teams Molten Iron Pourer Relationship Specialty Start Date End Date Darnell Herron MD [address] [place] [address] PCP - General Internal Medicine 09/13/17
--- OUTSIDE RECORDS SUMMARY | 2025-07-07 07:46 | XMS_ITS | Encounter Summary ---
Author Organization [facility] Address [address] [facility] [address] [place] [address] Phone Care Team Providers Care Torch Burner Name Role Phone Darnell Herron MD Primary Care Provider [phone] Encounter Details Date Type Department Care Team (Late st Contact Info) Description 06/13/2020 Procedure Pass [facility], Ct Scan - [address] [address] Social History Tobacco Use Types Packs/Day Years Used Date Smoking Tobacco: Never Assessed Comments Unknown Sex and Gender Information Value Date Recorded Sex Assigned at Not on file Legal Sex Female 10:36 PM EDT Gender Identity Not on file Sexual Orientation Not on file documented as of this encounter Plan of Treatment Not on file documented as of this encounter Visit Diagnoses Not on filedocumented in this encounter Care Teams Torch Burner Relationship Specialty Start Date End Date Darnell Herron MD [address] [place] [address] PCP - General Internal Medicine 06/13/20 documented as of this encounter Additional Source Comments The information contained in this document represents components of the legal health record. It is not the complete legal health record.[facility]
== END 2025-07-07 07:44 | disposition home or self-care (01) ==
LOC: HO.CT 07:43
PROVIDERS: Visit Provider Urology
DX: Q61.5 Medullary cystic kidney (principal)
CPT/HCPCS: 74176

== ENCOUNTER → 2025-07-07 07:45 | Outpatient (BNV) | payer MEDICARE, OTHER, SELFPAY | PROVIDERS: Visit Provider Radiology Diagnostic Ultrasound | DX: Q61.5 Medullary cystic kidney (principal); N20.0 Calculus of kidney; E83.59 Other disorders of calcium metabolism | CPT/HCPCS: 74176 ==

== ENCOUNTER 2025-07-17 09:15 | Outpatient (AMB) | payer MEDICARE, OTHER, SELFPAY ==
--- NOTE | 2025-07-17 09:20 | A.OFFVIS_ITS ---
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 Accompanied by: Self / Same As Patient Allergies cefazolin Allergy (Intermediate, Verified 07/17/25 09:21) Itching celecoxib (From CELEBREX) Allergy (Intermediate, Verified 07/17/25 09:21) HIVES ciprofloxacin (From CIPRO) Allergy (Intermediate, Verified 07/17/25 09:21) HIVES clindamycin (CLINDAMYCIN) Allergy (Intermediate, Verified 07/17/25 09:21) C-DIF hydrochlorothiazide (HYDROCHLOROTHIAZIDE) Allergy (Intermediate, Verified 07/17/25 09:21) HIVES levofloxacin (From LEVAQUIN) Allergy (Intermediate, Verified 07/17/25 09:21) HIVES Penicillins (PENICILLINS) Allergy (Intermediate, Verified 07/17/25 09:21) HIVES Sulfa (Sulfonamide Antibiotics) (SULFA (SULFONAMIDE ANTIBIOTICS)) Allergy (Intermediate, Verified 07/17/25 09:21) HIVES trimethoprim Allergy (Intermediate, Verified 07/17/25 09:21) Angioedema phenazopyridine (Pyridium) Allergy (Mild, Verified 07/17/25 09:21) Rash sulfamethoxazole (From Bactrim) Allergy (Mild, Verified 07/17/25 09:21) rash vancomycin Adverse Reaction (Intermediate, Verified 07/17/25 09:21) Rash From TORADOL Allergy (Intermediate, Uncoded 01/11/25 09:13) ? LETHARGY bactrim Allergy (Unknown, Uncoded 01/11/25 09:13) Unknown HPI Comments Details: Juve is a pleasant female. She is a patient of Dr Herron. She is seen for the following urologic conditions - Nephrology - Dr Gonzalez - nephrolithiasis - Medullary sponge kidney Six-month follow-up Continue with vitamin B6, citrate, lemon juice, chlorthalidone Prior 24 hour urine Good urine output, low sodium, low calcium, average oxalate Main issue we talked about was citrate. Despite 60 mEq daily citrate less than 300. She is on maximal tolerated citrate therapy. Previously had tried powder but associated with diarrhea. More stone burden right side stone burden has slowed substantially with combination therapy using potassium citrate, chlorthalidone, vitamin B6 Has chlorthalidone from Nephrology CT scan with minimal stone burden. She is doing very well. Is keeping up on her medications. Has decreased frequency of stone formation Nephrolithiasis Patient with medullary sponge kidney who is a chronic stone former with a history of multiple ESWL as the patient does not tolerate stents. Imaging - US 09/19 1.9 cm right renal stone was 0.8 cm left renal stone - 11/17 US right renal stone 1.2 cm, left renal stone 6 mm - 03/19 renal ultrasound bilateral Medullary sponge no clear definitive stones - 12/19 renal ultrasound Medullary sponge kidney 6 mm stones bilateral - 08/20 renal ultrasound Medullary sponge kidney bilateral submucosal calcifications - 07/22 renal ultrasound - bilateral stones Medullary sponge kidney left worse than right - 02/20 renal ultrasound bilateral stones, Medullary sponge kidney, up to 7 mm right, 6 mm left Interventions - 11/17 ESWL left and right side separate. - 12/18 right ureteroscopy - significant amount of imbedded stone material with post pyelonephritis requiring IV antibiotics - 06/19 left ureteroscopy with similar amount of imbedded stone as right side - 01/18 left ureteroscopy with imbedded stone - 10/23 left ureteroscopy with small imbedded submucosal stones 24 hour urines - 01/17 great urine output, normal calcium, normal oxalate, normal sodium, borderline citrate - 3 L urine output - add potassium citrate - 08/21 good urine output, calcium okay at 01:50, sodium 135 could be around 100, citrate 280 despite supplementation, oxalate 36, pH 7.5 PFSH Medical History PONV (postoperative nausea and vomiting) Herniated disc, cervical Arthritis Back pain Thyroid disease History of colitis Sleep apnea Elevated cholesterol Cervical cancer Renal stones Surgical History Hx of fusion of cervical spine Hx of lithotripsy Hx of tonsillectomy Hx of total knee arthroplasty H/O colonoscopy Hx of cystoscopy History of Social History Are you a primary assistant child care teacher to a significant other at home: No Do you presently have visiting nurse or other home services: No Alcohol intake: never Patient Tobacco Use Status: Never used Tobacco Current occupational status: retired Review of Systems Const Denies chills and Denies fever(s) Card Reports no additional complaints and Denies syncope Resp Denies cough GI Denies abdominal pain and Denies heartburn Reports as per HPI and Denies change in libido Neuro Denies syncope Psych Denies change in libido Endo Denies change in libido Physical Exam Const General: cooperative, healthy appearing, comfortable and no acute distress Orientation/consciousness: patient oriented x3 HEENT Face and sinus: Yes normal facial exam Mouth: moist mucous membranes Neck Neck: Yes normal visual inspection, Yes full ROM and Yes trachea midline Chest Chest palpation & inspection: normal inspection of the chest Resp Effort & Inspection: normal respiratory effort, able to speak in complete sentences and no respiratory distress GI Inspection: Yes normal to inspection Back/Spine/Pelvis Cervical Spine: normal cervical lordosis Thoracic/Lumbar Spine: thoracic and lumbar spine normal to inspection Skin General skin exam: no rashes or lesions noted Neuro General: patient oriented x3, gait normal, tone normal and moves all extremities Extrem General: Yes normal to inspection and Yes capillary refill normal Assessment & Plan Assessment & Plan (1) Medullary sponge kidney: Code(s): Q61.5 - Medullary cystic kidney Category: Medical Plan Continue medications six-month follow-up office Orders: Orders XR [facility] 6 Months Q61.5 - Medullary cystic kidney Patient Instructions: This note is constructed using voice recognition software. While every effort has been made to ensure accuracy log cutter errors may have been included. Imaging studies, laboratory and physical exam results were discussed and reviewed in detail. No major barriers to patient understanding were identified. An opportunity to ask questions regarding the treatment plan was provided. All questions were answered. The patient expressed understanding and agreement with the above treatment plan. The patient is aware they should contact our office by phone for worsening of their current condition or the appearance of new urologic symptoms. Compliance is encouraged with any medications and followup testing that is ordered. It is a privilege to participate in the urologic care of your patient. If you have any questions or concerns regarding treatment for the above conditions, or other urologic issues, please do not hesitate to contact me. The office telephone contact is [phone]. Sincerely, Dr Beau Cuevas MD, [facility] - Urology Compassionate Specialist Care for the Genitourinary System Coding Level of Care Code Est Pt Level 3 (57404) Complex EM visit Add On G2211 Diagnoses Medullary sponge kidney Q61.5
== END 2025-07-17 09:45 | disposition home or self-care (01) ==
LOC: HO.HUSH 09:17
PROVIDERS: PCP Internal Medicine; Visit Provider Urology
DX: Q61.5 Medullary cystic kidney (principal)
CPT/HCPCS: 99213; G2211

== ENCOUNTER → 2025-07-17 09:15 | Outpatient (BNVA) | payer MEDICARE, OTHER, SELFPAY | PROVIDERS: PCP Internal Medicine; Visit Provider Urology | DX: Q61.5 Medullary cystic kidney (principal) | CPT/HCPCS: 99212 ==